=== PATIENT | male | born 1975 ===

== ENCOUNTER 2024-01-07 00:12 | Inpatient (IN) | payer OTHER, SELFPAY ==
[2024-01-07] VITALS (7 sets, daily range): BP systolic 107–148; BP diastolic 76–97; PULSE 68–99; RESP 12–18; TEMP 36–37.8; O2SAT 94–100; BMI 30.5
--- NOTE | 2024-01-07 | ECG_ITS ---
Test Reason : AMS Blood Pressure : / mmHG Vent. Rate : 085 BPM Atrial Rate : 085 BPM P-R Int : 166 ms QRS Dur : 084 ms QT Int : 370 ms P-R-T Axes : 055 005 016 degrees QTc Int : 440 ms Normal sinus rhythm Normal ECG No previous ECGs available Referred By: Generic ED Physician Electronically Signed By:BRENNAN PAINTING
--- NOTE | ~2024-01-07 | XR_ITS ---
EXAMINATION: XR CHEST CLINICAL INFORMATION: Aspiration pneumonia, cough COMPARISON: None available. TECHNIQUE: Frontal view of the chest was obtained. FINDINGS: Lung volumes are symmetric. No focal consolidation is seen. No evidence of pneumothorax, pleural effusion, or pulmonary edema. The cardiomediastinal contour is unremarkable. No acute osseous findings are seen. XR/XR chest 1V IMPRESSION: No acute cardiopulmonary findings.
--- NOTE | ~2024-01-07 | CT_ITS ---
EXAMINATION: CT HEAD WITHOUT CONTRAST CLINICAL INFORMATION: Agitation, now sedated. COMPARISON: None TECHNIQUE: Contiguous axial imaging was performed from the skull base to vertex without intravenous administration of contrast. This CT examination was performed using dose optimization techniques as appropriate, variously including the following: *Automated exposure control *Adjustment of mA and/or kV according to patient size (this includes techniques or standardized protocols for targeted exams where dose is matched to indication/reason for exam; i.e. extremities or head) *Use of iterative reconstruction technique DLP: 692 mGy-cm FINDINGS: There is no evidence of acute intracranial hemorrhage or edematous territorial infarction. There is no abnormal attenuation within the brain parenchyma. Leon-white matter differentiation is preserved. The ventricles are normal in size and configuration. No evidence for obstructive hydrocephalus. No abnormal mass effect or midline shift. No extra-axial fluid collections. No acute soft tissue or osseous abnormalities. The mastoid air cells and paranasal sinuses are clear. CT/CT head/brain wo IV con IMPRESSION: No evidence of acute intracranial hemorrhage or edematous territorial infarction.
--- NOTE | 2024-01-07 00:52 | MHC.EDTECH ---
Pt refused lab work. SABI Vera aware.
--- NOTE | 2024-01-07 01:40 | PC.NURSE ---
Pt continues to be confused in bed. Pt was uncooperative for lab draw. Per EMS, pt was given multiple doses of ativan prior to coming to the emergency room. Pt is nondiaphoretic, slight tremors in the hands. Pt keeps sitting up in bed, grabbing for a bedside chair. Pt is redirectable but continues to sit up and get to the edge of the bed.
--- NOTE | 2024-01-07 02:03 | PC.NURSE ---
20g IV placed in the right AC. Labs drawn and sent
[2024-01-07 02:09] LABS: Eosinophils Absolute Auto 0.1 X10*3/uL (0.0-0.4); Eosinophils Percent Auto 1.2 % (0-4); Hemoglobin 12.6 g/dl (14.0-18.0); PLT CLUMP 1; SCAN SMEAR FLAG 1
[2024-01-07 02:10] LABS: Basophils Percent Auto 0.8 % (0-2); Hematocrit 36.5 % (42.0-52.0); Imm Gran Abs Auto 0.01 X10*3/uL (0.00-0.03); Imm Gran Pct Auto 0.2 % (0.0-0.4); Lymphocytes Absolute Auto 1.1 X10*3/uL (1.2-4.9); Lymphocytes Percent Auto 22.8 % (20-40); Mean Corpuscular HGB Conc 34.5 g/dl (31.0-36.0); Mean Corpuscular Hemoglobin 33.4 pg (27.0-33.0); Mean Corpuscular Volume 96.8 fL (80.0-98.0); Monocytes Absolute Auto 0.6 X10*3/uL (0.1-1.2); Monocytes Percent Auto 11.4 % (2-11); Neutrophils Absolute Auto 3.1 x10*3/uL (2.0-8.3); Neutrophils Percent Auto 63.6 % (45-73); Red Blood Count 3.77 X10*6/uL (4.60-5.80); Red Cell Distribution Width 13.5 % (11.0-16.0)
[2024-01-07 02:11] LABS: White Blood Count 4.8 X10*3/uL (4.8-10.8)
[2024-01-07 02:12] LABS: MANUAL DIFF FLAG NO
[2024-01-07 02:20] LABS: Appearance Urine Clear; Color Urine Dark Yellow; Glucose Urine UA Negative (Negative); Leukocyte Esterase Urine Trace (Negative); Nitrite Urine Negative (Negative); PH 6.5 (5.0-9.0); UMIC TRIGGER UACC YES; Urine Blood Negative (Negative); Urine Ketones Trace mg/dL (Negative); Urine Protein Trace mg/dL (Neg-Trace)
[2024-01-07 02:26] LABS: Alanine Aminotransferase 289 U/L (0-40); Albumin Level 4.4 g/dL (3.5-5.0); Alkaline Phosphatase 69 U/L (39-117); Anion Gap 15 (12-20); Aspartate Amino Transferase 335 U/L (5-37); Bilirubin Total 1.4 mg/dL (0.0-1.0); Blood Urea Nitrogen 13 mg/dL (9-16); Carbon Dioxide 25 mmol/L (22-29); Chloride 100 mmol/L (96-108); Creatinine Clr Calc Pharmacy 121.9; Estimated Glomerular Filt Rate > 60; Ethanol < 10 mg/dL; Glucose Random 97 mg/dL (60-115); Potassium 3.9 mmol/L (3.3-5.1); Sodium 136 mmol/L (135-145)
--- NOTE | 2024-01-07 02:28 | ED_ITS ---
HPI - Altered Mental Status General Chief Complaint: Altered Mental Status Stated Complaint: detoxing Time Seen by Provider: 01/07/24 01:57 Source: EMS, RN notes reviewed and old records reviewed Mode of arrival: EMS Limitations: altered mental status History of Present Illness HPI narrative: A 48-year-old patient with psych history brought in from inpatient psych arguelles in [facility] for concern of substance withdrawal, patient is unable to provide any history history was obtained from old records from [facility]. Pertinent history of alcohol use disorder, opiate use disorder in remission on Suboxone, depression, HTN, possibly TBI, HLD. Patient was sent from [facility] for deterioration of mental status and becoming more tremors and anxious predicting withdrawal. Unknown last alcohol use. But patient found to be in the emergency department anxious, significant tremors, anxious, fidgety and restless. Related Data Allergies Allergy/AdvReac Type Severity Reaction Status Date / Time Unable to Assess Allergy Verified 01/07/24 00:32 Review of Systems 2 Review of Systems: Yes Unobtainable due to mental status Physical Exam ED Vital Signs: Vital Signs - 24 hr 01/07/24 00:29 01/07/24 02:53 Temperature 100.1 F 99.9 F Pulse Rate 91 79 Respiratory Rate 14 16 Blood Pressure 107/79 148/93 H Pulse Oximetry 95 95 Oxygen Delivery Method Room Air Room Air BMI result Body Mass Index 30.5 Vital signs have been reviewed and appear to be correct. Blood pressure elevated. Heart rate normal. Respiratory rate normal. Temperature normal. Oxygen saturation normal. Appearance: restless, disregard examiner, not following commands, with apparent involuntary tremors and tongue fasciculation Head: Normal external exam. Normocephalic. Atraumatic. No Garcia signs noted. No raccoon eyes noted Eyes: PERRLA. EOMI. Conjunctiva and sclera normal. Eyelids normal. ENT: TM's Normal. Pharynx normal. Uvula midline. Moist mucous membranes. No trismus noted. No drooling noted. No muffled voice noted. Neck: Normal inspection. Neck supple. FROM. No adenopathy. Thyroid Normal. No meningeal signs. No neck mass noted. CVS: Normal heart rate and rhythm. Heart sound normal. No murmurs noted. Pulses normal throughout. Respiratory: No respiratory distress. Painless inspiration. Breath sounds normal. No wheezes/rales/rhonchi noted. Chest nontender. No accessory muscle usage noted or decreased air movement noted. Abdomen: Soft and nontender. Bowel sounds normal in all 4 quadrants. No distention noted. No organomegaly noted. No visible injury noted. Back: No CVA tenderness. Full range of motion noted. Skin: Skin warm and dry. Normal skin color. Normal skin turgor. No rashes/lesions/lacerations noted. Extremities: No lower extremity edema. Extremities exhibit normal range of motion. Extremities nontender. Neuro: Cranial nerve exam: II-XII are grossly intact No motor deficit. No sensory deficit. Reflexes normal. Course Reevaluation(s) Reevaluation #1: 48-year-old male with severe alcohol withdrawal symptoms and acute mental status change, no visual hallucination, patient started on phenobarb protocol for alcohol withdrawal. Patient will need medical admission to continue with phenobarbital protocol. Time: 03:58 Medications Administered Discontinued Medications Generic Name Dose Route Start Last Admin Trade Name Freq PRN Reason Stop Dose Admin Buprenorphine/Naloxone 1 film 01/07/24 02:27 01/07/24 02:37 Buprenorphine/Naloxone 8/2 Mg Film SUBLINGUAL 01/07/24 02:28 1 film ONCE ONE Administration Lorazepam 2 mg 01/07/24 03:24 01/07/24 03:44 Lorazepam 2 Mg/Ml Vial IVPUSH 01/07/24 03:25 2 mg ONCE ONE Administration Phenobarbital Sodium 307 mg 01/07/24 03:30 01/07/24 03:43 Phenobarbital Sodium 130 Mg/Ml Im Once IM 01/07/24 03:31 307 mg ONCE ONE Administration Medical Decision Making Differential Diagnosis Differential Diagnoses: The differential diagnosis associated with the presentation includes (Alcohol withdrawal, opiate withdrawal, electrolyte derangement, severe anemia, UTI, pneumonia, pneumothorax.) Admission/Observation Consideration of admission/observation: Escalation of care including admission/observation considered Consult Healthcare Provider Management of the patient was discussed with: Hospitalist (Dr. Tidwell) Lab Data MDM Lab Attestation statement: I reviewed the patient's lab results. 01/07/24 02:03 01/07/24 02:04 Labs: Lab Results 01/07/24 01/07/24 01/07/24 Range/Units 02:03 02:04 02:13 WBC 4.8 (4.8-10.8) X10*3/uL RBC 3.77 L (4.60-5.80) X10*6/uL Hgb 12.6 L (14.0-18.0) g/dl Hct 36.5 L (42.0-52.0) % MCV 96.8 (80.0-98.0) fL MCH 33.4 H (27.0-33.0) pg MCHC 34.5 (31.0-36.0) g/dl RDW 13.5 (11.0-16.0) % Plt Count 87 L (160-400) X10*3/uL MPV 11.0 (9.4-12.4) fL Immature Gran % (Auto) 0.2 (0.0-0.4) % Neut % (Auto) 63.6 (45-73) % Lymph % (Auto) 22.8 (20-40) % [place] % (Auto) 11.4 H (2-11) % Eos % (Auto) 1.2 (0-4) % Baso % (Auto) 0.8 (0-2) % Lymph # (Auto) 1.1 L (1.2-4.9) X10*3/uL [place] # (Auto) 0.6 (0.1-1.2) X10*3/uL Eos # (Auto) 0.1 (0.0-0.4) X10*3/uL Baso # (Auto) 0.0 (0.0-0.2) X10*3/uL Abs Immat Gran (auto) 0.01 (0.00-0.03) X10*3/uL Absolute Neuts (auto) 3.1 (2.0-8.3) x10*3/uL Absolute Nucleated RBC 0.000 (0.0-0.012) X10*3/uL Nucleated RBC % (auto) 0.0 (0.0-0.2) /100WBC Sodium 136 (135-145) mmol/L Potassium 3.9 (3.3-5.1) mmol/L Chloride 100 (96-108) mmol/L Carbon Dioxide 25 (22-29) mmol/L Anion Gap 15 (12-20) BUN 13 (9-16) mg/dL Creatinine 0.76 (0.5-1.4) mg/dL Estim Creat Clear Calc 121.9 Estimated GFR > 60 Random Glucose 97 (60-115) mg/dL Calcium 10.0 (8.4-10.2) mg/dL Total Bilirubin 1.4 H (0.0-1.0) mg/dL AST 335 H (5-37) U/L ALT 289 H (0-40) U/L Alkaline Phosphatase 69 (39-117) U/L Total Protein 8.0 (6.5-8.0) g/dL Albumin 4.4 (3.5-5.0) g/dL Urine Color Dark Yellow Urine Appearance Clear Urine pH 6.5 (5.0-9.0) Ur Specific [place] 1.020 (1.005-1.025) Urine Protein Trace (Neg-Trace) mg/dL Urine Glucose (UA) Negative (Negative) mg/dL Urine Ketones Trace (Negative) mg/dL Urine Blood Negative (Negative) Urine Nitrite Negative (Negative) Ur Leukocyte Esterase Trace H (Negative) Urine RBC 0-2 (0-2) /HPF Urine WBC 0-5 (0-5) /HPF Ur Squamous Epith Cells 3-5 (0-2) /HPF Urine Bacteria None Seen (None Seen) Hyaline Casts 0-2 (0-2) /LPF Urine Opiates Screen Not Detected (Not Detect) Ur Buprenorphine Scrn Positive H (Not Detect) ng/mL Ur Oxycodone Screen Not Detected (Not Detect) ng/mL Urine Methadone Screen Not Detected (Not Detect) ng/mL Urine Fentanyl Screen Not Detected (Not Detect) Acetaminophen < 3 (<30) mcg/mL Ur Barbiturates Screen Not Detected (Not Detect) Ur Phencyclidine Scrn Not Detected (Not Detect) Ur Amphetamines Screen Not Detected (Not Detect) U Benzodiazepines Scrn POSITIVE H (Not Detect) Urine Cocaine Screen Not Detected (Not Detect) U Marijuana (THC) Screen Not Detected (Not Detect) Ethyl Alcohol < 10 mg/dL Independent Interpretation I performed an independent interpretation of an: Plain X-Ray (Chest: No acute intrathoracic pathology.) Radiology Impression Discussion of test interpretation with radiology: I have reviewed the radiologist's reading. Discharge Plan Discharge Clinical Impression: Alcohol withdrawal Patient Disposition: Admitted As Inpatient
[2024-01-07 02:33] LABS: Acetaminophen LAB < 3 mcg/mL (<30)
[2024-01-07] MEDS: Buprenorphine/Naloxone 8/2 mg FILM 1 FILM SUBLINGUAL (02:37)
[2024-01-07 02:38] LABS: Platelet Count 87 X10*3/uL (160-400)
[2024-01-07 02:40] LABS: Amphetamine Screen Urine Not Detected (Not Detect); Barbiturates, Urine Not Detected (Not Detect); Benzodiazepines Screen Urine POSITIVE (Not Detect); Buprenorphine Scr Positive (Not Detect); Cannabinoid Screen Urine Not Detected (Not Detect); Cocaine Screen Urine Not Detected (Not Detect); Fentanyl, urine Not Detected (Not Detect); Methadone Screen, Urine Not Detected (Not Detect); Opiate Screen Urine Not Detected (Not Detect); Oxycodone Screen Urine Not Detected (Not Detect); Phencyclidine Screen Urine Not Detected (Not Detect)
[2024-01-07 02:50] LABS: Bacteria Urine None Seen (None Seen); Hyaline Casts Urine 0-2 /LPF (0-2); RBC Urine 0-2 /HPF (0-2); WBC Urine 0-5 /HPF (0-5)
--- NOTE | 2024-01-07 03:30 | PC.NURSE ---
Spoke with Cande from [facility] who updated me on pt's situation. Pt came to [facility] from [facility] here he presented on 01/03 for alcohol withdrawals. Pt was brought to [facility] on 01/05 and still had alcohol in his system. Over the next several hours, pt started to go into withdrawals, hallucinating and tremors. Pt has history of PTSD, mood disorder, and possible TBI/cognitive impairment. Pt is on suboxone but is in recovery from opioids.
[2024-01-07] MEDS: PHENobarbitaL sodium 130 MG/ML IM ONCE 307 MG IM (03:43)
[2024-01-07] MEDS: LORazepam 2 MG/ML VIAL IVPUSH (03:44)
--- NOTE | 2024-01-07 03:48 | PC.NURSE ---
Pt continues to be restless and attempting to get out of bed. Pt gas become not redirectable. Medicated with IV ativan and IM phenobarb per NOV. Pt resting in bed at this time.
[2024-01-07] MEDS: PHENobarbitaL sodium 130 MG/ML VIAL IM Q3Hx2 230 MG IM ×2 (06:37→09:36)
[2024-01-07] MEDS: Lactated Ringers 1,000 ML 999 ML IV (09:18)
--- NOTE | 2024-01-07 09:19 | PC.NURSE ---
this RN resumed care of pt at 0700. pt resting comfortably in no apparent distress/asleep. no sob/wob noted. respirations even and unlabored. IVF administered per provider order. pt to CT at this time. 1:1 sitter present. will resume care of pt when he returns. plan of care ongoing.
--- NOTE | 2024-01-07 09:21 | PHA.MEDREC ---
Pharmacy Consult ? Medication Reconciliation Pharmacy has completed the medication reconciliation. List from [facility]
--- NOTE | 2024-01-07 09:38 | PC.NURSE ---
pt returned from CT at this time. vss and up to date. phenobarb administered in left deltoid per protocol. pt continues to rest comfortably in stretcher in no apparent distress. no sob/wob noted. respirations even and unlabored. 1:1 sitter remains present. call spaulding placed within reach.
--- NOTE | 2024-01-07 10:55 | PM.IMHP ---
History of Present Illness Date of Service: 01/07/24 Chief Complaint: alcohol withdrawal The patient is a 48 year old male with a PMH of alcohol use disorder, opiate use disorder on suboxone, depression and ? TBI who is sent in from [facility] over concerns of alcohol withdrawal. History is obtained from the ED charts as the patient is currently unable to provide a meaningful history. It appears the patient was admitted to [facility] on the evening of 01/04. He had been transferred from [facility] after a section 12 was filed by his outpatient provider. It appears that within 24 hours of arrival to [facility], the patient began exhibiting signs of alcohol withdrawal and was sent here. In the ED, the patient was noted to be confused, tremulous and unable to obey commands. He was treated with IV ativan and initiated on phenobarbital for alcohol withdrawl. His blood work shows AST/ALT elevation 335/289, T bili 1.4, platelets 87. The patient is seen and examined this AM around 845AM. At that time, he was sedated and minimally responsive. A CT head has been ordered and pending. THe patient is re-evaluated around 1015AM. He is more alert and able to sit up. He eventually is able to tell me the day of the week but otherwise remains confused. He does not know how he ended up here. He thinks his last drink was last night. Review of Systems Review of Systems: unable to review [facility] Social History Household Members: Unknown / Unable to assess Housing: Unknown / Unable to assess Comment: 1:1 sitter Patient Tobacco Use Status: Tobacco use Unknown Use of substances other than those prescribed or required for medical reasons: Unable to respond Currently Displaying Signs/Symptoms of Drug Intoxication Withdrawal: No Advance Directives: Yes Advance Directives Information Provided: Yes Advance Directives on File: No Advance Directives Date on File: 01/07/24 Do you have a plan to hurt others: No Plan Recently lost weight without trying: Unsure Nutrition Risks: No Nutritional Risk service: No Meds Allergies Allergy/AdvReac Type Severity Reaction Status Date / Time Unable to Assess Allergy Verified 01/07/24 00:32 Active Medications: Current Medications Acetaminophen (Acetaminophen 325 Mg Tablet) 650 mg PO Q6H PRN PRN Reason: Pain, Mild (Pain Scale 1-3) Pharmacy Consult (Consult Rx Etoh Phenob Im/Po) 1 each MISCELLANE ONCE PRN; Protocol PRN Reason: Consult order Phenobarbital (Phenobarbital 15 Mg Tablet) 45 mg PO BID [facility]; Protocol Stop: 01/09/24 09:01 Phenobarbital (Phenobarbital 30 Mg Tablet) 30 mg PO BID [facility]; Protocol Stop: 01/11/24 09:01 Phenobarbital (Phenobarbital 15 Mg Tablet) 15 mg PO DAILY [facility]; Protocol Stop: 01/13/24 09:01 Sodium Chloride (0.9 % Sodium Chloride Flush 3 Ml Syringe) [facility] Medications ?Medication ?Instructions ?Recorded ?Confirmed ?Last Taken ?Type acetaminophen 325 mg tablet 650 mg PO Q4H PRN Pain (Scale 01/07/24 01/07/24 Unknown History Score 1-3) buprenorphine 8 mg-naloxone 2 mg 1 film sublingual DAILY 01/07/24 01/07/24 Unknown History sublingual film gabapentin 300 mg capsule 600 mg PO TID PRN neuropathy 01/07/24 01/07/24 Unknown History hydroxyzine pamoate 50 mg capsule 50 mg PO TID PRN Anxiety 01/07/24 01/07/24 Unknown History ibuprofen 400 mg tablet 400 mg PO Q6H PRN Pain, Mild 01/07/24 01/07/24 Unknown History lorazepam 1 mg tablet 1 mg PO Q2H PRN ciwa 10-14 01/07/24 01/07/24 Unknown History lorazepam 1 mg tablet 2 mg PO Q1H PRN ciwa 15 or greater 01/07/24 01/07/24 Unknown History nicotine (polacrilex) 2 mg gum 2 mg buccal Q2H PRN Nicotine 01/07/24 01/07/24 Unknown History Cravings nicotine 21 mg/24 hr daily 1 patch transdermal DAILY 01/07/24 01/07/24 Unknown History transdermal patch olanzapine 5 mg tablet 5 mg PO BEDTIME 01/07/24 01/07/24 Unknown History olanzapine 5 mg tablet 5 mg PO BID PRN restlessness and 01/07/24 01/07/24 Unknown History agitation trazodone 100 mg tablet 200 mg PO BEDTIME PRN Sleep 01/07/24 01/07/24 Unknown History Physical Exam Vital Signs and Narrative: Vital Signs: Last Vital Signs Temp 97.5 F 01/07/24 06:04 Pulse 75 01/07/24 06:04 Resp 14 01/07/24 09:44 BP 139/97 H 01/07/24 09:44 Pulse Ox 95 01/07/24 09:44 O2 Del Method Room Air 01/07/24 09:44 BMI result Body Mass Index 30.5 Const: Other: Constitutional - initially sedated but later more alert but remains confused; +tremors; Eyes - PERRLA, EOMI Cardiovascular - S1S2, RRR, No edema Respiratory - Normal lung expansion, Normal respiratory effort, No respiratory distress, CTA bilaterally Gastrointestinal - NT / ND; +BS; No rebound or guarding - No CVA tenderness Extremities - no calf tenderness bilaterally, no swelling Musculoskeletal - Normal inspection, normal ROM Skin - Warm/Dry Neurological - disoriented x 2; +tremors; moves all 4 limbs, obeys basic commands Psychological - Appropriate affect Results Labs 01/08/24 07:01 01/08/24 07:01 Labs: Laboratory Results - last 24 hr 01/07/24 01/07/24 01/07/24 02:03 02:04 02:13 MCV 96.8 MCH 33.4 H MCHC 34.5 RDW 13.5 Plt Count 87 L MPV 11.0 Immature Gran % (Auto) 0.2 Neut % (Auto) 63.6 Lymph % (Auto) 22.8 [place] % (Auto) 11.4 H Eos % (Auto) 1.2 Baso % (Auto) 0.8 Lymph # (Auto) 1.1 L [place] # (Auto) 0.6 Eos # (Auto) 0.1 Baso # (Auto) 0.0 Abs Immat Gran (auto) 0.01 Absolute Neuts (auto) 3.1 Absolute Nucleated RBC 0.000 Nucleated RBC % (auto) 0.0 Anion Gap 15 Estim Creat Clear Calc 121.9 Estimated GFR > 60 Random Glucose 97 Calcium 10.0 Total Bilirubin 1.4 H AST 335 H ALT 289 H Alkaline Phosphatase 69 Total Protein 8.0 Albumin 4.4 Urine Color Dark Yellow Urine Appearance Clear Urine pH 6.5 Ur Specific [place] 1.020 Urine Protein Trace Urine Glucose (UA) Negative Urine Ketones Trace Urine Blood Negative Urine Nitrite Negative Ur Leukocyte Esterase Trace H Urine RBC 0-2 Urine WBC 0-5 Ur Squamous Epith Cells 3-5 Urine Bacteria None Seen Hyaline Casts 0-2 Urine Opiates Screen Not Detected Ur Buprenorphine Scrn Positive H Ur Oxycodone Screen Not Detected Urine Methadone Screen Not Detected Urine Fentanyl Screen Not Detected Acetaminophen < 3 Ur Barbiturates Screen Not Detected Ur Phencyclidine Scrn Not Detected Ur Amphetamines Screen Not Detected U Benzodiazepines Scrn POSITIVE H Urine Cocaine Screen Not Detected U Marijuana (THC) Screen Not Detected Ethyl Alcohol < 10 Imaging Radiologist's Impressions: Impressions Chest X-Ray 01/07/24 02:41 IMPRESSION: No acute cardiopulmonary findings. Assessment and Plan (1) Alcohol withdrawal: Status: Acute Plan 48 yo M with alcohol use disorder, opiate use disorder, depression/anxiety, ? TBI who presented from [facility] with what appears to be alcohol withdrawal. 1. Suspected alcohol withdrawal syndrome initiated on phenobarb protocol; continue monitor with CIWA and give additional doses as needed monitor vitals and labs npo until more alert 2. Acute hepatitis mild and likely related to alcohol trend labs 3. Thrombocytopenia unclear baseline likely secondary to alcohol use trend 4. Mood continue baseline meds once more awake DVT pptx - mechanical due to thrombocytopenia Pt with what appears to be severe alcohol withdrawal and therefore expected to require 48-72 hours (at a minimum 2 midnights) of treatment in the hospital, hence will be admitted as inpatient. Quality Stroke Does the patient have a stroke diagnosis?: No VTE Prior VTE?: No VTE Risk Level:: Medical - moderate - high VTE Device Contraindication: N/A - Device Ordered VTE Drug Contraindication: Treatment Not Indicated
[2024-01-07] MEDS: 0.9 % Sodium Chloride Flush 3 ML SYRINGE IVFLUSH ×2 (15:50→19:51)
[2024-01-07] MEDS: PHENobarbitaL 15 MG TABLET 45 MG PO (19:50)
[2024-01-07] MEDS: OLANZapine 5 MG TABLET PO (19:51)
[2024-01-07] MEDS: traZODone HCL 100 MG TABLET 200 MG PO (23:36)
[2024-01-08] MEDS: PHENobarbitaL sodium 130 MG/ML VIAL IM (00:47)
[2024-01-08] MEDS: hydrOXYzine HCL 50 MG TABLET PO ×2 (01:12→17:15)
[2024-01-08 04:00] VITALS: BP 130/69; PULSE 71; RESP 16; TEMP 36.6; O2SAT 96
[2024-01-08 07:27] VITALS: BP 101/71; PULSE 72; RESP 18; TEMP 36.7; O2SAT 97
[2024-01-08 07:36] LABS: Alanine Aminotransferase 299 U/L (0-40); Albumin Level 4.2 g/dL (3.5-5.0); Alkaline Phosphatase 69 U/L (39-117); Anion Gap 15 (12-20); Aspartate Amino Transferase 275 U/L (5-37); Bilirubin Total 1.5 mg/dL (0.0-1.0); Blood Urea Nitrogen 10 mg/dL (9-16); Carbon Dioxide 26 mmol/L (22-29); Chloride 98 mmol/L (96-108); Creatinine Clr Calc Pharmacy 125.2; Estimated Glomerular Filt Rate > 60; Glucose Random 97 mg/dL (60-115); Potassium 3.6 mmol/L (3.3-5.1); Sodium 135 mmol/L (135-145); Total Protein 7.8 g/dL (6.5-8.0)
[2024-01-08] MEDS: PHENobarbitaL 15 MG TABLET 45 MG PO ×2 (08:08→20:53)
[2024-01-08] MEDS: Buprenorphine/Naloxone 8/2 mg FILM 1 FILM SUBLINGUAL (08:08)
[2024-01-08] MEDS: Nicotine 21 MG PATCH.TD24 TRANSDERMA (08:08)
[2024-01-08] MEDS: 0.9 % Sodium Chloride Flush 3 ML SYRINGE IVFLUSH ×3 (08:09→20:55)
[2024-01-08 08:28] LABS: Hematocrit 37.5 % (42.0-52.0); Hemoglobin 12.9 g/dl (14.0-18.0); Mean Corpuscular HGB Conc 34.4 g/dl (31.0-36.0); Mean Corpuscular Hemoglobin 33.7 pg (27.0-33.0); Mean Corpuscular Volume 97.9 fL (80.0-98.0); Mean Platelet Volume 11.2 fL (9.4-12.4); Platelet Count 100 X10*3/uL (160-400); Red Blood Count 3.83 X10*6/uL (4.60-5.80); Red Cell Distribution Width 13.2 % (11.0-16.0)
[2024-01-08 11:24] VITALS: BP 116/79; PULSE 64; RESP 18; TEMP 36.3; O2SAT 99
--- NOTE | 2024-01-08 12:43 | P.PNIM_ITS ---
Subjective Subjective Date of Service: 01/08/24 Interval History: Seen and examined this morning For alcohol withdrawal Awake, alert but with mild disorientation Received an additional dose of IM phenobarbital overnight CIWA trending down No specific complaints this morning Review of Systems Review of Systems: Yes all other systems are reviewed and are negative Constitutional Constitutional: Denies chills and Denies fever(s) Cardiovascular Cardiovascular: Denies chest pain, Denies palpitations and Denies dyspnea Respiratory Respiratory: Denies cough and Denies dyspnea Endocrine Endocrine: Denies palpitations Physical Exam 2 Vital Signs: Vital Signs: Last Vital Signs Temp 97.4 F 01/08/24 11:24 Pulse 64 01/08/24 11:24 Resp 18 01/08/24 11:24 BP 116/79 01/08/24 11:24 Pulse Ox 99 01/08/24 11:24 O2 Del Method Room Air 01/08/24 11:24 BMI result Body Mass Index 30.5 Const: General: cooperative, comfortable, no acute distress, alert and awake Nutritional Appearance: average body habitus Orientation/consciousness: p atient oriented x3 Resp: Effort & Inspection: normal respiratory effort, able to speak in complete sentences, no respiratory distress and no use of accessory muscles Cardio: Rate: regular rate GI: Inspection: No distended Palpation (GI): Soft to palpation and nontender Neuro: General: patient oriented x3, moves all extremities and CN's II-XI intact bilaterally Extrem: General: Yes no pedal edema Objective Data Active Medications Acetaminophen (Acetaminophen 325 Mg Tablet) 650 mg PO Q6H PRN PRN Reason: Pain, Mild (Pain Scale 1-3) Buprenorphine/Naloxone (Buprenorphine/Naloxone 8/2 Mg Film) 1 film SUBLINGUAL DAILY [facility] Last Admin: 01/08/24 08:08 Dose: 1 film Documented By: DULCE MARIA Hydroxyzine HCl (Hydroxyzine Hcl 50 Mg Tablet) 50 mg PO TID PRN PRN Reason: Anxiety Last Admin: 01/08/24 01:12 Dose: 50 mg Documented By: HOLDEN Nicotine (Nicotine 21 Mg Patch.Td24) 21 mg TRANSDERMA DAILY [facility] Last Admin: 01/08/24 08:08 Dose: 21 mg Documented By: DULCE MARIA Nicotine Polacrilex (Nicotine Polacrilex 2 Mg Gum) 2 mg BUCCAL Q2H PRN PRN Reason: Nicotine Cravings Olanzapine (Olanzapine 5 Mg Tablet) 5 mg PO BID PRN PRN Reason: restlessness and agitation Olanzapine (Olanzapine 5 Mg Tablet) 5 mg PO BEDTIME [facility] Last Admin: 01/07/24 19:51 Dose: 5 mg Documented By: JAMIE Pharmacy Consult (Consult Rx Etoh Phenob Im/Po) 1 each MISCELLANE ONCE PRN; Protocol PRN Reason: Consult order Phenobarbital (Phenobarbital 15 Mg Tablet) 45 mg PO BID [facility]; Protocol Stop: 01/09/24 09:01 Last Admin: 01/08/24 08:08 Dose: 45 mg Documented By: DULCE MARIA Phenobarbital (Phenobarbital 30 Mg Tablet) 30 mg PO BID [facility]; Protocol Stop: 01/11/24 09:01 Phenobarbital (Phenobarbital 15 Mg Tablet) 15 mg PO DAILY [facility]; Protocol Stop: 01/13/24 09:01 Sodium Chloride (0.9 % Sodium Chloride Flush 3 Ml Syringe) 3 ml IVFLUSH QSHIFT [facility] Last Admin: 01/08/24 08:09 Dose: 3 ml Documented By: DULCE MARIA Trazodone HCl (Trazodone Hcl 100 Mg Tablet) 200 mg PO BEDTIME PRN PRN Reason: Sleep Last Admin: 01/07/24 23:36 Dose: 200 mg Documented By: JAMIE Labs 01/08/24 07:01 01/08/24 07:01 Labs: Laboratory Results - last 24 hr 01/08/24 07:01 MCV 97.9 MCH 33.7 H MCHC 34.4 RDW 13.2 Plt Count 100 L MPV 11.2 Absolute Nucleated RBC 0.000 Nucleated RBC % (auto) 0.0 Anion Gap 15 Estim Creat Clear Calc 125.2 Estimated GFR > 60 Random Glucose 97 Calcium 10.0 Total Bilirubin 1.5 H AST 275 H ALT 299 H Alkaline Phosphatase 69 Total Protein 7.8 Albumin 4.2 Assessment and Plan (1) Alcohol withdrawal: Status: Acute Plan 48 yo M with alcohol use disorder, opiate use disorder, depression/anxiety, ? TBI who presented from [facility] with what appears to be alcohol withdrawal. alcohol withdrawal syndrome Continue phenobarb protocol monitor with CIWA and give additional doses as needed Acute hepatitis mild and likely related to alcohol LFTs beginning to trend down Thrombocytopenia unclear baseline likely secondary to alcohol use Platelets stable Tobacco dependence Smoking cessation advised Mood continue baseline meds once more awake was on section 12 from [facility] to [facility] Will likely need care team evaluation once medically cleared OUD continue suboxone DVT pptx - mechanical due to thrombocytopenia Pt with what appears to be severe alcohol withdrawal and therefore expected to require 48-72 hours (at a minimum 2 midnights) of treatment in the hospital, hence will be admitted as inpatient. Quality Stroke Does the patient have a stroke diagnosis?: No VTE Prior VTE?: No VTE Risk Level:: Medical - moderate - high VTE Device Contraindication: N/A - Device Ordered VTE Drug Contraindication: Treatment Not Indicated
[2024-01-08] MEDS: OLANZapine 5 MG TABLET PO ×2 (15:31→20:54)
[2024-01-08 15:46] VITALS: BP 134/87; PULSE 68; RESP 18; TEMP 36.3; O2SAT 100
--- NOTE | 2024-01-08 16:34 | MHC.CM.PN ---
CM MET WITH PT WHO WAS MINIMALLY ENGAGED AND FALLING ASLEEP BETWEEN QUESTIONS PT DID CONFIRM HE LIVES ALONE IN [place] AND IS INDEPENDENT WITH CARE PT ONLY HAS HSN FOR INSURANCE, SO DOES NOT HAVE A PCP OR SERVICES, ALTHOUGH HE SAYS HE WOULD LIKE SOME HE IS AWARE A REFERRAL WILL BE SENT TO [facility] PT DOES NOT HAVE A HCP PT CONFIRMS HE PLANS TO RETURN TO [place] AT NH
[2024-01-08 19:45] VITALS: BP 112/70; PULSE 84; RESP 16; TEMP 36.2; O2SAT 100
[2024-01-08] MEDS: Nicotine Polacrilex 2 MG GUM BUCCAL (21:38)
[2024-01-09] VITALS (7 sets, daily range): BP systolic 136–155; BP diastolic 70–94; PULSE 67–103; RESP 16–18; TEMP 35.9–36.9; O2SAT 99
[2024-01-09] MEDS: Nicotine 21 MG PATCH.TD24 TRANSDERMA (08:49)
[2024-01-09] MEDS: 0.9 % Sodium Chloride Flush 3 ML SYRINGE IVFLUSH ×3 (08:49→20:40)
[2024-01-09] MEDS: PHENobarbitaL 15 MG TABLET 45 MG PO (08:49)
[2024-01-09] MEDS: Buprenorphine/Naloxone 8/2 mg FILM 1 FILM SUBLINGUAL (08:49)
[2024-01-09 09:06] LABS: Alanine Aminotransferase 227 U/L (0-40); Alkaline Phosphatase 66 U/L (39-117); Aspartate Amino Transferase 163 U/L (5-37); Bilirubin Direct 0.5 mg/dL (0.0-0.5); Bilirubin Total 1.1 mg/dL (0.0-1.0); Total Protein 7.5 g/dL (6.5-8.0)
--- NOTE | 2024-01-09 12:11 | MHC.RECOVRN ---
Met with pt in following consult placed to Addiction Medicine for AUD.? Chart review completed and received report from floor nurse Kenya Pt had presented to the ED with depression, SI and ETOH intoxication.? Pt was admitted to the floor for psych stabilization.? Upon assessment pt is awake and alert.? He denies any W/D sx and none observed.?? Pt reports he has been in and out of recovery for several years and has been drinking regularly since his early 20?s.? Just prior to this hospitalization pt reports he was drinking a sleeve of 100 proof nips/day. Pt reports that he has a significant h/o addiction in his family on both mother and father side.? His longest period of recovery was for 10 months.? He identifies his EDUARD?s resulting in PTSD as a significant trigger to use and is actively looking for therapy support including EMDR.? He denies any other substance use except some recreational cocaine use in the past. Pt is interested in outpatient therapy to treat his Mental health issues that contribute to his use.? He is also open minded to [facility] and was given written education on options.? Verbal education also provided.? T/W provided pt with multiple community resources along with information on how to F/U on his medical concerns.? ?? Pt declines any further need for services at this time ACS available throughout pt?s stay. Report to ?ACS team.
--- NOTE | 2024-01-09 12:30 | P.PNIM_ITS ---
Subjective Subjective Date of Service: 01/09/24 Interval History: Seen and examined this morning Follow-up for alcohol withdrawal Much improved this morning, awake, alert, no tremulousness Review of Systems Review of Systems: Yes all other systems are reviewed and are negative Constitutional Constitutional: Denies chills and Denies fever(s) Gastrointestinal Gastrointestinal: Denies nausea and Denies vomiting Physical Exam 2 Vital Signs: Vital Signs: Last Vital Signs Temp 97.6 F 01/09/24 07:30 Pulse 103 H 01/09/24 11:59 Resp 18 01/09/24 11:59 BP 149/94 H 01/09/24 07:30 Pulse Ox 99 01/09/24 07:30 O2 Del Method Room Air 01/09/24 07:30 BMI result Body Mass Index 30.5 Const: General: cooperative, comfortable, no acute distress, alert and awake Nutritional Appearance: average body habitus Orientation/consciousness: p atient oriented x3 Resp: Effort & Inspection: normal respiratory effort, able to speak in complete sentences, no respiratory distress and no use of accessory muscles Cardio: Rate: regular rate GI: Inspection: No distended Palpation (GI): Soft to palpation and nontender Neuro: General: patient oriented x3, moves all extremities and CN's II-XI intact bilaterally Extrem: General: Yes no pedal edema Objective Data Active Medications Acetaminophen (Acetaminophen 325 Mg Tablet) 650 mg PO Q6H PRN PRN Reason: Pain, Mild (Pain Scale 1-3) Buprenorphine/Naloxone (Buprenorphine/Naloxone 8/2 Mg Film) 1 film SUBLINGUAL DAILY [facility] Last Admin: 01/09/24 08:49 Dose: 1 film Documented By: DULCE MARIA Hydroxyzine HCl (Hydroxyzine Hcl 50 Mg Tablet) 50 mg PO TID PRN PRN Reason: Anxiety Last Admin: 01/08/24 17:15 Dose: 50 mg Documented By: DULCE MARIA Nicotine (Nicotine 21 Mg Patch.Td24) 21 mg TRANSDERMA DAILY [facility] Last Admin: 01/09/24 08:49 Dose: 21 mg Documented By: DULCE MARIA Nicotine Polacrilex (Nicotine Polacrilex 2 Mg Gum) 2 mg BUCCAL Q2H PRN PRN Reason: Nicotine Cravings Last Admin: 01/08/24 21:38 Dose: 2 mg Documented By: ADONIS Olanzapine (Olanzapine 5 Mg Tablet) 5 mg PO BID PRN PRN Reason: restlessness and agitation Olanzapine (Olanzapine 5 Mg Tablet) 5 mg PO BEDTIME [facility] Last Admin: 01/08/24 15:31 Dose: 5 mg Documented By: DULCE MARIA Pharmacy Consult (Consult Rx Etoh Phenob Im/Po) 1 each MISCELLANE ONCE PRN; Protocol PRN Reason: Consult order Phenobarbital (Phenobarbital 30 Mg Tablet) 30 mg PO BID [facility]; Protocol Stop: 01/11/24 09:01 Phenobarbital (Phenobarbital 15 Mg Tablet) 15 mg PO DAILY [facility]; Protocol Stop: 01/13/24 09:01 Sodium Chloride (0.9 % Sodium Chloride Flush 3 Ml Syringe) 3 ml IVFLUSH QSHIFT [facility] Last Admin: 01/09/24 08:49 Dose: 3 ml Documented By: DULCE MARIA Trazodone HCl (Trazodone Hcl 100 Mg Tablet) 200 mg PO BEDTIME PRN PRN Reason: Sleep Last Admin: 01/07/24 23:36 Dose: 200 mg Documented By: JAMIE Labs 01/08/24 07:01 01/08/24 07:01 Labs: Laboratory Results - last 24 hr 01/09/24 08:00 Total Bilirubin 1.1 H Direct Bilirubin 0.5 AST 163 H ALT 227 H Alkaline Phosphatase 66 Total Protein 7.5 Albumin 4.0 Assessment and Plan (1) Alcohol withdrawal: Status: Acute Plan 48 yo M with alcohol use disorder, opiate use disorder, depression/anxiety, ? TBI who presented from [facility] with what appears to be alcohol withdrawal. alcohol withdrawal Continue phenobarb protocol CIWA trenidng down Acute hepatitis mild and likely related to alcohol LFTs trending down Thrombocytopenia unclear baseline likely secondary to alcohol use Platelets stable Tobacco dependence Smoking cessation advised Mood continue baseline meds once more awake was on section 12 from [facility] to [facility] care team evaluation pending OUD continue suboxone DVT pptx - mechanical due to thrombocytopenia Pt with what appears to be severe alcohol withdrawal and therefore expected to require 48-72 hours (at a minimum 2 midnights) of treatment in the hospital, hence will be admitted as inpatient. Quality Stroke Does the patient have a stroke diagnosis?: No VTE Prior VTE?: No VTE Risk Level:: Medical - moderate - high VTE Device Contraindication: N/A - Device Ordered VTE Drug Contraindication: Treatment Not Indicated
[2024-01-09] MEDS: OLANZapine 5 MG TABLET PO ×2 (14:04→20:40)
--- NOTE | 2024-01-09 14:14 | MHC.CM.PN ---
Addendum entered by Fanny Stauffer RN 01/09/24 14:57: cm contacted [facility] at [phone] and front desk receptionist requested cm contact them in the am however cm will contact 4-12am maintenance supervisor to arrange. Addendum entered by Fanny Stauffer RN 01/09/24 14:29: cm contacted pt's mother Janine at 14:25pm to determine if she can transport pt tomorrow however Janine reports she has an oncology appt and is over 3hrs away and won't be able to transport pt. Original Note: cm discussed case w/care team, per care team pt could be cleared to go home however does not have transportation and report they contacted pt's mother Janine at [phone] and they cannot transport pt today, pt will likely need lyft transport and will need to stop at [facility] to citrus picker belongings including apt keys. Recovery team consult pending, per care team recovery team left at 12pm today and cm unsure if there will be someone on at 3pm.
--- NOTE | 2024-01-09 14:26 | MHC.CARE ---
Patient evaluated by the CARE Team, he does not require an inpatient psychiatric admission at this time. Providers, FRANCESCO Haynes; Fanny Morris CM, and Leila Sierra RN all updated.
[2024-01-09] MEDS: hydrOXYzine HCL 50 MG TABLET PO (15:19)
--- NOTE | 2024-01-09 16:22 | MHC.CM.PN ---
cm contacted 4-12pm supervisor webbing Trena Cordero who reports she will gather pt's belongings and place in supervisors office so when pt stops to order picker/assembler belongings he can tell whom ever he speaks to that his belongings are in house supervisors office. per previous note pt will need lYft transport w/stop at [facility] for belongings.
[2024-01-09] MEDS: PHENobarbitaL 30 MG TABLET PO (20:40)
[2024-01-09] MEDS: traZODone HCL 100 MG TABLET 200 MG PO (22:51)
[2024-01-10] MEDS: OLANZapine 5 MG TABLET PO (00:24)
[2024-01-10 03:00] VITALS: BP 156/85; PULSE 64; RESP 18; TEMP 36.6; O2SAT 100
[2024-01-10 07:47] VITALS: BP 139/80; PULSE 72; RESP 18; TEMP 36.2; O2SAT 100
[2024-01-10] MEDS: 0.9 % Sodium Chloride Flush 3 ML SYRINGE IVFLUSH (07:58)
[2024-01-10] MEDS: Nicotine 21 MG PATCH.TD24 TRANSDERMA (07:58)
[2024-01-10] MEDS: Buprenorphine/Naloxone 8/2 mg FILM 1 FILM SUBLINGUAL (07:59)
[2024-01-10] MEDS: PHENobarbitaL 30 MG TABLET PO (08:32)
--- NOTE | 2024-01-10 10:30 | P.DS_ITS ---
DS: Providers Provider Date of Service: 01/10/24 Date of admission: 01/07/24 10:52 Primary care physician: Unknown Physician Consults: 01/08/24 12:47 Addiction Medicine Routine Consulting Provider: Addiction Covering Reason for consultation: etoh withdrawal from [facility] Has provider been notified: No 01/09/24 09:25 Consult to Care Team Routine Comment: Reason for consultation: from [facility] was on sec 12; medically clear DS: Diagnosis Discharge Diagnosis (1) Alcohol withdrawal: Status: Acute DS: Summary Hospital Course Hospital Course: History and physical as per admitting provider. The patient is a 48 year old male with a PMH of alcohol use disorder, opiate use disorder on suboxone, depression and ? TBI who is sent in from [facility] over concerns of alcohol withdrawal. History is obtained from the ED charts as the patient is currently unable to provide a meaningful history. It appears the patient was admitted to [facility] on the evening of 01/04. He had been transferred from [facility] after a section 12 was filed by his outpatient provider. It appears that within 24 hours of arrival to [facility], the patient began exhibiting signs of alcohol withdrawal and was sent here. In the ED, the patient was noted to be confused, tremulous and unable to obey commands. He was treated with IV ativan and initiated on phenobarbital for alcohol withdrawl. His blood work shows AST/ALT elevation 335/289, T bili 1.4, platelets 87. The patient is seen and examined this AM around 845AM. At that time, he was sedated and minimally responsive. A CT head has been ordered and pending. The patient is re-evaluated around 1015AM. He is more alert and able to sit up. He eventually is able to tell me the day of the week but otherwise remains confused. He does not know how he ended up here. He thinks his last drink was last night. 48-year-old man treated for alcohol withdrawal symptoms. Treated with lorazepam initially then phenobarbital protocol. He was noted to have elevated LFTs secondary to alcohol abuse would have been trending down significantly. Thrombocytopenia noted likely secondary to alcohol use, stable platelet count. History of tobacco use, discussed importance of smoking cessation. In terms of his mental illness he was seen and evaluated by the care team here at [facility] on 01/09/24 and recommended discharged from [facility], no longer needing psychiatric admission. A ride will be arranged for the patient to product picker his belongings at [facility] then he will likely take the bus home as per case management. Patient was encouraged to not drink alcohol and seek outpatient resources for assistance with this. Time Attestation Discharge Coordination Time (in mins): 40 Quality: Safe Use of Opioids Does Pt have an Active Cancer Diagnosis on the Problem List?: No Quality: Stroke Does the patient have a stroke diagnosis?: No Physical Exam Vital Signs: Vital Signs: Last Vital Signs Temp 97.1 F 01/10/24 07:47 Pulse 72 01/10/24 07:47 Resp 18 01/10/24 07:47 BP 139/80 01/10/24 07:47 Pulse Ox 100 01/10/24 07:47 O2 Del Method Room Air 01/10/24 07:47 O2 Flow Rate 100 01/09/24 23:02 BMI result Body Mass Index 30.5 Appearing in no acute distress head is normocephalic atraumatic eyes pupils are PERRLA sclera is anicteric mouth throat mucous membranes are intact and moist neck is supple no lymphadenopathy, no JVD noted lung sounds are clear to auscultation heart regular rate rhythm, clear S1, S2 positive bowel sounds, abdomen is soft, nontender neuro patient is alert x3, no focal deficits Discharge Plan Discharge Anticipated Discharge Date/Time: 01/10/24 10:35 Patient Disposition: Home, Self-Care Discharge Diagnosis: Alcohol withdrawal Acute hepatitis Discharge Medications: Continued acetaminophen 325 mg Tablet 650 mg PO Q4H PRN (Reason: Pain (Scale Score 1-3)) nicotine (polacrilex) 2 mg Gum 2 mg BUCCAL Q2H PRN (Reason: Nicotine Cravings) olanzapine 5 mg Tablet 5 mg PO BEDTIME olanzapine 5 mg Tablet 5 mg PO BID PRN (Reason: restlessness and agitation) hydroxyzine pamoate 50 mg Capsule 50 mg PO TID PRN (Reason: Anxiety) trazodone 100 mg Tablet 200 mg PO BEDTIME PRN (Reason: Sleep) ibuprofen 400 mg Tablet 400 mg PO Q6H PRN (Reason: Pain, Mild) nicotine 21 mg/24 hr Patch 24 Hour 1 patch TRANSDERMAL DAILY gabapentin 300 mg capsule 600 mg PO TID PRN (Reason: neuropathy) lorazepam 1 mg Tablet 2 mg PO Q1H PRN (Reason: ciwa 15 or greater) lorazepam 1 mg Tablet 1 mg PO Q2H PRN (Reason: ciwa 10-14) buprenorphine-naloxone 8-2 mg film 1 film sublingual DAILY Discharge Orders: Discharge Order (Routine); Ordered 01/10/24 Ordered By: Krista Ness Diet: Advance to usual diet Activity on Discharge: As tolerated Stand Alone Forms: Patient Portal Discharge page Print Language: French Care Plan Goals: Do not drink alcohol, seek outpatient services for assistance with this Health Concerns: Alcohol withdrawal Acute hepatitis Plan of Treatment: Follow-up with primary care provider as needed Take all medications as prescribed Assessment: See discharge summary
--- NOTE | 2024-01-10 11:30 | MHC.CM.PN ---
This technical publications writer met w/ patient- provided pre-paid bus pass for 2PM leaving [place] to [place]. [facility] Security will bring patient to [address] to brain picker belongings. Original plan to leave [facility]@ 1245, met w/ patient he does not want to wait that long. Communicated to patient that the bus does not leave until 2PM, he wants to leave now regardless. Security agreed to leave early. RN aware.
== END 2024-01-10 11:35 | disposition home or self-care (01) | DRG 773 ==
LOC: HO.ED 08:08 → HO.EDOVER 11:14 → HO.IMC 14:07
PROVIDERS: Physician Assistant Medical; Admitting Provider Family Medicine; Emergency Provider Emergency Medicine; Visit Provider Nurse Practitioner Acute Care
DX: F10.139 Alcohol abuse with withdrawal, unspecified (principal); F11.20 Opioid dependence, uncomplicated; D69.59 Other secondary thrombocytopenia; K70.10 Alcoholic hepatitis without ascites; E78.5 Hyperlipidemia, unspecified; I10 Essential (primary) hypertension; F32.A Depression, unspecified; Z87.820 Personal history of traumatic brain injury; Z79.899 Other long term (current) drug therapy
CPT/HCPCS: 36415; 70450; 71045; 80053; 80076; 80143; 80307; 81001; 85025; 85027; 93005; 99285; J2060; J2560; J7120; S9485

== ENCOUNTER → 2024-01-07 00:36 | Outpatient (BNV) | payer OTHER, SELFPAY | PROVIDERS: Admitting Provider Family Medicine; Emergency Provider Emergency Medicine; Visit Provider Internal Medicine | DX: R41.82 Altered mental status, unspecified (principal) | CPT/HCPCS: 93010 ==

== ENCOUNTER → 2024-01-07 10:52 | Outpatient (BNV) | payer OTHER, SELFPAY | PROVIDERS: Admitting Provider Family Medicine; Emergency Provider Emergency Medicine; Visit Provider Physician Assistant Medical | DX: F10.939 Alcohol use, unspecified with withdrawal, unspecified (principal) | CPT/HCPCS: 99223; 99232; 99233; 99239 ==

== ENCOUNTER 2024-07-27 16:21 | Inpatient (IN) | payer OTHER, SELFPAY ==
--- NOTE | ~2024-07-27 | CT_ITS ---
EXAMINATION: CT HEAD WITHOUT CONTRAST CLINICAL INFORMATION: Worsening altered mental status. COMPARISON: CT head January 07, 2024 TECHNIQUE: Contiguous axial imaging was performed from the skull base to vertex without intravenous administration of contrast. Coronal and sagittal reformatted images are performed at the CT scanner. This CT examination was performed using dose optimization techniques as appropriate, variously including the following: *Automated exposure control *Adjustment of mA and/or kV according to patient size (this includes techniques or standardized protocols for targeted exams where dose is matched to indication/reason for exam; i.e. extremities or head) *Use of iterative reconstruction technique DLP: 684 mGy-cm. FINDINGS: There is no evidence of acute intracranial hemorrhage or territorial infarction. No abnormal mass-effect or midline shift is seen. Leon to white matter differentiation is well preserved. No extra-axial fluid collections are identified. The ventricles are normal in size. No abnormal attenuation within brain parenchyma. There is no osseous abnormality. The mastoid air cells and visualized portions of the paranasal sinuses are well-aerated. CT/CT head/brain wo IV con IMPRESSION: No acute intracranial pathology. Electronically signed by: Rickie Mcpherson MD 07/31/2024 04:32 PM M[facility]
--- NOTE | ~2024-07-27 | MR_ITS ---
EXAMINATION: MR BRAIN WITHOUT CONTRAST NEUROQUANT CLINICAL INFORMATION: Memory impairment COMPARISON: None. TECHNIQUE: Multiplanar, multisequence MR imaging was performed through the brain without the use of intravenous gadolinium. Additional high-resolution anatomic imaging was performed through the brain and images were submitted for post processing including auto-segmentation and volumetric analysis. FINDINGS: No acute intracranial hemorrhage or infarct. Several scattered periventricular and deep white matter T2/FLAIR hyperintensities, nonspecific however commonly seen with small vessel ischemic disease. No midline shift or hydrocephalus. No acute extra-axial fluid collections. The osseous structures are unremarkable. The pituitary gland, pineal gland and remaining midline structures are unremarkable. No orbital pathology. The paranasal sinuses and mastoid air cells are clear. Baseline NeuroQuant volumetric assessment of the hippocampi was subsequently performed. Quantitative hippocampal volumes are estimated at an age-adjusted normative percentile of 1%. Lateral ventricular size is estimated at a normative percentile rank of 99%, and the inferior lateral ventricles are estimated at 99%. MR/MR brain wo con w neuroquant IMPRESSION: Baseline volumetric measurements do not support a diagnosis of primary Alzheimer's dementia at the present time. Electronically signed by: Liya Perez MD 08/01/2024 02:09 PM [facility] BERGER
[2024-07-27 17:04] VITALS: BP 140/93; PULSE 64; RESP 18; TEMP 36.9; O2SAT 99; BMI 26.9
--- NOTE | 2024-07-27 17:18 | ED.GENADULT ---
HPI - General Adult General Chief complaint: General Medical Stated complaint: bilat ft pain/balance off-doesn't want wheelchair Time Seen by Provider: 07/27/24 18:02 Source: patient Limitations: no limitations History of Present Illness ED Provider: Shante Rosenthal PA-C HPI narrative: 49-year-old male with a history ofalcohol use disorder, opiate use disorder in remission on Suboxone, depression, HTN, possibly TBI, HLD, presents with confusion. Patient states he was just released from [facility] yesterday, he states he was standing at a gas station ?I was standing in the rain, I realize it had been 2 hours, I did not know what I was supposed to be doing?. Patient states he feels that he left [facility] too soon, he states ?they kicked me out, they have done this before because of my insurance?. Patient denies SI, HI, use of illicit substances or alcohol. Patient states he has yet to receive his medication today he is requesting to receive his medication. Related Data Home Medications ?Medication ?Instructions ?Recorded ?Confirmed buprenorphine 8 mg-naloxone 2 mg 1 film sublingual DAILY 01/07/24 07/27/24 sublingual film hydroxyzine pamoate 50 mg capsule 50 mg PO Q4H PRN Anxiety 01/07/24 07/27/24 bupropion HCl 300 mg 24 hr tablet, 300 mg PO DAILY 07/27/24 07/27/24 extended release buspirone 10 mg tablet 20 mg PO TID 07/27/24 07/27/24 clonidine HCl 0.1 mg tablet 0.1 mg PO BID 07/27/24 07/27/24 quetiapine 25 mg tablet 75 mg PO TID 07/27/24 07/27/24 trazodone 150 mg tablet 150 mg PO BEDTIME 07/27/24 07/27/24 Allergies Allergy/AdvReac Type Severity Reaction Status Date / Time No Known Allergies Allergy Verified 07/27/24 17:10 Review of Systems Review of Systems: Yes all other systems are reviewed and are negative Constitutional: Constitutional: Denies fatigue and Denies fever(s) Cardiovascular: Cardiovascular: Denies chest pain Gastrointestinal: Gastrointestinal: Denies abdominal pain Endocrine: Endocrine: Denies fatigue PMFSH Past Medical History Attestation statement: The following information was validated with the patient. Medical History (Updated 07/28/24 @ 01:05 by FRANCESCO Og) Mood disorder Depressive disorder Substance abuse Insomnia Depression Anxiety Head injury Neuropathy Surgical History (Updated 07/27/24 @ 18:35 by Neris Cole RN) S/P appendectomy Social History Social History Household Members: Unknown / Unable to assess Housing: Unknown / Unable to assess Comment: 1:1 sitter Patient Tobacco Use Status: Tobacco use Unknown Smoked in Last 30 Days: Yes Use of substances other than those prescribed or required for medical reasons: No Advance Directives: No Advance Directives Information Provided: No Advance Directives Date on File: 01/07/24 Do you have a plan to hurt others: No Plan service: No Physical Exam ED Vital Signs: Vital Signs - 24 hr 07/27/24 17:04 07/27/24 19:17 07/27/24 21:55 Temperature 98.5 F 98.3 F 98.3 F Pulse Rate 64 69 59 Respiratory Rate 18 18 18 Blood Pressure 140/93 H 124/88 111/66 Pulse Oximetry 99 96 98 Oxygen Delivery Method Room Air Room Air Room Air 07/28/24 00:54 07/28/24 06:00 Temperature 98.0 F Pulse Rate 66 Respiratory Rate 16 Blood Pressure 111/66 140/80 H Pulse Oximetry 99 Oxygen Delivery Method Room Air BMI result Body Mass Index 26.9 Const Other: Awake, appears older than stated age, pacing the room Orientation/consciousness: patient oriented x3 Resp Other: Nonlabored respiration Cardio Other: Normal peripheral perfusion Skin Other: Warm dry no rash Neuro General: patient oriented x3, no focal motor deficits and CN's II-XI intact bilaterally Psych Other: Cooperative, disorganized thought process Course Course Course Narrative: RME: 49-year-old male history of psych recently discharged from [facility] presents to ED for memory loss. Patient states he has to write down things to remember where his going. Patient feels depressed and sad. Patient is not suicidal or homicidal. Medications Administered Generic Name Dose Route Start Last Admin Trade Name Freq PRN Reason Stop Dose Admin Buprenorphine/Naloxone 1 film 07/28/24 09:00 07/28/24 09:09 Buprenorphine/Naloxone 8/2 Mg Film SUBLINGUAL 1 film DAILY RIC Administration Bupropion HCl 300 mg 07/28/24 09:00 07/28/24 09:09 Bupropion Hcl Xl 300 Mg Tab.Er.24h PO 300 mg DAILY RIC Administration Buspirone HCl 20 mg 07/27/24 23:15 07/28/24 09:55 Buspirone Hcl 10 Mg Tablet PO 20 mg TID RIC Administration Clonidine HCl 0.1 mg 07/27/24 23:15 07/28/24 09:55 Clonidine Hcl 0.1 Mg Tablet PO 0.1 mg BID RIC Administration Protocol Hydroxyzine HCl 50 mg 07/27/24 23:05 07/28/24 06:12 Hydroxyzine Hcl 50 Mg Tablet PO 50 mg Q4H PRN Administration Anxiety Quetiapine Fumarate 75 mg 07/27/24 23:15 07/28/24 09:55 Quetiapine Fumarate 25 Mg Tablet PO 75 mg TID RIC Administration Trazodone HCl 150 mg 07/27/24 23:15 07/28/24 01:04 Trazodone Hcl 50 Mg Tablet PO 150 mg BEDTIME RIC Administration Discontinued Medications Generic Name Dose Route Start Last Admin Trade Name Thomasq PRN Reason Stop Dose Admin Ibuprofen 600 mg 07/27/24 22:00 07/27/24 22:07 Ibuprofen 600 Mg Tablet PO 07/27/24 22:01 600 mg ONCE ONE Administration Medical Decision Making Medical Decision Making MDM Narrative: 49-year-old male with a history ofalcohol use disorder, opiate use disorder in remission on Suboxone, depression, HTN, possibly TBI, HLD, presents with confusion. Patient states he was just released from [facility] yesterday, he states he was standing at a gas station ?I was standing in the rain, I realize it had been 2 hours, I did not know what I was supposed to be doing?. Patient states he feels that he left [facility] too soon, he states ?they kicked me out, they have done this before because of my insurance?. Patient denies SI, HI, use of illicit substances or alcohol. Patient states he has yet to receive his medication today he is requesting to receive his medication. Problem: Substance abuse, psychiatric illness, TBI History: Per patient I have considered the following differential diagnoses: Decompensated psychiatric illness, SI, HI, drug/alcohol intoxication Plan: Patient will be referred to the care team, it sounds as if he left [facility] too soon, they are known for discharging patient's to rapidly once their insurance will not cover their treatment. We will be screening basic labs, ethanol and drug screen. I feel he requires inpatient psych. We will screen for withdrawal, given he was just released from [facility], he has not had alcohol, withdrawal we will be. He is on Suboxone, I do not foresee opiate withdrawal. I have independently reviewed the following tests: Labs: No leukocytosis, not anemic, no electrolyte abnormality, U tox positive for buprenorphine as expected, alcohol Lab Data 07/27/24 17:30 07/27/24 17:30 Labs: Lab Results 07/27/24 Range/Units 17:30 WBC 9.0 (4.8-10.8) X10*3/uL RBC 3.99 L (4.60-5.80) X10*6/uL Hgb 13.1 L (14.0-18.0) g/dl Hct 38.3 L (42.0-52.0) % MCV 96.0 (80.0-98.0) fL MCH 32.8 (27.0-33.0) pg MCHC 34.2 (31.0-36.0) g/dl RDW 14.0 (11.0-16.0) % Plt Count 217 D (160-400) X10*3/uL MPV 10.4 (9.4-12.4) fL Immature Gran % (Auto) 0.3 (0.0-0.4) % Neut % (Auto) 70.7 (45-73) % Lymph % (Auto) 20.6 (20-40) % [place] % (Auto) 5.9 (2-11) % Eos % (Auto) 1.6 (0-4) % Baso % (Auto) 0.9 (0-2) % Lymph # (Auto) 1.9 (1.2-4.9) X10*3/uL [place] # (Auto) 0.5 (0.1-1.2) X10*3/uL Eos # (Auto) 0.1 (0.0-0.4) X10*3/uL Baso # (Auto) 0.1 (0.0-0.2) X10*3/uL Abs Immat Gran (auto) 0.03 (0.00-0.03) X10*3/uL Absolute Neuts (auto) 6.4 (2.0-8.3) x10*3/uL Absolute Nucleated RBC 0.000 (0.0-0.012) X10*3/uL Nucleated RBC % (auto) 0.0 (0.0-0.2) /100WBC Sodium 137 (135-145) mmol/L Potassium 3.6 (3.3-5.1) mmol/L Chloride 98 (96-108) mmol/L Carbon Dioxide 29 (22-29) mmol/L Anion Gap 14 (12-20) BUN 17 H (9-16) mg/dL Creatinine 0.85 (0.5-1.4) mg/dL Estim Creat Clear Calc 108.5 Estimated GFR > 60 Random Glucose 94 (60-115) mg/dL Calcium 10.4 H (8.4-10.2) mg/dL Total Bilirubin 0.3 (0.0-1.0) mg/dL AST 22 (5-37) U/L ALT 20 (0-40) U/L Alkaline Phosphatase 82 (39-117) U/L Ammonia 35 (13-55) umol/L Total Protein 8.5 H (6.5-8.0) g/dL Albumin 5.1 H (3.5-5.0) g/dL Urine Opiates Screen Not Detected (Not Detect) Ur Buprenorphine Scrn Positive H (Not Detect) ng/mL Ur Oxycodone Screen Not Detected (Not Detect) ng/mL Urine Methadone Screen Not Detected (Not Detect) ng/mL Urine Fentanyl Screen Not Detected (Not Detect) Ur Barbiturates Screen Not Detected (Not Detect) Ur Phencyclidine Scrn Not Detected (Not Detect) Ur Amphetamines Screen Not Detected (Not Detect) U Benzodiazepines Scrn Not Detected (Not Detect) Urine Cocaine Screen Not Detected (Not Detect) U Marijuana (THC) Screen Not Detected (Not Detect) Ethyl Alcohol < 10 mg/dL Discharge Plan Discharge Clinical Impression: Disorganized thought process Patient Disposition: Still a Patient Prescriptions: No Action clonidine HCl 0.1 mg tablet 0.1 mg PO BID quetiapine 25 mg tablet 75 mg PO TID buspirone 10 mg tablet 20 mg PO TID trazodone 150 mg tablet 150 mg PO BEDTIME bupropion HCl 300 mg tablet extended release 24 hr 300 mg PO DAILY hydroxyzine pamoate 50 mg Capsule 50 mg PO Q4H PRN (Reason: Anxiety) buprenorphine-naloxone 8-2 mg film 1 film sublingual DAILY Print Language: Mongolian
[2024-07-27 17:39] LABS: MANUAL DIFF FLAG NO
[2024-07-27 17:43] LABS: Basophils Absolute Auto 0.1 X10*3/uL (0.0-0.2); Basophils Percent Auto 0.9 % (0-2); Eosinophils Absolute Auto 0.1 X10*3/uL (0.0-0.4); Eosinophils Percent Auto 1.6 % (0-4); Hematocrit 38.3 % (42.0-52.0); Hemoglobin 13.1 g/dl (14.0-18.0); Imm Gran Abs Auto 0.03 X10*3/uL (0.00-0.03); Imm Gran Pct Auto 0.3 % (0.0-0.4); Lymphocytes Absolute Auto 1.9 X10*3/uL (1.2-4.9); Lymphocytes Percent Auto 20.6 % (20-40); Mean Corpuscular HGB Conc 34.2 g/dl (31.0-36.0); Mean Corpuscular Hemoglobin 32.8 pg (27.0-33.0); Mean Platelet Volume 10.4 fL (9.4-12.4); Monocytes Absolute Auto 0.5 X10*3/uL (0.1-1.2); Monocytes Percent Auto 5.9 % (2-11); Neutrophils Absolute Auto 6.4 x10*3/uL (2.0-8.3); Neutrophils Percent Auto 70.7 % (45-73); Platelet Count 217 X10*3/uL (160-400); Red Blood Count 3.99 X10*6/uL (4.60-5.80)
[2024-07-27 18:02] LABS: Alanine Aminotransferase 20 U/L (0-40); Albumin Level 5.1 g/dL (3.5-5.0); Alkaline Phosphatase 82 U/L (39-117); Anion Gap 14 (12-20); Aspartate Amino Transferase 22 U/L (5-37); Bilirubin Total 0.3 mg/dL (0.0-1.0); Blood Urea Nitrogen 17 mg/dL (9-16); Calcium 10.4 mg/dL (8.4-10.2); Carbon Dioxide 29 mmol/L (22-29); Chloride 98 mmol/L (96-108); Creatinine Clr Calc Pharmacy 108.5; Estimated Glomerular Filt Rate > 60; Ethanol < 10 mg/dL; Glucose Random 94 mg/dL (60-115); Potassium 3.6 mmol/L (3.3-5.1); Sodium 137 mmol/L (135-145); Total Protein 8.5 g/dL (6.5-8.0)
[2024-07-27 18:04] LABS: Amphetamine Screen Urine Not Detected (Not Detect); Barbiturates, Urine Not Detected (Not Detect); Benzodiazepines Screen Urine Not Detected (Not Detect); Buprenorphine Scr Positive (Not Detect); Cannabinoid Screen Urine Not Detected (Not Detect); Cocaine Screen Urine Not Detected (Not Detect); Fentanyl, urine Not Detected (Not Detect); Methadone Screen, Urine Not Detected (Not Detect); Opiate Screen Urine Not Detected (Not Detect); Oxycodone Screen Urine Not Detected (Not Detect); Phencyclidine Screen Urine Not Detected (Not Detect)
[2024-07-27 18:05] LABS: Ammonia 35 umol/L (13-55)
--- NOTE | 2024-07-27 18:42 | PC.NURSE ---
patient a&ox3, vss, pt denies SI/HI, denies current drug/etoh use, pt labs previously drawn, has c/o bilateral foot neuropathy, security at bedside to do changeover, call spaulding within reach, will continue to monitor
[2024-07-27 19:17] VITALS: BP 124/88; PULSE 69; RESP 18; TEMP 36.8; O2SAT 96
--- NOTE | 2024-07-27 19:24 | MHC.CARE ---
Pt refused to meet with CARE team, FRANCESCO Souza informed of pt's refusal. CARE team clinician will try at later time if appropriate. Pt denied SI/HI at triage and was d/c from inpt unit earlier today.
--- NOTE | 2024-07-27 21:32 | MHC.CARE ---
T/W spoke to patients mother Nida Mckeon [phone]. Mother reported that she hasn't spoke to patient in months since he was last [address] [facility] for 42 days in [place] back in April of 2024. Mother reported patient has struggled with alcohol addiction for approximately 20 years. Mother reported that patient and his girlfriend of approximately 10 years or so broke up this year which has negatively affected him. Mother reported that patient apparently went missing June 17, 2024 and five days later she found out he was hospitalized at [facility]. 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 She also reported that the maternal side of the family has struggled with alcoholism and the paternal side of the family has mental health hx. Mother reported that patient cut his wrist many years ago, unknown of time frame. Mother is advocating for patient to go to [facility]. Mother reported that patient has a hx of admissions to different facilities; -[facility] back in 2021 and two years prior to that. -[facility] 2024 [facility] -[facility] April 2024 -[facility] in June 2024. -[facility] July 2024.
--- NOTE | 2024-07-27 21:54 | PC.NURSE ---
Per care team, pt will be re-evaluated in the morning.
[2024-07-27 21:55] VITALS: BP 111/66; PULSE 59; RESP 18; TEMP 36.8; O2SAT 98
[2024-07-27] MEDS: Ibuprofen 600 MG TABLET PO (22:07)
[2024-07-28] MEDS: QUEtiapine Fumarate 25 MG TABLET 75 MG PO ×4 (00:53→21:18)
[2024-07-28] MEDS: busPIRone HCl 10 MG TABLET 20 MG PO ×4 (00:53→21:18)
[2024-07-28 00:54] VITALS: BP 111/66
[2024-07-28] MEDS: cloNIDine HCL 0.1 MG TABLET PO ×3 (00:54→21:18)
[2024-07-28] MEDS: traZODone HCL 50 MG TABLET 150 MG PO ×2 (01:04→21:17)
[2024-07-28 06:00] VITALS: BP 140/80; PULSE 66; RESP 16; TEMP 36.7; O2SAT 99
[2024-07-28] MEDS: hydrOXYzine HCL 50 MG TABLET PO ×2 (06:12→15:40)
--- NOTE | 2024-07-28 07:07 | PC.NURSE ---
Assumed care of patient at 0645, patient appears to be sleeping, respirations even and unlabored, no apparent distress noted. Continue plan of care for care re-eval this am
--- NOTE | 2024-07-28 08:16 | PHA.MEDREC ---
Addendum entered by Salty Abreu RPh 07/28/24 08:23: Reviewed by [facility]. Original Note: Pharmacy Consult ? Medication Reconciliation Pharmacy has reviewed the medication reconciliation done by nursing. Claims match med list.
[2024-07-28] MEDS: buPROPion HCl XL 300 MG TAB.ER.24H PO (09:09)
[2024-07-28] MEDS: Buprenorphine/Naloxone 8/2 mg FILM 1 FILM SUBLINGUAL (09:09)
--- NOTE | 2024-07-28 10:03 | PC.NURSE ---
pt agitated this am, frsutrated that he got his morning medications so early and that he is not discharged. This RN educated patient that he will be evaluated by CARE team and then psychiatry. Pt reports he just wants to go home and work. Pt took all am medications without issue
--- NOTE | 2024-07-28 10:58 | PM.PSYCN ---
History of Present Illness Date of Service: 07/28/24 Chief Complaint: bilat ft pain/balance off-doesn't want wheelchair Reason for Consult: ? need for psych admission Discussed with referring provider: Yes Sources of Information: patient interviewed and chart reviewed HPI Narrative: per 07/27 ED note: 49-year-old male with a history of alcohol use disorder, opiate use disorder in remission on Suboxone, depression, HTN, possibly TBI, HLD, presents with confusion. Patient states he was just released from [facility] yesterday, he states he was standing at a gas station ?I was standing in the rain, I realize it had been 2 hours, I did not know what I was supposed to be doing?. Patient states he feels that he left [facility] too soon, he states ?they kicked me out, they have done this before because of my insurance?. Patient denies SI, HI, use of illicit substances or alcohol. Patient states he has yet to receive his medication today he is requesting to receive his medication. 07/28: case discussed with CARE team staff adeline breaux, chart reviewed. pt interviewed. on interview, pt was able to identify the year and month, but not the day or date. he was able to recall the day and date several minutes after being informed of them. he was able to identify the place adequately. [facility] in his opinion, and he felt overwhelmed and confused trying to navigate obtaining his scripts from the pharmacy and getting to the custodial to which he had been referred ([facility], [facility], in [place], per his recollection). he was experiencing foot pain from being up and about most of the day and reported he attempted to get to [facility] for medication for his foot pain. he is not sure how, but he ended up at [facility] instead. 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 he does not know how we can help him here otherwise, and he does not believe he needs a psychiatric admission. he reports his mood is good, since he got his medications this morning, and he denies SI/HI/AVH. he is agreeable to referral to case mgmt. Past Psychiatric History: see CARE team michael for further [facility] Medical History (Updated 07/28/24 @ 11:16 by Nic Wilkes MD) Mood disorder Depressive disorder Substance abuse Insomnia Depression Anxiety Head injury Neuropathy Surgical History (Updated 07/27/24 @ 18:35 by Neris Cole RN) S/P appendectomy Substance History: severe AUD see CARE team eval for further Hx Diagnostics Vital Signs (24Hr): Vital Signs - 24 hr 07/27/24 17:04 07/27/24 19:17 07/27/24 21:55 Temperature 98.5 F 98.3 F 98.3 F Pulse Rate 64 69 59 Respiratory Rate 18 18 18 Blood Pressure 140/93 H 124/88 111/66 Pulse Oximetry 99 96 98 Oxygen Delivery Method Room Air Room Air Room Air 07/28/24 00:54 07/28/24 06:00 Temperature 98.0 F Pulse Rate 66 Respiratory Rate 16 Blood Pressure 111/66 140/80 H Pulse Oximetry 99 Oxygen Delivery Method Room Air BMI result Body Mass Index 26.9 Labs 07/27/24 17:30 07/27/24 17:30 Labs: Laboratory Results - last 48 hr 07/27/24 17:30 WBC 9.0 RBC 3.99 L Hgb 13.1 L Hct 38.3 L MCV 96.0 MCH 32.8 MCHC 34.2 RDW 14.0 Plt Count 217 D MPV 10.4 Immature Gran % (Auto) 0.3 Neut % (Auto) 70.7 Lymph % (Auto) 20.6 [place] % (Auto) 5.9 Eos % (Auto) 1.6 Baso % (Auto) 0.9 Lymph # (Auto) 1.9 [place] # (Auto) 0.5 Eos # (Auto) 0.1 Baso # (Auto) 0.1 Abs Immat Gran (auto) 0.03 Absolute Neuts (auto) 6.4 Absolute Nucleated RBC 0.000 Nucleated RBC % (auto) 0.0 Sodium 137 Potassium 3.6 Chloride 98 Carbon Dioxide 29 Anion Gap 14 BUN 17 H Creatinine 0.85 Estim Creat Clear Calc 108.5 Estimated GFR > 60 Random Glucose 94 Calcium 10.4 H Total Bilirubin 0.3 AST 22 ALT 20 Alkaline Phosphatase 82 Ammonia 35 Total Protein 8.5 H Albumin 5.1 H Urine Opiates Screen Not Detected Ur Buprenorphine Scrn Positive H Ur Oxycodone Screen Not Detected Urine Methadone Screen Not Detected Urine Fentanyl Screen Not Detected Ur Barbiturates Screen Not Detected Ur Phencyclidine Scrn Not Detected Ur Amphetamines Screen Not Detected U Benzodiazepines Scrn Not Detected Urine Cocaine Screen Not Detected U Marijuana (THC) Screen Not Detected Ethyl Alcohol < 10 Mental Status Exam Mental Status Exam Narrative: adequately groomed, wearing [facility]. lying on couch in communal area of POD. cooperative. speech nml rate, incr amount, nml latency, nml loudness. some mumbling. thoughts logical, circumstantial/wandering. no delusions or paranoia evident. affect constricted, normo-intense, non-labile. mood very good. denies SI/HI/AVH. cognition grossly impaired to conversational testing. Medications Medications Current Medications Buprenorphine/Naloxone (Buprenorphine/Naloxone 8/2 Mg Film) 1 film SUBLINGUAL DAILY [facility] Last Admin: 07/28/24 09:09 Dose: 1 film Bupropion HCl (Bupropion Hcl Xl 300 Mg Tab.Er.24h) 300 mg PO DAILY [facility] Last Admin: 07/28/24 09:09 Dose: 300 mg Buspirone HCl (Buspirone Hcl 10 Mg Tablet) 20 mg PO TID [facility] Last Admin: 07/28/24 09:55 Dose: 20 mg Clonidine HCl (Clonidine Hcl 0.1 Mg Tablet) 0.1 mg PO BID [facility]; Protocol Last Admin: 07/28/24 09:55 Dose: 0.1 mg Hydroxyzine HCl (Hydroxyzine Hcl 50 Mg Tablet) 50 mg PO Q4H PRN PRN Reason: Anxiety Last Admin: 07/28/24 06:12 Dose: 50 mg Quetiapine Fumarate (Quetiapine Fumarate 25 Mg Tablet) 75 mg PO TID [facility] Last Admin: 07/28/24 09:55 Dose: 75 mg Trazodone HCl (Trazodone Hcl 50 Mg Tablet) 150 mg PO BEDTIME [facility] Last Admin: 07/28/24 01:04 Dose: 150 mg Allergies Allergies Allergy/AdvReac Type Severity Reaction Status Date / Time No Known Allergies Allergy Verified 07/27/24 17:10 Assessment & Plan Assessment & Plan (1) Cognitive disorder: Status: Acute Code(s): F09 - Unspecified mental disorder due to known physiological condition (2) Alcohol use disorder, severe, dependence: Status: Acute Code(s): F10.20 - Alcohol dependence, uncomplicated Plan pt does not want psych admission and is not suitable for psych admission, as his cognitive deficits are likely related to his alcohol use disorder and would not be amenable to treatment on an inpatient psych unit. his deficits are likely largely irreversible; pt may require alf care moving forward. MoCA should be completed to establish cognitive baseline. referral for case mgmt is warranted. Total time managing care of this patient today _55___ minutes.
--- NOTE | 2024-07-28 11:49 | MHC.CM.ED ---
Received case management consult from Dr Cheney at recommendation of Care Team. Per Dr Wilkes, patient has capacity to make his own decisions. Spoke with Estela from Care Team. Patient is not appropriate for CM consult at this time. Outpatient resources forms provided to Estela. CM consult deferred at this time.
--- NOTE | 2024-07-28 13:18 | MHC.CARE ---
Pt will be referred to [facility] as they have 1 male bed.
[2024-07-28 18:04] VITALS: BP 109/74; PULSE 66; RESP 18; TEMP 37.1; O2SAT 98
--- NOTE | 2024-07-28 19:13 | PC.NURSE ---
patient appears to remain relaxed, housed in rear communal area presently and asking peer about prev patients from other facility. appears in no distress.
[2024-07-28 21:18] VITALS: BP 109/74
[2024-07-28] MEDS: Melatonin 3 MG TABLET 6 MG PO (21:18)
--- NOTE | 2024-07-28 23:53 | MHC.CARE ---
Pt was denied from [facility] on 07/28/24. Pt was previously seen by Dr. Wilkes from psych consult who indicated that he was not appropriate for [facility] however, there is no safe discharge plan at this time and pt does not appear appropriate to discharge to the community as he is homeless and has no protective factors in the community. Attempted to reach out to collaterals however, unable to be reached so pt will remain in the ED over night and we will re consult with psych to ensure he still does not meet criteria given the lack of safe discharge and not being appropriate for [facility] and disposition will be formed once re seen by psych consult and further follow up will occur moving forward. Dr. Tovar re ordered a consult at this time and first shift care team staff was informed of the plan.
[2024-07-29] MEDS: hydrOXYzine HCL 50 MG TABLET PO ×4 (03:51→21:01)
[2024-07-29 06:00] VITALS: RESP 16
[2024-07-29 08:44] VITALS: BP 104/72; PULSE 76; RESP 18; TEMP 36.8; O2SAT 99
--- NOTE | 2024-07-29 08:59 | MHC.CARE ---
Patient will need a MOCA on Wednesday. ED attending aware. He was declined by [facility].
[2024-07-29 09:13] VITALS: BP 104/72
[2024-07-29] MEDS: QUEtiapine Fumarate 25 MG TABLET 75 MG PO ×3 (09:13→22:09)
[2024-07-29] MEDS: cloNIDine HCL 0.1 MG TABLET PO ×2 (09:13→22:06)
[2024-07-29] MEDS: Buprenorphine/Naloxone 8/2 mg FILM 1 FILM SUBLINGUAL (09:13)
[2024-07-29] MEDS: busPIRone HCl 10 MG TABLET 20 MG PO ×3 (09:14→22:05)
[2024-07-29] MEDS: buPROPion HCl XL 300 MG TAB.ER.24H PO (11:23)
[2024-07-29 14:54] VITALS: BP 111/74; PULSE 63; RESP 20; TEMP 36.7; O2SAT 99
--- NOTE | 2024-07-29 17:38 | PC.NURSE ---
Pt spent time reading from personal notes he's been taking and asked RN to scribe his thoughts in a legible manor. Pt now has that dictated sheet. Has been calm and cooperative throughout the day. Eating and performing ADLs without diff.
[2024-07-29 22:06] VITALS: BP 111/74
[2024-07-29] MEDS: traZODone HCL 50 MG TABLET 150 MG PO (22:06)
[2024-07-29] MEDS: Melatonin 3 MG TABLET 6 MG PO (22:17)
[2024-07-30] MEDS: hydrOXYzine HCL 50 MG TABLET PO ×5 (02:04→22:07)
[2024-07-30 06:12] VITALS: BP 126/83; PULSE 84; RESP 16; TEMP 36.3; O2SAT 97
[2024-07-30 07:50] VITALS: BP 127/87; PULSE 72; RESP 20; TEMP 36.9; O2SAT 97
[2024-07-30] MEDS: Buprenorphine/Naloxone 8/2 mg FILM 1 FILM SUBLINGUAL (08:45)
[2024-07-30] MEDS: QUEtiapine Fumarate 25 MG TABLET 75 MG PO ×3 (08:45→22:07)
[2024-07-30] MEDS: busPIRone HCl 10 MG TABLET 20 MG PO ×3 (08:45→22:07)
[2024-07-30] MEDS: cloNIDine HCL 0.1 MG TABLET PO ×2 (08:46→22:08)
[2024-07-30] MEDS: buPROPion HCl XL 300 MG TAB.ER.24H PO (09:35)
[2024-07-30 16:47] VITALS: BP 120/77; PULSE 63; RESP 16; TEMP 36.8; O2SAT 100
[2024-07-30 22:08] VITALS: BP 120/77
[2024-07-30] MEDS: Melatonin 3 MG TABLET 6 MG PO (22:08)
[2024-07-30] MEDS: traZODone HCL 50 MG TABLET 150 MG PO (22:08)
--- NOTE | 2024-07-31 05:29 | PC.NURSE ---
late entry-upon arrival to unit today client remained asleep, apparently having requested and rec'd hydroxyzine about 1800. patient requested this again and available melatonin upon awakening and therefter adjourned to rest. patient thereafter slept uninterruptedly the majority of the night.
[2024-07-31] MEDS: hydrOXYzine HCL 50 MG TABLET PO ×4 (06:20→20:46)
[2024-07-31] MEDS: QUEtiapine Fumarate 25 MG TABLET 75 MG PO ×3 (08:59→20:36)
[2024-07-31] MEDS: busPIRone HCl 10 MG TABLET 20 MG PO ×3 (08:59→20:35)
[2024-07-31] MEDS: Buprenorphine/Naloxone 8/2 mg FILM 1 FILM SUBLINGUAL (09:00)
[2024-07-31] MEDS: cloNIDine HCL 0.1 MG TABLET PO ×2 (09:00→20:36)
[2024-07-31] MEDS: buPROPion HCl XL 300 MG TAB.ER.24H PO (10:32)
--- NOTE | 2024-07-31 11:00 | PC.NURSE ---
patient has been resting quietly through out the morning, patient ambulates with steady gait amongst the unit, patient will initiate conversation with staff, patient is polite and respectful of others on unit.
[2024-07-31 11:03] VITALS: BP 117/79; PULSE 78; RESP 16; TEMP 37.2; O2SAT 99
--- NOTE | 2024-07-31 13:09 | MHC.CM.ED ---
Addendum entered by Luda Hillman 08/01/24 08:21: Per Bessie, OT, will attempt moca morning of 08/01. Original Note: Patient remains in ER pod. MOCA eval requested by OT. Per OT, pod is covered by OT. OT eval requesting for MOCA. Continue to monitor for d/c needs.
[2024-07-31] MEDS: Thiamine HCL 100 MG TABLET PO (13:31)
[2024-07-31 13:36] VITALS: BP 128/82; PULSE 61
[2024-07-31 13:37] VITALS: BP 114/66; BP 130/75; PULSE 78; PULSE 88
--- NOTE | 2024-07-31 14:04 | PM.PSYCN ---
History of Present Illness Date of Service: 07/31/2024 Chief Complaint: bilat ft pain/balance off-doesn't want wheelchair Discussed with referring provider: Yes Sources of Information: patient interviewed, chart reviewed and crisis/core team assessment reviewed HPI Narrative: Mr. Mckeon is a 49 year-old male who self presented (unclear how he got here) but was reporting that he was discharged from [facility], told his insurance would not cover it anymore. He was noted to be very unsteady on his feet. He reported polyneuropathy. He was also noted to be confused in terms of not being able to give much details about recent events. He repeats he was in a gas station and did not know how long he had been there, and kept going to the same place. Utox was negative. Including BAL. Pt has been seen by care team and psych on 07/28/2024. Collateral information has been gathered from his mother who does not live with him but reports he has been more confused and poor memory. concern at this point seems to be more related to his ability to care for himself given cognitive/memory issues which appear to be in past few months. Pt seen in the ED. He reports he knows he is at [facility]. He is not sure how long he has been here and reports he is not sure how he got here. He is also not sure why he is still here, but does not know otherwise what he would do if he leaves the hospital. He repeats a number of times that he has to find a job. 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 He has some awareness that he is having difficulty retaining information, but yet still thinks he can function on his own. He does recall that he has been in this hospital in the past (he was in fact in January of this year medically admitted for alcohol withdrawal) but he is confused as to when this was. He thinks he was transferred from [place] here, which is not the case. He tells me he lost his job and his GF but does not know when all of these happened. He is noted to have some unsteady gait, wide gait. He reports feeling like room spinning. On exam he does have horizontal nystagmus and he also reports blurry vision. Past Psychiatric History: see CARE team michael for further [facility] Medical History (Updated 07/31/24 @ 00:00 by Background Daemon) Mood disorder Depressive disorder Substance abuse Insomnia Depression Anxiety Head injury Neuropathy Surgical History (Updated 07/27/24 @ 18:35 by Neris Cole RN) S/P appendectomy Diagnostics Vital Signs (24Hr): Vital Signs - 24 hr 07/30/24 16:47 07/30/24 22:08 07/31/24 11:03 Temperature 98.3 F 98.9 F Pulse Rate 63 78 Respiratory Rate 16 16 Blood Pressure 120/77 120/77 117/79 Pulse Oximetry 100 99 Oxygen Delivery Method Room Air Room Air 07/31/24 13:36 07/31/24 13:37 07/31/24 13:37 Temperature Pulse Rate 61 78 88 Respiratory Rate Blood Pressure 128/82 114/66 130/75 Pulse Oximetry Oxygen Delivery Method BMI result Body Mass Index 26.9 Labs 07/27/24 17:30 07/27/24 17:30 Mental Status Exam Mental Status Exam Narrative: Appearance: wearing hospital gown, fair hygiene, in NAD Behavior: somewhat guarded Psychomotor: no tremors, gait with wide stand, unsteady gait at times. Speech: mostly clear, regular rate/rhythm/volume, spontaneous TP: repetitive, wanting to find a job, not knowing why he is here TC: wanting to find a job, not knowing why he is here Mood: good, anxious sometimes' Affect: constricted SI: denies HI: denies VH/AH: none Delusions: none Insight/judgment: impaired x 2. Memory/cog: alert, oriented to place, month and year, not to situation. Not able to retain much information of recent events including why he continues to be here. Medications Medications Current Medications Buprenorphine/Naloxone (Buprenorphine/Naloxone 8/2 Mg Film) 1 film SUBLINGUAL DAILY [facility] Last Admin: 07/31/24 09:00 Dose: 1 film Bupropion HCl (Bupropion Hcl Xl 300 Mg Tab.Er.24h) 300 mg PO DAILY [facility] Last Admin: 07/31/24 10:32 Dose: 300 mg Buspirone HCl (Buspirone Hcl 10 Mg Tablet) 20 mg PO TID [facility] Last Admin: 07/31/24 08:59 Dose: 20 mg Clonidine HCl (Clonidine Hcl 0.1 Mg Tablet) 0.1 mg PO BID [facility]; Protocol Last Admin: 07/31/24 09:00 Dose: 0.1 mg Hydroxyzine HCl (Hydroxyzine Hcl 50 Mg Tablet) 50 mg PO Q4H PRN PRN Reason: Anxiety Last Admin: 07/31/24 12:34 Dose: 50 mg Melatonin (Melatonin 3 Mg Tablet) 6 mg PO BEDTIME PRN PRN Reason: Insomnia Last Admin: 07/30/24 22:08 Dose: 6 mg Quetiapine Fumarate (Quetiapine Fumarate 25 Mg Tablet) 75 mg PO TID [facility] Last Admin: 07/31/24 08:59 Dose: 75 mg Thiamine HCl (Thiamine Hcl 100 Mg Tablet) 100 mg PO DAILY [facility] Last Admin: 07/31/24 13:31 Dose: 100 mg Trazodone HCl (Trazodone Hcl 50 Mg Tablet) 150 mg PO BEDTIME [facility] Last Admin: 07/30/24 22:08 Dose: 150 mg Allergies Allergies Allergy/AdvReac Type Severity Reaction Status Date / Time No Known Allergies Allergy Verified 07/27/24 17:10 Assessment & Plan Assessment & Plan (1) Cognitive disorder: Status: Acute Code(s): F09 - Unspecified mental disorder due to known physiological condition Plan Mr. Mckeon is a 49 year-old male w/ hx of alcohol use. He self presented, unclear how he got here. He reported he was recently discharged from [facility] and was standing at gas station and did not know what to do. He appears to have severe difficulty remembering more recent events, especially his orientation to situation. Collateral information is limited as it comes from his mother but she does not live with him. She reports marked impairment in cognition and memory in recent weeks. On exam he does present with horizontal nystagmus, unsteady, wide broad gait, and confusion. Other supporting symptoms include peripheral neuropathy. Differential includes from more acute and possible reversible causes including wernickle's, to progression to Korsokoff. Benefit of ruling out wernicke's with high doses of thiamine outweigh any risks at this point, if ineffective then more careful assessment including MRI to look for lesions in mamillary bodies r/o alcohol related dementia or other etiologies. discussed with ED attending starting Thiamine 500mg IV TID x 2 days, follow by 250mg IM or IV daily for 5 days. Total time managing care of this patient today ____ minutes.
--- NOTE | 2024-07-31 14:18 | MHC.CARE ---
Pt seen by Dorita Johnson who is ordering an MRI and MOCA for Pt to determine level of functioning and appropriate disposition.
--- NOTE | 2024-07-31 14:36 | PC.NURSE ---
patient escorted to ct scan with security and tech
--- NOTE | 2024-07-31 15:05 | PC.NURSE ---
patient to mri
[2024-07-31 15:39] LABS: TSH reflex Free T4 3.49 uIU/mL (0.32-4.0)
--- NOTE | 2024-07-31 15:45 | PC.NURSE ---
patient returned from mri
[2024-07-31 15:52] LABS: Vitamin B12 341 pg/mL (200-900)
[2024-07-31 20:34] VITALS: BP 146/90; PULSE 60; RESP 18; TEMP 37.4; O2SAT 98
[2024-07-31] MEDS: traZODone HCL 50 MG TABLET 150 MG PO (20:35)
[2024-07-31 20:36] VITALS: BP 146/90
--- NOTE | 2024-07-31 20:52 | PC.NURSE ---
Patient medicated per MAR including Hydroxyzine 50 mg PO PRN. Patient currently resting on bed, offers no complaints at this time. CIWA assessment completed, score 1, no s/s of alcohol withdrawal. Plan of care ongoing.
--- NOTE | 2024-07-31 23:40 | PC.NURSE ---
Nurse to nurse report given to Lola ED RN. Patient pending admission for Thiamine via IV. Plan to draw labs and administer Thiamine IV at ED with 1:1 sitter at bedside.
[2024-08-01] VITALS (7 sets, daily range): BP systolic 97–140; BP diastolic 65–88; PULSE 63–70; RESP 16–20; TEMP 36.4–36.8; O2SAT 96–98
[2024-08-01 00:39] LABS: MANUAL DIFF FLAG NO
[2024-08-01 00:40] LABS: Basophils Percent Auto 0.7 % (0-2); Eosinophils Absolute Auto 0.2 X10*3/uL (0.0-0.4); Eosinophils Percent Auto 2.9 % (0-4); Hematocrit 35.6 % (42.0-52.0); Hemoglobin 12.4 g/dl (14.0-18.0); Imm Gran Abs Auto 0.01 X10*3/uL (0.00-0.03); Imm Gran Pct Auto 0.2 % (0.0-0.4); Lymphocytes Absolute Auto 1.9 X10*3/uL (1.2-4.9); Mean Corpuscular HGB Conc 34.8 g/dl (31.0-36.0); Mean Corpuscular Volume 94.7 fL (80.0-98.0); Mean Platelet Volume 10.1 fL (9.4-12.4); Monocytes Absolute Auto 0.6 X10*3/uL (0.1-1.2); Monocytes Percent Auto 11.2 % (2-11); Neutrophils Absolute Auto 2.7 x10*3/uL (2.0-8.3); Platelet Count 199 X10*3/uL (160-400); Red Blood Count 3.76 X10*6/uL (4.60-5.80); Red Cell Distribution Width 13.8 % (11.0-16.0); White Blood Count 5.5 X10*3/uL (4.8-10.8)
[2024-08-01] MEDS: Thiamine HCL 500 MG in 0.9 % Sodium Chloride 100 ML 210 MG IV ×3 (00:40→15:12)
[2024-08-01 00:48] LABS: Ammonia 56 umol/L (13-55)
[2024-08-01 00:56] LABS: Alanine Aminotransferase 19 U/L (0-40); Albumin Level 4.2 g/dL (3.5-5.0); Alkaline Phosphatase 55 U/L (39-117); Anion Gap 13 (12-20); Aspartate Amino Transferase 20 U/L (5-37); Bilirubin Direct < 0.2 mg/dL (0.0-0.5); Bilirubin Total 0.2 mg/dL (0.0-1.0); Blood Urea Nitrogen 22 mg/dL (9-16); Calcium 9.4 mg/dL (8.4-10.2); Carbon Dioxide 29 mmol/L (22-29); Chloride 100 mmol/L (96-108); Creatinine Clr Calc Pharmacy 89.5; Estimated Glomerular Filt Rate > 60; Glucose Random 99 mg/dL (60-115); Magnesium 2.2 mg/dL (1.6-2.6); Potassium 3.8 mmol/L (3.3-5.1); Sodium 138 mmol/L (135-145); Total Protein 6.9 g/dL (6.5-8.0)
[2024-08-01] MEDS: hydrOXYzine HCL 50 MG TABLET PO ×3 (02:53→21:41)
--- NOTE | 2024-08-01 03:08 | PC.NURSE ---
Pt medicated to NOV per request d/t anxiety
--- NOTE | 2024-08-01 03:21 | MHC.EDTECH ---
belongings in locker 7 in pod
--- NOTE | 2024-08-01 03:26 | HO.PM.IMCN ---
History of Present Illness Data of Consult Service Date: 08/01/24 Requesting physician: Rula Jin [facility] Reason for consult: ?Wernicke's encephalopathy Baltazar Mckeon is a 49 years old man past medical history significant for ?TBI, substance abuse on Suboxone, alcohol use disorder, depression, anxiety, feet neuropathy and insomnia presents to the ED 4 days ago with confusion. On arrival to the ED he was stating that he was standing at a gas station and said I was standing in the rain, I realized it has been 2 hours and I did not know what I was supposed to be doing . He was recently discharged from [facility] and felt that he was released to [facility] and feels this is because of his insurance. I was asked by ED provider to admit patient a psychiatric provider felt patient might be having Wernicke's encephalopathy. He did not report any recent alcohol consumption. He knows he has been in the ED BH for the last 3-4 days. According to psychiatric notes the patient was noted to have unsteady gait and nystagmus. He has been also reported that he has been having memory and cognitive issues. He was able to recall the names of all his medications: Suboxone, bupropion, buspirone, clonidine, hydroxyzine, Seroquel and trazodone. Patient stated that the last time he drank was about 2 weeks ago. He denied any headache, acute visual disturbances, dizziness, nausea, vomiting, chest pain, shortness of breath or abdominal pain. He states that he has painful soles which he attributes to neuropathy caused by alcohol abuse and commented that he used to take gabapentin for this. Vital sign has been stable. Blood workup including CBC, CMP, vitamin B12, folate and TSH are unremarkable. Ammonia is minimally elevated, 56. Urine drug screen is positive for buprenorphine and ETOH level was < 10. Head CT scan showed no acute intracranial abnormalities. Brain MRI was performed but results are still pending. Review of Systems Review of Systems: All 12 systems were reviewed and normal except as noted in HPI. [facility] Medical History (Updated 08/01/24 @ 00:00 by Background Daemon) Mood disorder Depressive disorder Substance abuse Insomnia Depression Anxiety Head injury Neuropathy Surgical History (Updated 07/27/24 @ 18:35 by Neris Cole RN) S/P appendectomy Social History Household Members: Unknown / Unable to assess Housing: Unknown / Unable to assess Comment: 1:1 sitter Patient Tobacco Use Status: Tobacco use Unknown Smoked in Last 30 Days: Yes Use of substances other than those prescribed or required for medical reasons: No Advance Directives: No Advance Directives Information Provided: No Advance Directives Date on File: 01/07/24 Do you have a plan to hurt others: No Plan service: No Meds Allergies Allergy/AdvReac Type Severity Reaction Status Date / Time No Known Allergies Allergy Verified 07/27/24 17:10 Active Medications: Current Medications Buprenorphine/Naloxone (Buprenorphine/Naloxone 8/2 Mg Film) 1 film SUBLINGUAL DAILY [facility] Last Admin: 07/31/24 09:00 Dose: 1 film Bupropion HCl (Bupropion Hcl Xl 300 Mg Tab.Er.24h) 300 mg PO DAILY [facility] Last Admin: 07/31/24 10:32 Dose: 300 mg Buspirone HCl (Buspirone Hcl 10 Mg Tablet) 20 mg PO TID [facility] Last Admin: 07/31/24 20:35 Dose: 20 mg Clonidine HCl (Clonidine Hcl 0.1 Mg Tablet) 0.1 mg PO BID [facility]; Protocol Last Admin: 07/31/24 20:36 Dose: 0.1 mg Hydroxyzine HCl (Hydroxyzine Hcl 50 Mg Tablet) 50 mg PO Q4H PRN PRN Reason: Anxiety Last Admin: 08/01/24 02:53 Dose: 50 mg Melatonin (Melatonin 3 Mg Tablet) 6 mg PO BEDTIME PRN PRN Reason: Insomnia Last Admin: 07/30/24 22:08 Dose: 6 mg Quetiapine Fumarate (Quetiapine Fumarate 25 Mg Tablet) 75 mg PO TID [facility] Last Admin: 07/31/24 20:36 Dose: 75 mg Thiamine HCl (Thiamine Hcl 100 Mg Tablet) 100 mg PO DAILY [facility] Last Admin: 07/31/24 13:31 Dose: 100 mg Trazodone HCl (Trazodone Hcl 50 Mg Tablet) 150 mg PO BEDTIME [facility] Last Admin: 07/31/24 20:35 Dose: 150 mg Home Medications ?Medication ?Instructions ?Recorded ?Confirmed ?Last Taken ?Type buprenorphine 8 mg-naloxone 2 mg 1 film sublingual DAILY 01/07/24 07/27/24 07/27/24 08:00 History sublingual film hydroxyzine pamoate 50 mg capsule 50 mg PO Q4H PRN Anxiety 01/07/24 07/27/24 Unknown History bupropion HCl 300 mg 24 hr tablet, 300 mg PO DAILY 07/27/24 07/27/24 07/27/24 08:00 History extended release buspirone 10 mg tablet 20 mg PO TID 07/27/24 07/27/24 07/27/24 14:00 History clonidine HCl 0.1 mg tablet 0.1 mg PO BID 07/27/24 07/27/24 07/27/24 08:00 History quetiapine 25 mg tablet 75 mg PO TID 07/27/24 07/27/24 07/27/24 14:00 History trazodone 150 mg tablet 150 mg PO BEDTIME 07/27/24 07/27/24 Unknown History Physical Exam Vital Signs and Narrative: Vital Signs: Last Vital Signs Temp 98.0 F 08/01/24 01:05 Pulse 66 08/01/24 01:05 Resp 16 08/01/24 01:05 BP 118/77 08/01/24 01:05 Pulse Ox 98 08/01/24 01:05 O2 Del Method Room Air 08/01/24 01:05 BMI result Body Mass Index 26.9 Constitutional - Awake and Alert, No apparent distress. Pleasant. Cooperative. HEENT - PERRLA, EOMI. Normal sclerae. Heart - S1S2, RRR, No murmurs Lungs - Normal lung expansion, Normal respiratory effort, No respiratory distress, CTA bilaterally Abdomen - Nontender. Extremities - no calf tenderness bilaterally, no swelling Musculoskeletal - Normal inspection, normal ROM Skin - Warm/Dry. No jaundice. Neurological - Alert & oriented x3, CN III-XII in tact, 5/5 strength BUE and BLE. Decreased sensation to the lower extremities symmetrically. Nystagmus was not appreciated. Psychological - Depressed affect Results Labs 08/01/24 00:33 08/01/24 00:33 Labs: Laboratory Results - last 24 hr 07/31/24 08/01/24 14:52 00:33 MCV 94.7 MCH 33.0 MCHC 34.8 RDW 13.8 Plt Count 199 MPV 10.1 Immature Gran % (Auto) 0.2 Neut % (Auto) 50.0 Lymph % (Auto) 35.0 Rutherford % (Auto) 11.2 H Eos % (Auto) 2.9 Baso % (Auto) 0.7 Lymph # (Auto) 1.9 Rutherford # (Auto) 0.6 Eos # (Auto) 0.2 Baso # (Auto) 0.0 Abs Immat Gran (auto) 0.01 Absolute Neuts (auto) 2.7 Absolute Nucleated RBC 0.000 Nucleated RBC % (auto) 0.0 Anion Gap 13 Estim Creat Clear Calc 89.5 Estimated GFR > 60 Random Glucose 99 Calcium 9.4 D Magnesium 2.2 Total Bilirubin 0.2 Direct Bilirubin < 0.2 AST 20 ALT 19 Alkaline Phosphatase 55 Ammonia 56 H Total Protein 6.9 Albumin 4.2 Vitamin B12 341 Folate 14.0 TSH 3.49 Imaging Radiologist's Impressions: Impressions Head CT 07/31/24 14:28 IMPRESSION: No acute intracranial pathology. Electronically signed by: Rickie Mcpherson MD 07/31/2024 04:32 PM EST Assessment and Plan (1) Cognitive disorder: Status: Acute Plan Baltazar Mckeon is a 49 y/o man presents with: Memory issues. Cause is unclear to me. 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 There is a concerned of Wernicke's encephalopathy as nystagmus and ataxia was noted by psychiatric service. Will recommend to follow brain MRI results and to obtain neurology consult. Agree with high doses of thiamine.
--- NOTE | 2024-08-01 06:00 | ECG_ITS ---
Test Reason : CHECK QT Blood Pressure : / mmHG Vent. Rate : 058 BPM Atrial Rate : 058 BPM P-R Int : 178 ms QRS Dur : 094 ms QT Int : 446 ms P-R-T Axes : 042 020 029 degrees QTc Int : 437 ms Sinus bradycardia Otherwise normal ECG When compared with ECG of 07-JAN-2024 00:36, No significant change was found Referred By: Diana Balderrama Electronically Signed By:BRENNAN PAINTING
--- NOTE | 2024-08-01 07:09 | PC.NURSE ---
Care of Pt assumed at change of shift. Pt is currently resting comfortably with eyes closed. Awaiting MRI results and neuro consult.
--- NOTE | 2024-08-01 07:23 | PC.NURSE ---
Pt assigned new location within ED and subsequently new RN. RN to RN report completed and care relinquished.
[2024-08-01 08:24] LABS: HIV AB/AG Nonreactive (Nonreactive); HIV Num 1 0.08 S/CO (0.00-0.99)
[2024-08-01] MEDS: busPIRone HCl 10 MG TABLET 20 MG PO ×3 (09:53→21:40)
[2024-08-01] MEDS: cloNIDine HCL 0.1 MG TABLET PO ×2 (09:54→21:41)
[2024-08-01] MEDS: Buprenorphine/Naloxone 8/2 mg FILM 1 FILM SUBLINGUAL (09:56)
[2024-08-01] MEDS: QUEtiapine Fumarate 25 MG TABLET 75 MG PO ×3 (09:56→21:41)
[2024-08-01] MEDS: buPROPion HCl XL 300 MG TAB.ER.24H PO (09:57)
--- NOTE | 2024-08-01 13:08 | P.CNNE_ITS ---
History of Present Illness Data of Consult Service Date: 08/01/24 Primary Care Provider: Unknown Physician HPI Reason for consult: Altered mental status This is a 49 years old man past medical history of ?TBI, substance abuse on Suboxone, alcohol use disorder, depression, anxiety, neuropathy and insomnia presented to the ED 4 days ago with confusion. He said I was standing in the rain, I realized it has been 2 hours and I did not know what I was supposed to be doing . He was recently discharged from [facility] and felt that he [facility] and feels this is because of his insurance. He did not report any recent alcohol consumption. According to psychiatric notes the patient was noted to have unsteady gait and nystagmus. He has been also reported that he has been having memory and cognitive issues. He was able to recall the names of all his medications: Suboxone, bupropion, buspirone, clonidine, hydroxyzine, Seroquel and trazodone. Patient stated that the last time he drank was about 2 weeks ago. He denied any headache, acute visual disturbances, dizziness, nausea, vomiting, chest pain, shortness of breath or abdominal pain. He states that he has painful soles which he attributes to neuropathy caused by alcohol abuse and commented that he used to take gabapentin for this. MRI brain is negative PMFSH Past Medical History Medical History (Updated 08/01/24 @ 00:00 by Debbie Amato) Mood disorder Depressive disorder Substance abuse Insomnia Depression Anxiety Head injury Neuropathy Surgical History Surgical History (Updated 07/27/24 @ 18:35 by Neris Cole RN) S/P appendectomy Social History Social History Household Members: Unknown / Unable to assess Housing: Unknown / Unable to assess Comment: 1:1 sitter Patient Tobacco Use Status: Tobacco use Unknown Smoked in Last 30 Days: Yes Use of substances other than those prescribed or required for medical reasons: No Advance Directives: No Advance Directives Information Provided: No Advance Directives Date on File: 01/07/24 Do you have a plan to hurt others: No Plan service: No Meds Allergies Allergy/AdvReac Type Severity Reaction Status Date / Time No Known Allergies Allergy Verified 07/27/24 17:10 Active Medications: Current Medications Buprenorphine/Naloxone (Buprenorphine/Naloxone 8/2 Mg Film) 1 film SUBLINGUAL DAILY [facility] Last Admin: 08/01/24 09:56 Dose: 1 film Bupropion HCl (Bupropion Hcl Xl 300 Mg Tab.Er.24h) 300 mg PO DAILY [facility] Last Admin: 08/01/24 09:57 Dose: 300 mg Buspirone HCl (Buspirone Hcl 10 Mg Tablet) 20 mg PO TID [facility]PLAC[facility] BY [facility] Last Admin: 08/01/24 09:53 Dose: 20 mg Clonidine HCl (Clonidine Hcl 0.1 Mg Tablet) 0.1 mg PO BID REPL[facility]ED BY [facility]; Protocol Last Admin: 08/01/24 09:54 Dose: 0.1 mg Hydroxyzine HCl (Hydroxyzine Hcl 50 Mg Tablet) 50 mg PO Q4H PRN PRN Reason: Anxiety Last Admin: 08/01/24 02:53 Dose: 50 mg Thiamine HCl 500 mg/ Sodium (Chloride) 105 mls @ 210 mls/hr IV TID REPLACED BY [facility] Stop: 08/02/24 15:29 Last Admin: 08/01/24 09:56 Dose: 210 mls/hr Thiamine HCl 250 mg/ Sodium (Chloride) 102.5 mls @ 204 mls/hr IV DAILY [facility]PL[facility]ED BY [facility] Stop: 08/07/24 09:31 Melatonin (Melatonin 3 Mg Tablet) 6 mg PO BEDTIME PRN PRN Reason: Insomnia Last Admin: 07/30/24 22:08 Dose: 6 mg Quetiapine Fumarate (Quetiapine Fumarate 25 Mg Tablet) 75 mg PO TID REPLACED BY [facility] Last Admin: 08/01/24 09:56 Dose: 75 mg Trazodone HCl (Trazodone Hcl 50 Mg Tablet) 150 mg PO BEDTIME REPLACED BY [facility] Last Admin: 07/31/24 20:35 Dose: 150 mg Home Medications ?Medication ?Instructions ?Recorded ?Confirmed ?Last Taken ?Type buprenorphine 8 mg-naloxone 2 mg 1 film sublingual DAILY 01/07/24 07/27/24 07/27/24 08:00 History sublingual film hydroxyzine pamoate 50 mg capsule 50 mg PO Q4H PRN Anxiety 01/07/24 07/27/24 Unknown History bupropion HCl 300 mg 24 hr tablet, 300 mg PO DAILY 07/27/24 07/27/24 07/27/24 08:00 History extended release buspirone 10 mg tablet 20 mg PO TID 07/27/24 07/27/24 07/27/24 14:00 History clonidine HCl 0.1 mg tablet 0.1 mg PO BID 07/27/24 07/27/24 07/27/24 08:00 History quetiapine 25 mg tablet 75 mg PO TID 07/27/24 07/27/24 07/27/24 14:00 History trazodone 150 mg tablet 150 mg PO BEDTIME 07/27/24 07/27/24 Unknown History Physical Exam 2 Vital Signs: Vital Signs: Last Vital Signs Temp 97.5 F 08/01/24 12:53 Pulse 63 08/01/24 12:53 Resp 20 08/01/24 12:53 BP 97/65 08/01/24 12:53 Pulse Ox 97 08/01/24 12:53 O2 Del Method Room Air 08/01/24 12:53 BMI result Body Mass Index 26.9 Neuro: Other: Non focal exam Results Labs 08/01/24 00:33 08/01/24 00:33 Labs: Short CBC 08/01/24 Range/Units 00:33 WBC 5.5 (4.8-10.8) X10*3/uL Hgb 12.4 L (14.0-18.0) g/dl Hct 35.6 L (42.0-52.0) % Plt Count 199 (160-400) X10*3/uL BMP 08/01/24 00:33 Sodium 138 Potassium 3.8 Chloride 100 Carbon Dioxide 29 BUN 22 H Creatinine 1.03 Calcium 9.4 D Liver Function 08/01/24 Range/Units 00:33 Total Bilirubin 0.2 (0.0-1.0) mg/dL Direct Bilirubin < 0.2 (0.0-0.5) mg/dL AST 20 (5-37) U/L ALT 19 (0-40) U/L Alkaline Phosphatase 55 (39-117) U/L Albumin 4.2 (3.5-5.0) g/dL Assessment and Plan (1) Alcohol use disorder, severe, dependence: Status: Acute alcohol rehab (2) Cognitive disorder: Status: Acute EEG; Check Thiamine levels. Follow ammonia levels Treat with Thiamine 100mg IV x 3 days Procedures Date of Service Date of Service: 08/01/24
[2024-08-01] MEDS: traZODone HCL 50 MG TABLET 150 MG PO (21:40)
--- NOTE | 2024-08-01 22:44 | PC.NURSE ---
Patient arrives to ED BH Pod 7. Ambulates with steady gait within the pod. Able to make needs known. Watching TV on BH7 couch. Warm blanket provided. Care ongoing by this RN.
[2024-08-02] MEDS: hydrOXYzine HCL 50 MG TABLET PO ×4 (01:53→22:11)
[2024-08-02] MEDS: Melatonin 3 MG TABLET 6 MG PO ×2 (01:53→22:12)
--- NOTE | 2024-08-02 02:00 | PC.NURSE ---
Pt medicated with PRN Hydroxyzine & Melatonin to help him sleep. Aware of plan to meet with psychiatrist tomorrow morning to review MRI & care plan. Pt is pleasant and agreeable to plan. Given blanket and stated I'm gonna try to go to sleep now . Ambulates with steady gait, able to make needs known. Care ongoing by this RN.
--- NOTE | 2024-08-02 02:47 | PC.NURSE ---
Patient sleeping comfortably at this time. Respirations even/unlabored. No acute distress noted. Care ongoing by this RN.
--- NOTE | 2024-08-02 05:21 | PC.NURSE ---
Patient awake, ambulating to bathroom at this time with steady gait. No acute distress.
--- NOTE | 2024-08-02 07:44 | PC.NURSE ---
Assumed care of patient at 0645, patient appears to be in no apparent distress this am, calm and cooperative, respirations even and unlabored. Continue plan of care for psych follow up
[2024-08-02 08:00] VITALS: BP 106/61; PULSE 65; RESP 18; TEMP 36.6; O2SAT 97
[2024-08-02] MEDS: Buprenorphine/Naloxone 8/2 mg FILM 1 FILM SUBLINGUAL (08:25)
[2024-08-02] MEDS: busPIRone HCl 10 MG TABLET 20 MG PO ×3 (08:39→21:13)
[2024-08-02] MEDS: cloNIDine HCL 0.1 MG TABLET PO ×2 (08:39→21:13)
[2024-08-02] MEDS: QUEtiapine Fumarate 25 MG TABLET 75 MG PO ×3 (08:39→21:13)
[2024-08-02] MEDS: Thiamine HCL 500 MG in 0.9 % Sodium Chloride 100 ML 210 MG IV ×3 (08:43→22:14)
--- NOTE | 2024-08-02 08:49 | PC.NURSE ---
Transferred from pod. Patient alert and responsive , denies pain or discomfort. IV placed, medicated per nov.
[2024-08-02 08:57] LABS: Anion Gap 11 (12-20); Blood Urea Nitrogen 18 mg/dL (9-16); Calcium 9.3 mg/dL (8.4-10.2); Carbon Dioxide 30 mmol/L (22-29); Chloride 102 mmol/L (96-108); Creatinine Clr Calc Pharmacy 96.1; Estimated Glomerular Filt Rate > 60; Glucose Random 119 mg/dL (60-115); Potassium 4.1 mmol/L (3.3-5.1); Sodium 139 mmol/L (135-145)
[2024-08-02] MEDS: buPROPion HCl XL 300 MG TAB.ER.24H PO (09:11)
--- NOTE | 2024-08-02 09:48 | PC.NURSE ---
Medicated with prn atarax for complaints of feeling anxious with good effect.
--- NOTE | 2024-08-02 11:43 | MHC.EDTECH ---
provided lunch tray to patient.
[2024-08-02 11:56] VITALS: BP 107/66; PULSE 81; RESP 18; TEMP 36.9; O2SAT 98
--- NOTE | 2024-08-02 12:05 | PC.NURSE ---
pt is alert and oriented, skin pwd, respirations even and unlabored, pt reports chronic leg pain, pt states that for a while has been feeling off like in a fog state and feels confused about things, has clarity at times but other times he does not, no visible tremor at this time, pt does report feeling slightly anxious
[2024-08-02 12:13] LABS: RPR Rapid Plasma Reagin NON-REACTIVE (NON-REACTIVE)
--- NOTE | 2024-08-02 13:37 | P.HPHOSP_ITS ---
History of Present Illness Date of Service: 08/02/24 Attending physician on admission: Bryant Sanchez Chief Complaint: Confusion Pt is a 49-year-old male with a PMH significant for ?TBI, polysubstance use disorder on Suboxone, alcohol?use disorder, neuropathy, depression, and anxiety who initially presented to the ED 6 days prior on 07/27/2024 with confusion. According to ED provider patient was released from [facility] yesterday and stated he went to a gas station and ?I was standing in the rain, I really stated been 2 hours, I did not know what I supposed to be doing. Patient initially reported he thought that he was released from [facility] to [facility] which should happen before he claims due to insurance issues. Patient was initially placed in physician observation awaiting possible inpatient psychiatric placement. Was seen and evaluated by psychiatry who noted horizontal nystagmus, unsteady gait, and confusion, concerning for Wernicke's encephalopathy. CT of head negative, MRI showing baseline volumetric measurements that do not support a diagnosis of primary Alzheimer's dementia. Was seen and evaluated by Neurology prior to MRI who initially recommended IV thiamine 100 mg IV x3 days. However post MRI, Up-to-Date recommendations are for thiamine 500 mg IV t.i.d. x2 days then thiamine 250 mg IV or IM x5 days. Patient seen and evaluated in his room where he is resting comfortably in bed. Patient is alert and oriented x3 and partly to situation. Patient reports he ?knows parts? of what brought him to the hospital, though tells a very long, rambling, and not entirely coherent story. Is a poor historian. Reports history of TBI where he fell on the concrete striking his head. Reports multiple other head strikes of much less clear etiology. Patient states he has been to [facility] at least twice in the past, including being discharged the day of presentation to the ED. states a long history of drinking ?quite a lot of alcohol. Reports drinking since he was 9 years old, and significant for many other substances including [place] sprays, glue, and paint thinner. 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 Pt complains of peripheral neuropathy but denies all other acute medical complaints. No chest pain/pressure, palpitations. Denies fever, chills, nausea, vomiting, abdominal pain. No shortness a breath or difficulty breathing. Patient be admitted to the medical floor for treatment and further evaluation of question of Wernicke's encephalopathy requiring IV thiamine. Review of Systems 2 Review of Systems: Negative except for that which is stated in the [facility] Medical History (Updated 08/01/24 @ 00:00 by Debbie Amato) Mood disorder Depressive disorder Substance abuse Insomnia Depression Anxiety Head injury Neuropathy Surgical History (Updated 07/27/24 @ 18:35 by Neris Cole RN) S/P appendectomy Social History Household Members: Unknown / Unable to assess Housing: Unknown / Unable to assess Comment: 1:1 sitter Patient Tobacco Use Status: Tobacco use Unknown Smoked in Last 30 Days: Yes Use of substances other than those prescribed or required for medical reasons: No Advance Directives: No Advance Directives Information Provided: No Advance Directives Date on File: 01/07/24 Do you have a plan to hurt others: No Plan service: No Meds Allergies Allergy/AdvReac Type Severity Reaction Status Date / Time No Known Allergies Allergy Verified 07/27/24 17:10 Active Medications: Current Medications Buprenorphine/Naloxone (Buprenorphine/Naloxone 8/2 Mg Film) 1 film SUBLINGUAL DAILY [facility] Last Admin: 08/02/24 08:25 Dose: 1 film Bupropion HCl (Bupropion Hcl Xl 300 Mg Tab.Er.24h) 300 mg PO DAILY [facility] Last Admin: 08/02/24 09:11 Dose: 300 mg Buspirone HCl (Buspirone Hcl 10 Mg Tablet) 20 mg PO TID [facility] Last Admin: 08/02/24 08:39 Dose: 20 mg Clonidine HCl (Clonidine Hcl 0.1 Mg Tablet) 0.1 mg PO BID [facility]; Protocol Last Admin: 08/02/24 08:39 Dose: 0.1 mg Hydroxyzine HCl (Hydroxyzine Hcl 50 Mg Tablet) 50 mg PO Q4H PRN PRN Reason: Anxiety Last Admin: 08/02/24 09:11 Dose: 50 mg Thiamine HCl 500 mg/ Sodium (Chloride) 105 mls @ 210 mls/hr IV Q8H [facility] Stop: 08/03/24 23:29 Thiamine HCl 250 mg/ Sodium (Chloride) 102.5 mls @ 208 mls/hr IV DAILY [facility] Stop: 08/08/24 09:30 Melatonin (Melatonin 3 Mg Tablet) 6 mg PO BEDTIME PRN PRN Reason: Insomnia Last Admin: 08/02/24 01:53 Dose: 6 mg Quetiapine Fumarate (Quetiapine Fumarate 25 Mg Tablet) 75 mg PO TID [facility] Last Admin: 08/02/24 08:39 Dose: 75 mg Thiamine HCl (Thiamine Hcl 100 Mg Tablet) 100 mg PO DAILY [facility] Trazodone HCl (Trazodone Hcl 50 Mg Tablet) 150 mg PO BEDTIME [facility] Last Admin: 08/01/24 21:40 Dose: 150 mg Home Medications ?Medication ?Instructions ?Recorded ?Confirmed ?Last Taken ?Type buprenorphine 8 mg-naloxone 2 mg 1 film sublingual DAILY 01/07/24 07/27/24 07/27/24 08:00 History sublingual film hydroxyzine pamoate 50 mg capsule 50 mg PO Q4H PRN Anxiety 01/07/24 07/27/24 Unknown History bupropion HCl 300 mg 24 hr tablet, 300 mg PO DAILY 07/27/24 07/27/24 07/27/24 08:00 History extended release buspirone 10 mg tablet 20 mg PO TID 07/27/24 07/27/24 07/27/24 14:00 History clonidine HCl 0.1 mg tablet 0.1 mg PO BID 07/27/24 07/27/24 07/27/24 08:00 History quetiapine 25 mg tablet 75 mg PO TID 07/27/24 07/27/24 07/27/24 14:00 History trazodone 150 mg tablet 150 mg PO BEDTIME 07/27/24 07/27/24 Unknown History Physical Exam 2 Vital Signs and Narrative: Vital Signs: Last Vital Signs Temp 98.4 F 08/02/24 11:56 Pulse 81 08/02/24 11:56 Resp 18 08/02/24 11:56 BP 107/66 08/02/24 11:56 Pulse Ox 98 08/02/24 11:56 O2 Del Method Room Air 08/02/24 11:56 BMI result Body Mass Index 26.9 General: AOx3, no acute distress Resp: CTA bilaterally CVS: S1, S2, RRR GI: +BS, NT, no distention Skin: Warm, dry Neuro: Cranial nerves II-XII grossly intact bilaterally. Motor grossly intact bilaterally. No nystagmus noted. Extremities: No edema Psych: Mildly confused Results Labs 08/01/24 00:33 08/02/24 08:37 Labs: Laboratory Results - last 24 hr 07/31/24 08/02/24 14:52 08:37 Hold Purple Top SEE NOTE Anion Gap 11 L Estim Creat Clear Calc 96.1 Estimated GFR > 60 Random Glucose 119 H Calcium 9.3 Magnesium 2.0 RPR NON-REACTIVE Imaging Radiologist's Impressions: Impressions Brain MRI 07/31/24 15:16 IMPRESSION: Baseline volumetric measurements do not support a diagnosis of primary Alzheimer's dementia at the present time. Electronically signed by: Liya Perez MD 08/01/2024 02:09 PM EST RP Assessment and Plan (1) Alcohol use disorder, severe, dependence: Status: Acute Plan Pt is a 49-year-old male with a PMH significant for ?TBI, polysubstance use disorder on Suboxone, alcohol?use disorder, neuropathy, depression, and anxiety who initially presented to the ED 6 days prior on 07/27/2024 with confusion. Patient be admitted to the medical floor for treatment and further evaluation of question of Wernicke's encephalopathy requiring IV thiamine. 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 Mood disorder Continue bupropion, buspirone, clonidine, hydroxyzine, quetiapine, and trazodone Care team consult prior to likely psychiatric inpatient placement Full Code Attending:?Dr. Sanchez DVT Prophylaxis: Lovenox Pt will require a hospitalization of at least two nights for treatment of?confusion and altered mental status concerning for Wernicke's encephalopathy that will require administration of IV thiamine. Quality Stroke Does the patient have a stroke diagnosis?: No VTE Prior VTE?: No VTE Risk Level:: Medical - moderate - high VTE Device Contraindication: Treatment Not Indicated VTE Drug Contraindication: N/A - Med Ordered
[2024-08-02 14:35] VITALS: BP 148/87; PULSE 85; RESP 20; TEMP 36.6; O2SAT 98
[2024-08-02] MEDS: Enoxaparin Sodium 40 MG/0.4 ML SYRINGE SUBCUT (14:41)
--- NOTE | 2024-08-02 16:51 | MHC.EDTECH ---
Dinner tray provided
--- NOTE | 2024-08-02 17:06 | PC.NURSE ---
delay in medication administration as medication was not readily available - pharmacy called/medication delivered/administered per provider order. pt also verbalizing increase in anxiety - requesting PRN. PRN atarax administered per pt request. effectiveness pending.
[2024-08-02 19:23] VITALS: BP 104/61; PULSE 73; RESP 18; TEMP 36.4; O2SAT 98
[2024-08-02 21:05] VITALS: BP 102/58; PULSE 65; RESP 20; TEMP 33.4; O2SAT 95
[2024-08-02] MEDS: traZODone HCL 50 MG TABLET 150 MG PO (21:13)
[2024-08-02] MEDS: Gabapentin 300 MG CAPSULE PO (21:14)
[2024-08-03] VITALS (9 sets, daily range): BP systolic 98–142; BP diastolic 62–94; PULSE 55–75; RESP 12–18; TEMP 35.9–36.6; O2SAT 94–100; BMI 27.3
[2024-08-03] MEDS: 0.9 % Sodium Chloride Flush 3 ML SYRINGE IVFLUSH ×3 (00:27→21:12)
--- NOTE | 2024-08-03 03:50 | PC.NURSE ---
Patient reports urinary hesitancy, especially in the morning per pt.
[2024-08-03] MEDS: hydrOXYzine HCL 50 MG TABLET PO ×3 (04:32→20:21)
[2024-08-03 05:25] LABS: Hematocrit 37.1 % (42.0-52.0); Hemoglobin 12.6 g/dl (14.0-18.0); Mean Corpuscular Hemoglobin 32.1 pg (27.0-33.0); Mean Corpuscular Volume 94.4 fL (80.0-98.0); Mean Platelet Volume 10.2 fL (9.4-12.4); Platelet Count 169 X10*3/uL (160-400); Red Blood Count 3.93 X10*6/uL (4.60-5.80); Red Cell Distribution Width 13.3 % (11.0-16.0); White Blood Count 5.2 X10*3/uL (4.8-10.8)
[2024-08-03 05:31] LABS: Ammonia 43 umol/L (13-55)
[2024-08-03 05:39] LABS: Anion Gap 14 (12-20); Blood Urea Nitrogen 20 mg/dL (9-16); Calcium 9.2 mg/dL (8.4-10.2); Carbon Dioxide 26 mmol/L (22-29); Chloride 103 mmol/L (96-108); Creatinine Clr Calc Pharmacy 96.1; Estimated Glomerular Filt Rate > 60; Glucose Random 122 mg/dL (60-115); Potassium 3.7 mmol/L (3.3-5.1); Sodium 139 mmol/L (135-145)
[2024-08-03] MEDS: QUEtiapine Fumarate 25 MG TABLET 75 MG PO ×3 (08:47→21:11)
[2024-08-03] MEDS: cloNIDine HCL 0.1 MG TABLET PO ×2 (08:47→21:10)
[2024-08-03] MEDS: buPROPion HCl XL 300 MG TAB.ER.24H PO (08:47)
[2024-08-03] MEDS: busPIRone HCl 10 MG TABLET 20 MG PO ×3 (08:47→21:11)
[2024-08-03] MEDS: Gabapentin 300 MG CAPSULE PO ×2 (08:47→21:11)
[2024-08-03] MEDS: Buprenorphine/Naloxone 8/2 mg FILM 1 FILM SUBLINGUAL (08:48)
[2024-08-03] MEDS: Thiamine HCL 500 MG in 0.9 % Sodium Chloride 100 ML 210 MG IV ×3 (08:48→22:34)
--- NOTE | 2024-08-03 09:23 | MHC.CM.PN ---
Per EMR review, Pt. was at [facility] in., was D/C'd to [facility] in [place], but did not make it there, came [place] [facility]. Care Team has evaluated him and is searching for a bed in an ACCS. CM to follow for DC needs.
--- NOTE | 2024-08-03 11:34 | P.PNIM_ITS ---
Subjective Subjective Date of Service: 08/03/24 Interval History: Seen and evaluated this morning aware of his current problem but has no recall of his past job , confused and easy to distract No reported seizures No other overnight events Review of Systems Review of Systems: Yes all other systems are reviewed and are negative Physical Exam 2 Vital Signs: Vital Signs: Last Vital Signs Temp 97 F 08/03/24 07:32 Pulse 55 08/03/24 07:32 Resp 16 08/03/24 07:32 BP 126/71 08/03/24 08:47 Pulse Ox 96 08/03/24 07:32 O2 Del Method Room Air 08/03/24 07:32 BMI result Body Mass Index 27.3 Const: Other: Constitutional : interactive, not in distress Cardiovascular : no JVP, no lower extremity edema Respiratory : bilateral chest movement, not in resp distress Gastrointestinal: soft, lax, Non tender Skin : Warm, Dry Neurological : Alert & oriented to self and place, short term memory affected, confused about old past, No focal deficit Objective Data Active Medications Acetaminophen (Acetaminophen 325 Mg Tablet) 650 mg PO Q6H PRN PRN Reason: Pain, Mild (Pain Scale 1-3), fever or headache Buprenorphine/Naloxone (Buprenorphine/Naloxone 8/2 Mg Film) 1 film SUBLINGUAL DAILY [facility] Last Admin: 08/03/24 08:48 Dose: 1 film Documented By: SUSI Bupropion HCl (Bupropion Hcl Xl 300 Mg Tab.Er.24h) 300 mg PO DAILY [facility] Last Admin: 08/03/24 08:47 Dose: 300 mg Documented By: SUSI Buspirone HCl (Buspirone Hcl 10 Mg Tablet) 20 mg PO TID [facility] Last Admin: 08/03/24 08:47 Dose: 20 mg Documented By: SUSI Calcium Carbonate (Calcium Carbonate 750 Mg Tab.Chew) 750 mg PO Q4H PRN PRN Reason: Heartburn Clonidine HCl (Clonidine Hcl 0.1 Mg Tablet) 0.1 mg PO BID [facility]; Protocol Last Admin: 08/03/24 08:47 Dose: 0.1 mg Documented By: SUSI Enoxaparin Sodium (Enoxaparin Sodium 40 Mg/0.4 Ml Syringe) 40 mg SUBCUT Q24H [facility] Last Admin: 08/02/24 14:41 Dose: 40 mg Documented By: MONICA Gabapentin (Gabapentin 300 Mg Capsule) 300 mg PO BID [facility] Last Admin: 08/03/24 08:47 Dose: 300 mg Documented By: SUSI Hydroxyzine HCl (Hydroxyzine Hcl 50 Mg Tablet) 50 mg PO Q4H PRN PRN Reason: Anxiety Last Admin: 08/03/24 04:32 Dose: 50 mg Documented By: BRIANNA Thiamine HCl 250 mg/ Sodium (Chloride) 102.5 mls @ 208 mls/hr IV DAILY [facility] Stop: 08/08/24 09:30 Thiamine HCl 500 mg/ Sodium (Chloride) 105 mls @ 210 mls/hr IV Q8H [facility] Stop: 08/03/24 23:29 Magnesium Hydroxide (Milk Of Magnesia 30 Ml Oral.Susp) 30 ml PO DAILY PRN PRN Reason: Constipation Ondansetron HCl (Ondansetron Hcl 4 Mg/2 Ml Vial) 4 mg IVPUSH Q8H PRN PRN Reason: Nausea and Vomiting Quetiapine Fumarate (Quetiapine Fumarate 25 Mg Tablet) 75 mg PO TID [facility] Last Admin: 08/03/24 08:47 Dose: 75 mg Documented By: SUSI Sodium Chloride (0.9 % Sodium Chloride Flush 3 Ml Syringe) 3 ml IVFLUSH QSHIFT [facility] Last Admin: 08/03/24 08:48 Dose: 3 ml Documented By: SUSI Thiamine HCl (Thiamine Hcl 100 Mg Tablet) 100 mg PO DAILY [facility] Trazodone HCl (Trazodone Hcl 50 Mg Tablet) 150 mg PO BEDTIME [facility] Last Admin: 08/02/24 21:13 Dose: 150 mg Documented By: MARCY Labs 08/03/24 05:15 08/03/24 05:15 Labs: Laboratory Results - last 24 hr 07/31/24 08/03/24 14:52 05:15 MCV 94.4 MCH 32.1 MCHC 34.0 RDW 13.3 Plt Count 169 MPV 10.2 Absolute Nucleated RBC 0.000 Nucleated RBC % (auto) 0.0 Anion Gap 14 Estim Creat Clear Calc 96.1 Estimated GFR > 60 Random Glucose 122 H Calcium 9.2 Ammonia 43 RPR NON-REACTIVE Assessment and Plan (1) Alcohol use disorder, severe, dependence: Status: Acute (2) Cognitive disorder: Status: Acute Plan Pt is a 49-year-old male with a PMH significant for ?TBI, polysubstance use disorder on Suboxone, alcohol?use disorder, neuropathy, depression, and anxiety who initially presented to the ED 6 days prior on 07/27/2024 with confusion. Patient be admitted to the medical floor for treatment and further evaluation of question of Wernicke's encephalopathy requiring IV thiamine. 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 Mood disorder Continue bupropion, buspirone, clonidine, hydroxyzine, quetiapine, and trazodone Care team consult prior to likely psychiatric inpatient placement Full Code DVT Prophylaxis: Lovenox Pt will require a hospitalization overnight for treatment of?confusion and altered mental status concerning for Wernicke's encephalopathy that will require administration of IV thiamine. Quality Stroke Does the patient have a stroke diagnosis?: No VTE Prior VTE?: No VTE Risk Level:: Medical - moderate - high VTE Device Contraindication: Treatment Not Indicated VTE Drug Contraindication: N/A - Med Ordered
[2024-08-03] MEDS: Enoxaparin Sodium 40 MG/0.4 ML SYRINGE SUBCUT (13:59)
[2024-08-03] MEDS: traZODone HCL 50 MG TABLET 150 MG PO (21:11)
[2024-08-04 03:47] VITALS: BP 119/77; PULSE 75; RESP 16; TEMP 36.1; O2SAT 97
[2024-08-04 07:47] VITALS: BP 118/78; PULSE 65; RESP 16; TEMP 36.4; O2SAT 99
[2024-08-04] MEDS: busPIRone HCl 10 MG TABLET 20 MG PO ×3 (08:33→21:48)
[2024-08-04] MEDS: Gabapentin 300 MG CAPSULE PO ×2 (08:33→21:49)
[2024-08-04] MEDS: Buprenorphine/Naloxone 8/2 mg FILM 1 FILM SUBLINGUAL (08:33)
[2024-08-04] MEDS: buPROPion HCl XL 300 MG TAB.ER.24H PO (08:33)
[2024-08-04] MEDS: cloNIDine HCL 0.1 MG TABLET PO ×2 (08:33→21:49)
[2024-08-04] MEDS: QUEtiapine Fumarate 25 MG TABLET 75 MG PO ×3 (08:33→21:48)
[2024-08-04] MEDS: Thiamine HCL 250 MG in 0.9 % Sodium Chloride 100 ML 208 MG IV (08:34)
[2024-08-04] MEDS: 0.9 % Sodium Chloride Flush 3 ML SYRINGE IVFLUSH ×3 (08:42→23:47)
--- NOTE | 2024-08-04 10:46 | HO.PM.IMPN ---
Subjective Subjective Date of Service: 08/04/24 Interval History: Seen and evaluated this morning more interactive but gets easily confused and easy to distract No reported seizures No other overnight events Review of Systems Review of Systems: Yes all other systems are reviewed and are negative Physical Exam Vital Signs: Vital Signs: Last Vital Signs Temp 97.6 F 08/04/24 07:47 Pulse 65 08/04/24 07:47 Resp 16 08/04/24 07:47 BP 118/78 08/04/24 07:47 Pulse Ox 99 08/04/24 07:47 O2 Del Method Room Air 08/04/24 07:47 BMI result Body Mass Index 27.3 Const: Other: Constitutional : interactive, not in distress Cardiovascular : no JVP, no lower extremity edema Respiratory : bilateral chest movement, not in resp distress Gastrointestinal: soft, lax, Non tender Skin : Warm, Dry Neurological : Alert & oriented to self and place, short term memory affected, confused about old past, No focal deficit Objective Data Active Medications Acetaminophen (Acetaminophen 325 Mg Tablet) 650 mg PO Q6H PRN PRN Reason: Pain, Mild (Pain Scale 1-3), fever or headache Buprenorphine/Naloxone (Buprenorphine/Naloxone 8/2 Mg Film) 1 film SUBLINGUAL DAILY [facility] Last Admin: 08/04/24 08:33 Dose: 1 film Documented By: MACIE Bupropion HCl (Bupropion Hcl Xl 300 Mg Tab.Er.24h) 300 mg PO DAILY [facility] Last Admin: 08/04/24 08:33 Dose: 300 mg Documented By: MACIE Buspirone HCl (Buspirone Hcl 10 Mg Tablet) 20 mg PO TID [facility] Last Admin: 08/04/24 08:33 Dose: 20 mg Documented By: MACIE Calcium Carbonate (Calcium Carbonate 750 Mg Tab.Chew) 750 mg PO Q4H PRN PRN Reason: Heartburn Clonidine HCl (Clonidine Hcl 0.1 Mg Tablet) 0.1 mg PO BID [facility]; Protocol Last Admin: 08/04/24 08:33 Dose: 0.1 mg Documented By: MACIE Enoxaparin Sodium (Enoxaparin Sodium 40 Mg/0.4 Ml Syringe) 40 mg SUBCUT Q24H [facility] Last Admin: 08/03/24 13:59 Dose: 40 mg Documented By: FABIEN Gabapentin (Gabapentin 300 Mg Capsule) 300 mg PO BID [facility] Last Admin: 08/04/24 08:33 Dose: 300 mg Documented By: MACIE Hydroxyzine HCl (Hydroxyzine Hcl 50 Mg Tablet) 50 mg PO Q4H PRN PRN Reason: Anxiety Last Admin: 08/03/24 20:21 Dose: 50 mg Documented By: PAULA Thiamine HCl 250 mg/ Sodium (Chloride) 102.5 mls @ 208 mls/hr IV DAILY [facility] Stop: 08/08/24 09:30 Last Infusion: 08/04/24 09:20 Dose: Infused Documented By: MACIE Magnesium Hydroxide (Milk Of Magnesia 30 Ml Oral.Susp) 30 ml PO DAILY PRN PRN Reason: Constipation Ondansetron HCl (Ondansetron Hcl 4 Mg/2 Ml Vial) 4 mg IVPUSH Q8H PRN PRN Reason: Nausea and Vomiting Quetiapine Fumarate (Quetiapine Fumarate 25 Mg Tablet) 75 mg PO TID [facility] Last Admin: 08/04/24 08:33 Dose: 75 mg Documented By: MACIE Sodium Chloride (0.9 % Sodium Chloride Flush 3 Ml Syringe) 3 ml IVFLUSH QSHIFT [facility] Last Admin: 08/04/24 08:42 Dose: 3 ml Documented By: MACIE Thiamine HCl (Thiamine Hcl 100 Mg Tablet) 100 mg PO DAILY [facility] Trazodone HCl (Trazodone Hcl 50 Mg Tablet) 150 mg PO BEDTIME [facility] Last Admin: 08/03/24 21:11 Dose: 150 mg Documented By: PAULA Labs 08/03/24 05:15 08/03/24 05:15 Labs: Laboratory Results - last 24 hr 07/31/24 14:52 RPR Titer TNP Assessment and Plan (1) Alcohol use disorder, severe, dependence: Status: Acute (2) Cognitive disorder: Status: Acute Plan Pt is a 49-year-old male with a PMH significant for ?TBI, polysubstance use disorder on Suboxone, alcohol?use disorder, neuropathy, depression, and anxiety who initially presented to the ED 6 days prior on 07/27/2024 with confusion. Patient be admitted to the medical floor for treatment and further evaluation of question of Wernicke's encephalopathy requiring IV thiamine. 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 Alcohol use disorder Has been on CIWA x5 days, all 0-1 points, will discontinue Addiction medicine consult Peripheral neuropathy Gabapentin 300 mg b.i.d. Mood disorder Continue bupropion, buspirone, clonidine, hydroxyzine, quetiapine, and trazodone Care team consult prior to likely psychiatric inpatient placement Full Code DVT Prophylaxis: Lovenox Pt will require a hospitalization overnight for treatment of?confusion and altered mental status concerning for Wernicke's encephalopathy that will require administration of IV thiamine. Quality Stroke Does the patient have a stroke diagnosis?: No VTE Prior VTE?: No VTE Risk Level:: Medical - moderate - high VTE Device Contraindication: Treatment Not Indicated VTE Drug Contraindication: N/A - Med Ordered
--- NOTE | 2024-08-04 11:14 | HO.ADDICTCON ---
History of Present Illness Date of Service: 08/04/24 Chief Complaint: ?Wernicke's encephalopathy Reason for Consult: AUD wernikes encephalopathy Sources of Information: patient interviewed and chart reviewed HPI Narrative: Patient is a 49 year old male currently medically admitted with Wernikes encephalopathy requiring high dose IV thiamine replacement. Per chart review, he presented to [facility] ED with confusion and complaining of pain in his legs and feet. He was seen by neurology and psychiatry. There was concern of possbile Wernikes encephalopathy due to patients history of AUD and clinical presentation including, confusion, memory impairment, nystagmus and impaired gait. He was started on Thiamine 500mg IV TID X2 days, then Thiamine 250mg IV with plan to continue PO 100mg daily once IV treatment completed. MRI showing Patient seen in room 373. He is awake, alert, engaged in interview, however guarded at times. He is oriented to self, place and year, while he does not know the day of the week he does recall that yesterday was Thanksgiving. He is still unable to recall what brought him to [facility]. Nystagmus resolved. Gait not assessed. He reports pain in his feet (likely neuropathy) has improved since starting gabapentin. Slight tremor observed and felt when arms extended. Patient also reports what he feels are involuntary finger twitches Substance use history reviewed, and patient providing quite extensive detail including trauma history related to substance use. Challenging at times to obtain history as patient was tangential and overly inclusive He states he is from the [facility], but could not recall when or how he came to [facility]. He stated that he has a psychiatric provider in the [facility], but could not recall their name or when he last saw them [facility] shows Suboxone rx prescribed by providers in [facility] since 08/2022, with last rx being filled 07/04/24 for 28 day supply. 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 He has not shown any signs of alcohol withdrawal since admission. He stated If I see it, I'm going to drink it, its just the truth, I wish I didn't want to (referring to hand boarder machine) He reports that his mother has power of family law attorney over his finances because my memory isn't great . He states he has a girlfriend in this area, but was reluctant to share any more information about her. He verbalizes that he is having difficulty with formulating his thoughts, and finds this frustrating. He states that he has been having AH and VH for some time, and would not answer when asked if he is still experiencing AH or VH. He shared numerous notes that he has been writing, which are a but challenging to read even for him. He is frustrated that he can draw well, but can not write legibly without trying really hard . Past Psychiatric History: see CARE team michael for further Hx Personal & Social History: He reports that he is currently unhoused, but could not state what town he was staying in or if he has been staying at someone's home or outside Review of Systems Constitutional: Reports difficulty sleeping Musculoskeletal: Reports numbness (legs and feet--however resolving per patient) and Reports tingling Reports numbness (legs and feet--however resolving per patient) and Reports tingling Psychiatric: Reports anxiety and Reports difficulty concentrating Comments: declined to respond related to AH and VH Diagnostics Vital Signs (24Hr): Vital Signs - 24 hr 08/03/24 11:44 08/03/24 15:03 08/03/24 19:28 Temperature 98 F 96.7 F L 97.4 F Pulse Rate 57 75 66 Respiratory Rate 12 16 18 Blood Pressure 98/63 107/63 107/66 Pulse Oximetry 94 100 97 Oxygen Delivery Method Room Air Room Air Room Air 08/03/24 23:46 08/04/24 03:47 08/04/24 07:47 Temperature 97.7 F 97 F 97.6 F Pulse Rate 69 75 65 Respiratory Rate 18 16 16 Blood Pressure 136/94 H 119/77 118/78 Pulse Oximetry 98 97 99 Oxygen Delivery Method Room Air Room Air Room Air BMI result Body Mass Index 27.3 Labs 08/03/24 05:15 08/03/24 05:15 Labs: Laboratory Results - last 48 hr 07/31/24 08/03/24 14:52 05:15 WBC 5.2 RBC 3.93 L Hgb 12.6 L Hct 37.1 L MCV 94.4 MCH 32.1 MCHC 34.0 RDW 13.3 Plt Count 169 MPV 10.2 Absolute Nucleated RBC 0.000 Nucleated RBC % (auto) 0.0 Sodium 139 Potassium 3.7 Chloride 103 Carbon Dioxide 26 Anion Gap 14 BUN 20 H Creatinine 0.96 Estim Creat Clear Calc 96.1 Estimated GFR > 60 Random Glucose 122 H Calcium 9.2 Ammonia 43 RPR Titer TNP RPR NON-REACTIVE Imaging Radiology Impressions: ITS Impressions Head CT 07/31/24 14:28 IMPRESSION: No acute intracranial pathology. Electronically signed by: Rickie Mcpherson MD 07/31/2024 04:32 PM EST RP Brain MRI 07/31/24 15:16 IMPRESSION: Baseline volumetric measurements do not support a diagnosis of primary Alzheimer's dementia at the present time. Electronically signed by: Liya Perez MD 08/01/2024 02:09 PM EST RP Mental Status Exam Mental Status Exam Patient Orientation: Person, Place and Time Level of Consciousness: Awake and Alert Patient Behavior: Guarded, Cooperative and Anxious Mood Description: Anxious Affect Description: Anxious Speech Pattern: Clear and Difficulty Finding Words Memory Description: Recent Impaired Thought Process: Slowed Thinking Thought Content: positive for Tangential and positive for Disorganized Medications Medications Current Medications Acetaminophen (Acetaminophen 325 Mg Tablet) 650 mg PO Q6H PRN PRN Reason: Pain, Mild (Pain Scale 1-3), fever or headache Buprenorphine/Naloxone (Buprenorphine/Naloxone 8/2 Mg Film) 1 film SUBLINGUAL DAILY [facility] Last Admin: 08/04/24 08:33 Dose: 1 film Bupropion HCl (Bupropion Hcl Xl 300 Mg Tab.Er.24h) 300 mg PO DAILY [facility] Last Admin: 08/04/24 08:33 Dose: 300 mg Buspirone HCl (Buspirone Hcl 10 Mg Tablet) 20 mg PO TID [facility] Last Admin: 08/04/24 08:33 Dose: 20 mg Calcium Carbonate (Calcium Carbonate 750 Mg Tab.Chew) 750 mg PO Q4H PRN PRN Reason: Heartburn Clonidine HCl (Clonidine Hcl 0.1 Mg Tablet) 0.1 mg PO BID [facility]; Protocol Last Admin: 08/04/24 08:33 Dose: 0.1 mg Enoxaparin Sodium (Enoxaparin Sodium 40 Mg/0.4 Ml Syringe) 40 mg SUBCUT Q24H [facility] Last Admin: 08/03/24 13:59 Dose: 40 mg Gabapentin (Gabapentin 300 Mg Capsule) 300 mg PO BID [facility] Last Admin: 08/04/24 08:33 Dose: 300 mg Hydroxyzine HCl (Hydroxyzine Hcl 50 Mg Tablet) 50 mg PO Q4H PRN PRN Reason: Anxiety Last Admin: 08/03/24 20:21 Dose: 50 mg Thiamine HCl 250 mg/ Sodium (Chloride) 102.5 mls @ 208 mls/hr IV DAILY [facility] Stop: 08/08/24 09:30 Last Infusion: 08/04/24 09:20 Dose: Infused Magnesium Hydroxide (Milk Of Magnesia 30 Ml Oral.Susp) 30 ml PO DAILY PRN PRN Reason: Constipation Ondansetron HCl (Ondansetron Hcl 4 Mg/2 Ml Vial) 4 mg IVPUSH Q8H PRN PRN Reason: Nausea and Vomiting Quetiapine Fumarate (Quetiapine Fumarate 25 Mg Tablet) 75 mg PO TID [facility] Last Admin: 08/04/24 08:33 Dose: 75 mg Sodium Chloride (0.9 % Sodium Chloride Flush 3 Ml Syringe) 3 ml IVFLUSH QSHIFT [facility] Last Admin: 08/04/24 08:42 Dose: 3 ml Thiamine HCl (Thiamine Hcl 100 Mg Tablet) 100 mg PO DAILY [facility] Trazodone HCl (Trazodone Hcl 50 Mg Tablet) 150 mg PO BEDTIME [facility] Last Admin: 08/03/24 21:11 Dose: 150 mg Allergies Allergies Allergy/AdvReac Type Severity Reaction Status Date / Time No Known Allergies Allergy Verified 07/27/24 17:10 Assessment & Plan Assessment & Plan (1) Alcohol use disorder, severe, dependence: Status: Acute Code(s): F10.20 - Alcohol dependence, uncomplicated Assessment and Plan: no withdrawal noted in terms of KUN, naltrexone is not an option d/t suboxone treatment. Acmaprosate not available in most community pharmacies, and TID dosing may not be ideal for this patient. Gabapentin may be beneficial for anxiety in addition to neuropathy, so this may be an appropriate choice (2) Wernickes encephalopathy: Status: Acute Code(s): E51.2 - Wernicke's encephalopathy Assessment and Plan: completing high dose IV thiamine replacement while confusion is still evident, it appears to be improving from when he initially presented in ED--also, based on his report of inhalant use during adolescence, some of these issues such as memory, information processing, impulsivity, and overall cognitive impairments may be chronic in nature and then exacerbated by ongoing ETOH use, including his reports that he is ingesting hand boarder machine. Insight and judgment are impaired. continue PO thiamine daily once IV doses are completed concern for patient's ability to care for self--capacity evaluation should be completed prior to discharge to determine appropriate/safe disposition for patient. Total time managing care of this patient today __50__ minutes. 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 If so, by whom?: No Do you feel safe in your current relationship?: Yes Is there a partner from a previous relationship who is making you feel unsafe now?: No Are you made to feel afraid or neglected: No Advance Directives: No Advance Directives Information Provided: No Advance Directives Date on File: 01/07/24 Do you have a plan to hurt others: No Plan Recently lost weight without trying: No Nutrition Risks: No Nutritional Risk service: No
[2024-08-04 11:27] VITALS: BP 94/62; PULSE 68; RESP 16; TEMP 36.3; O2SAT 97
[2024-08-04] MEDS: hydrOXYzine HCL 50 MG TABLET PO ×2 (12:37→21:58)
[2024-08-04] MEDS: Enoxaparin Sodium 40 MG/0.4 ML SYRINGE SUBCUT (15:06)
[2024-08-04 16:00] VITALS: BP 128/76; RESP 20; TEMP 36.4
[2024-08-04] MEDS: traZODone HCL 50 MG TABLET 150 MG PO (21:49)
[2024-08-04 23:46] VITALS: BP 109/69; PULSE 64; RESP 16; TEMP 36.2; O2SAT 95
[2024-08-05 08:04] VITALS: BP 141/89; PULSE 58; RESP 18; TEMP 36.4; O2SAT 96
[2024-08-05] MEDS: buPROPion HCl XL 300 MG TAB.ER.24H PO (10:18)
[2024-08-05] MEDS: QUEtiapine Fumarate 25 MG TABLET 75 MG PO ×3 (10:18→20:36)
[2024-08-05] MEDS: Gabapentin 300 MG CAPSULE PO ×2 (10:18→20:37)
[2024-08-05] MEDS: Buprenorphine/Naloxone 8/2 mg FILM 1 FILM SUBLINGUAL (10:18)
[2024-08-05] MEDS: busPIRone HCl 10 MG TABLET 20 MG PO ×3 (10:18→20:37)
[2024-08-05] MEDS: cloNIDine HCL 0.1 MG TABLET PO ×2 (10:18→20:37)
[2024-08-05] MEDS: Thiamine HCL 250 MG in 0.9 % Sodium Chloride 100 ML 208 MG IV (10:22)
[2024-08-05] MEDS: 0.9 % Sodium Chloride Flush 3 ML SYRINGE IVFLUSH ×3 (10:30→20:39)
--- NOTE | 2024-08-05 13:12 | P.PNIM_ITS ---
Subjective Subjective Date of Service: 08/05/24 Interval History: Seen and evaluated this morning more interactive easily confused and easy to distract No reported seizures No other overnight events Review of Systems Review of Systems: Yes all other systems are reviewed and are negative Physical Exam 2 Vital Signs: Vital Signs: Last Vital Signs Temp 97.5 F 08/05/24 08:04 Pulse 58 08/05/24 08:04 Resp 18 08/05/24 08:04 BP 141/89 H 08/05/24 08:04 Pulse Ox 96 08/05/24 08:04 O2 Del Method Room Air 08/05/24 08:04 BMI result Body Mass Index 27.3 Const: Other: Constitutional : interactive, not in distress Cardiovascular : no JVP, no lower extremity edema Respiratory : bilateral chest movement, not in resp distress Gastrointestinal: soft, lax, Non tender Skin : Warm, Dry Neurological : Alert & oriented to self and place, short term memory affected, confused about old past, No focal deficit Objective Data Active Medications Acetaminophen (Acetaminophen 325 Mg Tablet) 650 mg PO Q6H PRN PRN Reason: Pain, Mild (Pain Scale 1-3), fever or headache Buprenorphine/Naloxone (Buprenorphine/Naloxone 8/2 Mg Film) 1 film SUBLINGUAL DAILY [facility] Last Admin: 08/05/24 10:18 Dose: 1 film Documented By: BEVERLY Bupropion HCl (Bupropion Hcl Xl 300 Mg Tab.Er.24h) 300 mg PO DAILY [facility] Last Admin: 08/05/24 10:18 Dose: 300 mg Documented By: BEVERLY Buspirone HCl (Buspirone Hcl 10 Mg Tablet) 20 mg PO TID [facility] Last Admin: 08/05/24 10:18 Dose: 20 mg Documented By: BEVERLY Calcium Carbonate (Calcium Carbonate 750 Mg Tab.Chew) 750 mg PO Q4H PRN PRN Reason: Heartburn Clonidine HCl (Clonidine Hcl 0.1 Mg Tablet) 0.1 mg PO BID [facility]; Protocol Last Admin: 08/05/24 10:18 Dose: 0.1 mg Documented By: BEVERLY Enoxaparin Sodium (Enoxaparin Sodium 40 Mg/0.4 Ml Syringe) 40 mg SUBCUT Q24H [facility] Last Admin: 08/04/24 15:06 Dose: 40 mg Documented By: MACIE Gabapentin (Gabapentin 300 Mg Capsule) 300 mg PO BID [facility] Last Admin: 08/05/24 10:18 Dose: 300 mg Documented By: BEVERLY Hydroxyzine HCl (Hydroxyzine Hcl 50 Mg Tablet) 50 mg PO Q4H PRN PRN Reason: Anxiety Last Admin: 08/04/24 21:58 Dose: 50 mg Documented By: ELISSA Thiamine HCl 250 mg/ Sodium (Chloride) 102.5 mls @ 208 mls/hr IV DAILY [facility] Stop: 08/08/24 09:30 Last Infusion: 08/05/24 11:01 Dose: Infused Documented By: BEVERLY Magnesium Hydroxide (Milk Of Magnesia 30 Ml Oral.Susp) 30 ml PO DAILY PRN PRN Reason: Constipation Melatonin (Melatonin 3 Mg Tablet) 6 mg PO BEDTIME PRN PRN Reason: Insomnia Ondansetron HCl (Ondansetron Hcl 4 Mg/2 Ml Vial) 4 mg IVPUSH Q8H PRN PRN Reason: Nausea and Vomiting Quetiapine Fumarate (Quetiapine Fumarate 25 Mg Tablet) 75 mg PO TID [facility] Last Admin: 08/05/24 10:18 Dose: 75 mg Documented By: BEVERLY Sodium Chloride (0.9 % Sodium Chloride Flush 3 Ml Syringe) 3 ml IVFLUSH QSHIFT [facility] Last Admin: 08/05/24 10:30 Dose: 3 ml Documented By: BEVERLY Thiamine HCl (Thiamine Hcl 100 Mg Tablet) 100 mg PO DAILY [facility] Trazodone HCl (Trazodone Hcl 50 Mg Tablet) 150 mg PO BEDTIME [facility] Last Admin: 08/04/24 21:49 Dose: 150 mg Documented By: ELISSA Labs 08/03/24 05:15 08/03/24 05:15 Assessment and Plan (1) Wernickes encephalopathy: Status: Acute (2) Alcohol use disorder, severe, dependence: Status: Acute (3) Cognitive disorder: Status: Acute Plan Pt is a 49-year-old male with a PMH significant for ?TBI, polysubstance use disorder on Suboxone, alcohol?use disorder, neuropathy, depression, and anxiety who initially presented to the ED 6 days prior on 07/27/2024 with confusion. Patient be admitted to the medical floor for treatment and further evaluation of question of Wernicke's encephalopathy requiring IV thiamine. 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 Mood disorder Continue bupropion, buspirone, clonidine, hydroxyzine, quetiapine, and trazodone Care team consult prior to likely psychiatric inpatient placement Full Code DVT Prophylaxis: Lovenox Pt will require a hospitalization overnight for treatment of?confusion and altered mental status concerning for Wernicke's encephalopathy that will require administration of IV thiamine. Quality Stroke Does the patient have a stroke diagnosis?: No VTE Prior VTE?: No VTE Risk Level:: Medical - moderate - high VTE Device Contraindication: Treatment Not Indicated VTE Drug Contraindication: N/A - Med Ordered
[2024-08-05] MEDS: Enoxaparin Sodium 40 MG/0.4 ML SYRINGE SUBCUT (15:12)
[2024-08-05] MEDS: hydrOXYzine HCL 50 MG TABLET PO (15:15)
[2024-08-05 16:03] VITALS: BP 110/72; PULSE 67; RESP 15; TEMP 36.8; O2SAT 97
[2024-08-05] MEDS: diphenhydrAMINE HCL 25 MG CAPSULE PO (18:08)
[2024-08-05 19:25] VITALS: BP 130/58; PULSE 80; RESP 15; TEMP 36.8; O2SAT 96
[2024-08-05] MEDS: traZODone HCL 50 MG TABLET 150 MG PO (20:37)
[2024-08-05] MEDS: Melatonin 3 MG TABLET 6 MG PO (20:37)
[2024-08-05 23:32] VITALS: BP 100/59; PULSE 60; RESP 16; TEMP 36.6; O2SAT 94
[2024-08-06] MEDS: hydrOXYzine HCL 50 MG TABLET PO ×3 (05:58→23:52)
--- NOTE | 2024-08-06 06:02 | PC.NURSE ---
patient voiced concern over jerky movements/twitching which makes it hard for him to do activities like eat, notices whole body occasionally will jerk. Says it is not that new but worse since laying in bed a lot.
[2024-08-06 08:05] VITALS: BP 152/93; PULSE 61; RESP 12; TEMP 36.2; O2SAT 96
[2024-08-06] MEDS: Gabapentin 300 MG CAPSULE PO ×2 (09:15→21:19)
[2024-08-06] MEDS: cloNIDine HCL 0.1 MG TABLET PO ×2 (09:15→21:19)
[2024-08-06] MEDS: Buprenorphine/Naloxone 8/2 mg FILM 1 FILM SUBLINGUAL (09:15)
[2024-08-06] MEDS: buPROPion HCl XL 300 MG TAB.ER.24H PO (09:15)
[2024-08-06] MEDS: QUEtiapine Fumarate 25 MG TABLET 75 MG PO ×3 (09:15→21:18)
[2024-08-06] MEDS: busPIRone HCl 10 MG TABLET 20 MG PO ×3 (09:15→21:19)
[2024-08-06] MEDS: Thiamine HCL 250 MG in 0.9 % Sodium Chloride 100 ML 208 MG IV (09:16)
--- NOTE | 2024-08-06 12:30 | HO.PM.IMPN ---
Subjective Subjective Date of Service: 08/06/24 Interval History: Seen and evaluated this morning more interactive easily confused and easy to distract No reported seizures No other overnight events Physical Exam Vital Signs: Vital Signs: Last Vital Signs Temp 97.1 F 08/06/24 08:05 Pulse 61 08/06/24 08:05 Resp 12 08/06/24 08:05 BP 152/93 H 08/06/24 08:05 Pulse Ox 96 08/06/24 08:05 O2 Del Method Room Air 08/06/24 08:05 BMI result Body Mass Index 27.3 Const: Other: Constitutional : interactive, not in distress Cardiovascular : no JVP, no lower extremity edema Respiratory : bilateral chest movement, not in resp distress Gastrointestinal: soft, lax, Non tender Skin : Warm, Dry Neurological : Alert & oriented to self and place, short term memory affected, confused about old past, No focal deficit Objective Data Active Medications Acetaminophen (Acetaminophen 325 Mg Tablet) 650 mg PO Q6H PRN PRN Reason: Pain, Mild (Pain Scale 1-3), fever or headache Buprenorphine/Naloxone (Buprenorphine/Naloxone 8/2 Mg Film) 1 film SUBLINGUAL DAILY [facility] Last Admin: 08/06/24 09:15 Dose: 1 film Documented By: JONO Bupropion HCl (Bupropion Hcl Xl 300 Mg Tab.Er.24h) 300 mg PO DAILY [facility] Last Admin: 08/06/24 09:15 Dose: 300 mg Documented By: JONO Buspirone HCl (Buspirone Hcl 10 Mg Tablet) 20 mg PO TID [facility] Last Admin: 08/06/24 09:15 Dose: 20 mg Documented By: JONO Calcium Carbonate (Calcium Carbonate 750 Mg Tab.Chew) 750 mg PO Q4H PRN PRN Reason: Heartburn Clonidine HCl (Clonidine Hcl 0.1 Mg Tablet) 0.1 mg PO BID [facility]; Protocol Last Admin: 08/06/24 09:15 Dose: 0.1 mg Documented By: JONO Diphenhydramine HCl (Diphenhydramine Hcl 25 Mg Capsule) 25 mg PO Q6H PRN PRN Reason: Rash Last Admin: 08/05/24 18:08 Dose: 25 mg Documented By: BEVERLY Enoxaparin Sodium (Enoxaparin Sodium 40 Mg/0.4 Ml Syringe) 40 mg SUBCUT Q24H [facility] Last Admin: 08/05/24 15:12 Dose: 40 mg Documented By: BEVERLY Gabapentin (Gabapentin 300 Mg Capsule) 300 mg PO BID [facility] Last Admin: 08/06/24 09:15 Dose: 300 mg Documented By: JONO Hydroxyzine HCl (Hydroxyzine Hcl 50 Mg Tablet) 50 mg PO Q4H PRN PRN Reason: Anxiety Last Admin: 08/06/24 05:58 Dose: 50 mg Documented By: BRIANNA Thiamine HCl 250 mg/ Sodium (Chloride) 102.5 mls @ 208 mls/hr IV DAILY [facility] Stop: 08/08/24 09:30 Last Infusion: 08/06/24 09:52 Dose: Infused Documented By: JONO Magnesium Hydroxide (Milk Of Magnesia 30 Ml Oral.Susp) 30 ml PO DAILY PRN PRN Reason: Constipation Melatonin (Melatonin 3 Mg Tablet) 6 mg PO BEDTIME PRN PRN Reason: Insomnia Last Admin: 08/05/24 20:37 Dose: 6 mg Documented By: ELISSA Ondansetron HCl (Ondansetron Hcl 4 Mg/2 Ml Vial) 4 mg IVPUSH Q8H PRN PRN Reason: Nausea and Vomiting Quetiapine Fumarate (Quetiapine Fumarate 25 Mg Tablet) 75 mg PO TID [facility] Last Admin: 08/06/24 09:15 Dose: 75 mg Documented By: JONO Sodium Chloride (0.9 % Sodium Chloride Flush 3 Ml Syringe) 3 ml IVFLUSH QSHIFT [facility] Last Admin: 08/06/24 07:23 Dose: Not Given Documented By: JONO Non-Admin Reason: Previously Administered Thiamine HCl (Thiamine Hcl 100 Mg Tablet) 100 mg PO DAILY [facility] Trazodone HCl (Trazodone Hcl 50 Mg Tablet) 150 mg PO BEDTIME [facility] Last Admin: 08/05/24 20:37 Dose: 150 mg Documented By: ELISSA Labs 08/03/24 05:15 08/03/24 05:15 Assessment and Plan (1) Cognitive disorder: Status: Acute (2) Wernickes encephalopathy: Status: Acute (3) Alcohol use disorder, severe, dependence: Status: Acute Plan Pt is a 49-year-old male with a PMH significant for ?TBI, polysubstance use disorder on Suboxone, alcohol?use disorder, neuropathy, depression, and anxiety who initially presented to the ED 6 days prior on 07/27/2024 with confusion. Patient be admitted to the medical floor for treatment and further evaluation of question of Wernicke's encephalopathy requiring IV thiamine. 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 Mood disorder Continue bupropion, buspirone, clonidine, hydroxyzine, quetiapine, and trazodone Care team consult prior to likely psychiatric inpatient placement Full Code DVT Prophylaxis: Lovenox Pt will require a hospitalization overnight for treatment of?confusion and altered mental status concerning for Wernicke's encephalopathy that will require administration of IV thiamine. Quality Stroke Does the patient have a stroke diagnosis?: No VTE Prior VTE?: No VTE Risk Level:: Medical - moderate - high VTE Device Contraindication: Treatment Not Indicated VTE Drug Contraindication: N/A - Med Ordered
[2024-08-06] MEDS: Enoxaparin Sodium 40 MG/0.4 ML SYRINGE SUBCUT (14:03)
[2024-08-06 15:45] VITALS: BP 99/61; PULSE 63; RESP 18; TEMP 36.4; O2SAT 96
[2024-08-06 19:30] VITALS: BP 105/66; PULSE 70; RESP 18; TEMP 36.6; O2SAT 95
[2024-08-06 21:19] VITALS: BP 105/66
[2024-08-06] MEDS: traZODone HCL 50 MG TABLET 150 MG PO (21:20)
[2024-08-06] MEDS: 0.9 % Sodium Chloride Flush 3 ML SYRINGE IVFLUSH (21:21)
[2024-08-06 23:47] VITALS: BP 110/57; PULSE 65; RESP 16; TEMP 36.4; O2SAT 93
[2024-08-07 08:01] VITALS: BP 141/92; PULSE 58; RESP 12; TEMP 36.1; O2SAT 98
[2024-08-07] MEDS: busPIRone HCl 10 MG TABLET 20 MG PO ×3 (08:48→19:54)
[2024-08-07] MEDS: cloNIDine HCL 0.1 MG TABLET PO ×2 (08:48→19:55)
[2024-08-07] MEDS: buPROPion HCl XL 300 MG TAB.ER.24H PO (08:48)
[2024-08-07] MEDS: QUEtiapine Fumarate 25 MG TABLET 75 MG PO ×3 (08:48→19:54)
[2024-08-07] MEDS: Gabapentin 300 MG CAPSULE PO ×2 (08:49→19:54)
[2024-08-07] MEDS: Thiamine HCL 250 MG in 0.9 % Sodium Chloride 100 ML 208 MG IV (08:49)
[2024-08-07] MEDS: Buprenorphine/Naloxone 8/2 mg FILM 1 FILM SUBLINGUAL (08:49)
[2024-08-07] MEDS: 0.9 % Sodium Chloride Flush 3 ML SYRINGE IVFLUSH ×2 (08:56→19:56)
--- NOTE | 2024-08-07 11:01 | HO.PM.IMPN ---
Subjective Subjective Date of Service: 08/07/24 Interval History: Seen and evaluated this morning more interactive easily confused and easy to distract No other overnight events Review of Systems Review of Systems: Yes all other systems are reviewed and are negative Physical Exam Vital Signs: Vital Signs: Last Vital Signs Temp 97.0 F 08/07/24 08:01 Pulse 58 08/07/24 08:01 Resp 12 08/07/24 08:01 BP 141/92 H 08/07/24 08:01 Pulse Ox 98 08/07/24 08:01 O2 Del Method Room Air 08/07/24 08:01 BMI result Body Mass Index 27.3 Const: Other: Constitutional : interactive, not in distress Cardiovascular : no JVP, no lower extremity edema Respiratory : bilateral chest movement, not in resp distress Gastrointestinal: soft, lax, Non tender Skin : Warm, Dry Neurological : Alert & oriented to self and place, short term memory affected, confused about old past, No focal deficit Objective Data Active Medications Acetaminophen (Acetaminophen 325 Mg Tablet) 650 mg PO Q6H PRN PRN Reason: Pain, Mild (Pain Scale 1-3), fever or headache Buprenorphine/Naloxone (Buprenorphine/Naloxone 8/2 Mg Film) 1 film SUBLINGUAL DAILY [facility] Last Admin: 08/07/24 08:49 Dose: 1 film Documented By: MACIE Bupropion HCl (Bupropion Hcl Xl 300 Mg Tab.Er.24h) 300 mg PO DAILY [facility] Last Admin: 08/07/24 08:48 Dose: 300 mg Documented By: MACIE Buspirone HCl (Buspirone Hcl 10 Mg Tablet) 20 mg PO TID [facility] Last Admin: 08/07/24 08:48 Dose: 20 mg Documented By: MACIE Calcium Carbonate (Calcium Carbonate 750 Mg Tab.Chew) 750 mg PO Q4H PRN PRN Reason: Heartburn Clonidine HCl (Clonidine Hcl 0.1 Mg Tablet) 0.1 mg PO BID [facility]; Protocol Last Admin: 08/07/24 08:48 Dose: 0.1 mg Documented By: MACIE Diphenhydramine HCl (Diphenhydramine Hcl 25 Mg Capsule) 25 mg PO Q6H PRN PRN Reason: Rash Last Admin: 08/05/24 18:08 Dose: 25 mg Documented By: BEVERLY Enoxaparin Sodium (Enoxaparin Sodium 40 Mg/0.4 Ml Syringe) 40 mg SUBCUT Q24H [facility] Last Admin: 08/06/24 14:03 Dose: 40 mg Documented By: JONO Gabapentin (Gabapentin 300 Mg Capsule) 300 mg PO BID [facility] Last Admin: 08/07/24 08:49 Dose: 300 mg Documented By: MACIE Hydroxyzine HCl (Hydroxyzine Hcl 50 Mg Tablet) 50 mg PO Q4H PRN PRN Reason: Anxiety Last Admin: 08/06/24 23:52 Dose: 50 mg Documented By: ANYA Thiamine HCl 250 mg/ Sodium (Chloride) 102.5 mls @ 208 mls/hr IV DAILY [facility] Stop: 08/08/24 09:30 Last Infusion: 08/07/24 09:48 Dose: Infused Documented By: MACIE Magnesium Hydroxide (Milk Of Magnesia 30 Ml Oral.Susp) 30 ml PO DAILY PRN PRN Reason: Constipation Melatonin (Melatonin 3 Mg Tablet) 6 mg PO BEDTIME PRN PRN Reason: Insomnia Last Admin: 08/05/24 20:37 Dose: 6 mg Documented By: ELISSA Ondansetron HCl (Ondansetron Hcl 4 Mg/2 Ml Vial) 4 mg IVPUSH Q8H PRN PRN Reason: Nausea and Vomiting Quetiapine Fumarate (Quetiapine Fumarate 25 Mg Tablet) 75 mg PO TID [facility] Last Admin: 08/07/24 08:48 Dose: 75 mg Documented By: MACIE Sodium Chloride (0.9 % Sodium Chloride Flush 3 Ml Syringe) 3 ml IVFLUSH QSHIFT [facility] Last Admin: 08/07/24 08:56 Dose: 3 ml Documented By: MACIE Thiamine HCl (Thiamine Hcl 100 Mg Tablet) 100 mg PO DAILY [facility] Trazodone HCl (Trazodone Hcl 50 Mg Tablet) 150 mg PO BEDTIME [facility] Last Admin: 08/06/24 21:20 Dose: 150 mg Documented By: ANYA Labs 08/03/24 05:15 08/03/24 05:15 Assessment and Plan (1) Wernickes encephalopathy: Status: Acute (2) Alcohol use disorder, severe, dependence: Status: Acute (3) Cognitive disorder: Status: Acute Plan Pt is a 49-year-old male with a PMH significant for ?TBI, polysubstance use disorder on Suboxone, alcohol?use disorder, neuropathy, depression, and anxiety who initially presented to the ED 6 days prior on 07/27/2024 with confusion. Patient be admitted to the medical floor for treatment and further evaluation of question of Wernicke's encephalopathy requiring IV thiamine. Cognitive impairment likely 2/2 Wernicke's\Korsakoff encephalopathy Pt with confusion, hx of heavy alcohol use CT of head negative, MRI of brain with volumetric measurements not supporting diagnosis of Alzheimer's dementia received thiamine 500 mg IV q8hr x3 days, now on thiamine 250 mg IV or IM daily x5 days B1 levels, pending consult Psychiatry for capacity evaluation OT alena MALHOTRA, scored 18/30 safe discharge planning Alcohol use disorder Addiction medicine consult, continue Gabapentin Peripheral neuropathy Gabapentin 300 mg b.i.d. Mood disorder Continue bupropion, buspirone, clonidine, hydroxyzine, quetiapine, and trazodone Care team consult , no need for psychiatric inpatient placement Full Code DVT Prophylaxis: Lovenox Pt will require a hospitalization overnight for treatment of?confusion and altered mental status concerning for Wernicke's encephalopathy that will require administration of IV thiamine and capacity evaluation Quality Stroke Does the patient have a stroke diagnosis?: No VTE Prior VTE?: No VTE Risk Level:: Medical - moderate - high VTE Device Contraindication: Treatment Not Indicated VTE Drug Contraindication: N/A - Med Ordered
[2024-08-07] MEDS: hydrOXYzine HCL 50 MG TABLET PO (11:42)
[2024-08-07] MEDS: Enoxaparin Sodium 40 MG/0.4 ML SYRINGE SUBCUT (14:42)
[2024-08-07 15:50] VITALS: BP 121/76; PULSE 53; RESP 18; TEMP 36.7; O2SAT 98
--- NOTE | 2024-08-07 16:22 | MHC.CM.PN ---
CM MET WITH PT MULTIPLE TIMES THROUGH THE WEEKEND PT WORRIED ABOUT WHERE HE WILL GO AT DC HE SAYS HE HAS HEARD BAD THINGS ABOUT [facility] HOWEVER HE ALSO DOES NOT WANT TO GO TO A SNF PT STATES HE IS WILLING TO GO TO A MCC BUT HOPES HE CAN GET A JOB WHILE THERE HE ALSO HOPES IT IS NOT [address] PT STATES HIS MOTHER WHO IS HIS POA IS WORKING ON GETTING HIS 401K M[employer] OUT AND HE PLANS TO USE THAT FOR A DOWN PAYMENT ON AN APARTMENT WHEN ASKED ABOUT ETOH USE, PT STATES HE KNOWS HE CANNOT DRINK ANY MORE HIS NEUROPATHY IS WORSENING WELL HIS MEMORY, HE SAYS HE DID WANT A PROGRAM BUT WAS TOLD IT WAS NOT APPROPRIATE BECAUSE HE HAS NOT BEEN DRINKING FOR DAYS. HE IS AWARE CM CALLED THE [facility] TODAY AND NONE OF THEM HAD OPENINGS PT DID COMPLETE A HCP NAMING HIS SISTER SEYMOUR HIS AGENT [phone]
[2024-08-07 19:50] VITALS: BP 115/73; PULSE 67; RESP 18; TEMP 36.6; O2SAT 94
[2024-08-07] MEDS: traZODone HCL 50 MG TABLET 150 MG PO (19:53)
[2024-08-07 19:55] VITALS: BP 115/73
[2024-08-07 23:32] VITALS: BP 103/67; PULSE 61; RESP 16; TEMP 36.3; O2SAT 95
[2024-08-08 07:35] VITALS: BP 121/79; PULSE 62; RESP 16; TEMP 36.3; O2SAT 97
[2024-08-08] MEDS: busPIRone HCl 10 MG TABLET 20 MG PO ×3 (08:30→21:22)
[2024-08-08] MEDS: Thiamine HCL 250 MG in 0.9 % Sodium Chloride 100 ML 208 MG IV (08:30)
[2024-08-08] MEDS: QUEtiapine Fumarate 25 MG TABLET 75 MG PO ×3 (08:30→21:22)
[2024-08-08] MEDS: cloNIDine HCL 0.1 MG TABLET PO ×2 (08:30→21:22)
[2024-08-08] MEDS: buPROPion HCl XL 300 MG TAB.ER.24H PO (08:30)
[2024-08-08] MEDS: Buprenorphine/Naloxone 8/2 mg FILM 1 FILM SUBLINGUAL (08:30)
[2024-08-08] MEDS: Gabapentin 300 MG CAPSULE PO ×2 (08:30→21:22)
[2024-08-08] MEDS: 0.9 % Sodium Chloride Flush 3 ML SYRINGE IVFLUSH (08:37)
[2024-08-08] MEDS: Enoxaparin Sodium 40 MG/0.4 ML SYRINGE SUBCUT (14:21)
--- NOTE | 2024-08-08 15:24 | P.PNIM_ITS ---
Subjective Subjective Date of Service: 08/08/24 Interval History: Seen and evaluated this morning more interactive easily confused and easy to distract No other overnight events Physical Exam 2 Vital Signs: Vital Signs: Last Vital Signs Temp 97.4 F 08/08/24 07:35 Pulse 62 08/08/24 07:35 Resp 16 08/08/24 07:35 BP 121/79 08/08/24 07:35 Pulse Ox 97 08/08/24 07:35 O2 Del Method Room Air 08/08/24 07:35 BMI result Body Mass Index 27.3 Const: Other: Constitutional : interactive, not in distress Cardiovascular : no JVP, no lower extremity edema Respiratory : bilateral chest movement, not in resp distress Gastrointestinal: soft, lax, Non tender Skin : Warm, Dry Neurological : Alert & oriented to self and place, short term memory affected, confused about old past, No focal deficit Objective Data Active Medications Acetaminophen (Acetaminophen 325 Mg Tablet) 650 mg PO Q6H PRN PRN Reason: Pain, Mild (Pain Scale 1-3), fever or headache Buprenorphine/Naloxone (Buprenorphine/Naloxone 8/2 Mg Film) 1 film SUBLINGUAL DAILY [facility] Last Admin: 08/08/24 08:30 Dose: 1 film Documented By: MACIE Bupropion HCl (Bupropion Hcl Xl 300 Mg Tab.Er.24h) 300 mg PO DAILY [facility] Last Admin: 08/08/24 08:30 Dose: 300 mg Documented By: MACIE Buspirone HCl (Buspirone Hcl 10 Mg Tablet) 20 mg PO TID [facility] Last Admin: 08/08/24 14:21 Dose: 20 mg Documented By: MACIE Calcium Carbonate (Calcium Carbonate 750 Mg Tab.Chew) 750 mg PO Q4H PRN PRN Reason: Heartburn Clonidine HCl (Clonidine Hcl 0.1 Mg Tablet) 0.1 mg PO BID [facility]; Protocol Last Admin: 08/08/24 08:30 Dose: 0.1 mg Documented By: MACIE Diphenhydramine HCl (Diphenhydramine Hcl 25 Mg Capsule) 25 mg PO Q6H PRN PRN Reason: Rash Last Admin: 08/05/24 18:08 Dose: 25 mg Documented By: BEVERLY Enoxaparin Sodium (Enoxaparin Sodium 40 Mg/0.4 Ml Syringe) 40 mg SUBCUT Q24H [facility] Last Admin: 08/08/24 14:21 Dose: 40 mg Documented By: MACIE Gabapentin (Gabapentin 300 Mg Capsule) 300 mg PO BID [facility] Last Admin: 08/08/24 08:30 Dose: 300 mg Documented By: MACIE Hydroxyzine HCl (Hydroxyzine Hcl 50 Mg Tablet) 50 mg PO Q4H PRN PRN Reason: Anxiety Last Admin: 08/07/24 11:42 Dose: 50 mg Documented By: MACIE Magnesium Hydroxide (Milk Of Magnesia 30 Ml Oral.Susp) 30 ml PO DAILY PRN PRN Reason: Constipation Melatonin (Melatonin 3 Mg Tablet) 6 mg PO BEDTIME PRN PRN Reason: Insomnia Last Admin: 08/05/24 20:37 Dose: 6 mg Documented By: ELISSA Ondansetron HCl (Ondansetron Hcl 4 Mg/2 Ml Vial) 4 mg IVPUSH Q8H PRN PRN Reason: Nausea and Vomiting Quetiapine Fumarate (Quetiapine Fumarate 25 Mg Tablet) 75 mg PO TID [facility] Last Admin: 08/08/24 14:21 Dose: 75 mg Documented By: MACIE Sodium Chloride (0.9 % Sodium Chloride Flush 3 Ml Syringe) 3 ml IVFLUSH QSHIFT [facility] Last Admin: 08/08/24 08:37 Dose: 3 ml Documented By: MACIE Thiamine HCl (Thiamine Hcl 100 Mg Tablet) 100 mg PO DAILY [facility] Trazodone HCl (Trazodone Hcl 50 Mg Tablet) 150 mg PO BEDTIME [facility] Last Admin: 08/07/24 19:53 Dose: 150 mg Documented By: ANYA Labs 08/03/24 05:15 08/03/24 05:15 Assessment and Plan (1) Wernickes encephalopathy: Status: Acute Plan Pt is a 49-year-old male with a PMH significant for ?TBI, polysubstance use disorder on Suboxone, alcohol?use disorder, neuropathy, depression, and anxiety who initially presented to the ED 6 days prior on 07/27/2024 with confusion. Patient be admitted to the medical floor for treatment and further evaluation of question of Wernicke's encephalopathy requiring IV thiamine. Cognitive impairment likely 2/2 Wernicke's\Korsakoff encephalopathy Pt with confusion, hx of heavy alcohol use CT of head negative, MRI of brain with volumetric measurements not supporting diagnosis of Alzheimer's dementia received thiamine 500 mg IV q8hr x3 days, now on thiamine 250 mg IV or IM daily x5 days B1 levels, pending consult Psychiatry for capacity evaluation OT laena MALHOTRA, scored 18/30 safe discharge planning Alcohol use disorder Addiction medicine consult, continue Gabapentin Peripheral neuropathy Gabapentin 300 mg b.i.d. Mood disorder Continue bupropion, buspirone, clonidine, hydroxyzine, quetiapine, and trazodone Care team consult , no need for psychiatric inpatient placement Full Code DVT Prophylaxis: Lovenox Pt will require a hospitalization overnight for treatment of?confusion and altered mental status concerning for Wernicke's encephalopathy that will require administration of IV thiamine and capacity evaluation Quality Stroke Does the patient have a stroke diagnosis?: No VTE Prior VTE?: No VTE Risk Level:: Medical - moderate - high VTE Device Contraindication: Treatment Not Indicated VTE Drug Contraindication: N/A - Med Ordered
[2024-08-08 15:30] VITALS: BP 96/64; PULSE 73; RESP 16; TEMP 36.3; O2SAT 96
--- NOTE | 2024-08-08 17:11 | P.CNPS_ITS ---
History of Present Illness Date of Service: 08/08/24 Chief Complaint: ?Wernicke's encephalopathy Requesting physician: Mikey Fernandez Discussed with referring provider: Yes Sources of Information: patient interviewed, chart reviewed and crisis/core team assessment reviewed Additional Sources of Information: Psychiatric consult note from 07/31 HPI Narrative: Patient is a 49-year-old male with history of TBI, severe alcohol use disorder, polysubstance abuse, on Suboxone, neuropathy, depression who initially self presented to the emergency room with confusion. Patient admitted to the medical floor for treatment for Wernicke's (with a rule out for Korsakoff's). Psychiatry consulted to assess patient's capacity for making medical decisions. Patient is alert, oriented, in good behavioral and impulse control and organized in both speech and behavior. He is polite and cooperative. Patient reviewed with greeting card writer the events leading up to this admission. Patient fully understands why he is in the hospital, what he is being treated for and volunteers that he thinks the thiamine has been significantly helpful. He says hi process things better... And shows greeting card writer his improved ability to draw clock. He explains that on the [place], when asked to draw clock he had problems, however when he lilly a clock, in the setting of a living room, with a fireplace (which he showed greeting card writer) he was able to do it. He also showed greeting card writer his hand writing which he said is still off but getting better; he explains he has dyslexia. Patient also says that the gabapentin has significantly helped his feet feel better. Patient also shared that the psychiatric medications he is on also are helpful saying they help keep me calm is hell.. 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 Patient has tried AA but said the war stories are triggering and he would like to find a different then you and suggests getting a therapist; greeting card writer discussed MAT including Disulfiram however patient is not ready for this. Miter Grinder Operator discussed his family's concern about his ability to live on his own; patient reiterated that he has done so in the past and that he will be fine. He asked greeting card writer about disability but decided himself that he enjoys work and finds it therapeutic and so prefers this course of action. Patient fully understands the risks of continuing to drink alcohol including permanent cognitive impairment and to that end reiterates he wants to be sober. Past Psychiatric History: see CARE team eval for further Hx [facility] Medical History Mood disorder Depressive disorder Substance abuse Insomnia Depression Anxiety Head injury Neuropathy Surgical History S/P appendectomy Diagnostics Vital Signs (24Hr): Vital Signs - 24 hr 08/07/24 19:50 08/07/24 19:55 08/07/24 23:32 Temperature 98 F 97.4 F Pulse Rate 67 61 Respiratory Rate 18 16 Blood Pressure 115/73 115/73 103/67 Pulse Oximetry 94 95 Oxygen Delivery Method Room Air Room Air 08/08/24 07:35 08/08/24 15:30 Temperature 97.4 F 97.3 F Pulse Rate 62 73 Respiratory Rate 16 16 Blood Pressure 121/79 96/64 Pulse Oximetry 97 96 Oxygen Delivery Method Room Air Room Air BMI result Body Mass Index 27.3 Labs 08/03/24 05:15 08/03/24 05:15 Imaging Radiology Impressions: ITS Impressions Head CT 07/31/24 14:28 IMPRESSION: No acute intracranial pathology. Electronically signed by: Rickie Mcpherson MD 07/31/2024 04:32 PM EST RP Brain MRI 07/31/24 15:16 IMPRESSION: Baseline volumetric measurements do not support a diagnosis of primary Alzheimer's dementia at the present time. Electronically signed by: Liya Perez MD 08/01/2024 02:09 PM EST RP Mental Status Exam Mental Status Exam Narrative: Pt is alert and oriented; behavior is cooperative, friendly and calm; patient is not in distress; dressed in casual attire, wearing [employer] had, scruffy, unkempt; mood is described as good and affect congruent; eye contact appropriate; Speech is initially a little latent but soon becomes normal rate, volume and prosody and not pressured; no psychomotor agitation/retardation present; thought process is organized, logical, linear and goal directed; Thought content is on tx; otherwise pertinent to relevant topics and without any delusional content, paranoid ideations or grandiosity; denies any SI/HI. There is no evidence of perceptual disturbance. Patients insight and judgment appear intact. Medications Medications Current Medications Acetaminophen (Acetaminophen 325 Mg Tablet) 650 mg PO Q6H PRN PRN Reason: Pain, Mild (Pain Scale 1-3), fever or headache Buprenorphine/Naloxone (Buprenorphine/Naloxone 8/2 Mg Film) 1 film SUBLINGUAL DAILY [facility] Last Admin: 08/08/24 08:30 Dose: 1 film Bupropion HCl (Bupropion Hcl Xl 300 Mg Tab.Er.24h) 300 mg PO DAILY [facility] Last Admin: 08/08/24 08:30 Dose: 300 mg Buspirone HCl (Buspirone Hcl 10 Mg Tablet) 20 mg PO TID [facility] Last Admin: 08/08/24 14:21 Dose: 20 mg Calcium Carbonate (Calcium Carbonate 750 Mg Tab.Chew) 750 mg PO Q4H PRN PRN Reason: Heartburn Clonidine HCl (Clonidine Hcl 0.1 Mg Tablet) 0.1 mg PO BID [facility]; Protocol Last Admin: 08/08/24 08:30 Dose: 0.1 mg Diphenhydramine HCl (Diphenhydramine Hcl 25 Mg Capsule) 25 mg PO Q6H PRN PRN Reason: Rash Last Admin: 08/05/24 18:08 Dose: 25 mg Enoxaparin Sodium (Enoxaparin Sodium 40 Mg/0.4 Ml Syringe) 40 mg SUBCUT Q24H [facility] Last Admin: 08/08/24 14:21 Dose: 40 mg Gabapentin (Gabapentin 300 Mg Capsule) 300 mg PO BID [facility] Last Admin: 08/08/24 08:30 Dose: 300 mg Hydroxyzine HCl (Hydroxyzine Hcl 50 Mg Tablet) 50 mg PO Q4H PRN PRN Reason: Anxiety Last Admin: 08/07/24 11:42 Dose: 50 mg Magnesium Hydroxide (Milk Of Magnesia 30 Ml Oral.Susp) 30 ml PO DAILY PRN PRN Reason: Constipation Melatonin (Melatonin 3 Mg Tablet) 6 mg PO BEDTIME PRN PRN Reason: Insomnia Last Admin: 08/05/24 20:37 Dose: 6 mg Ondansetron HCl (Ondansetron Hcl 4 Mg/2 Ml Vial) 4 mg IVPUSH Q8H PRN PRN Reason: Nausea and Vomiting Quetiapine Fumarate (Quetiapine Fumarate 25 Mg Tablet) 75 mg PO TID [facility] Last Admin: 08/08/24 14:21 Dose: 75 mg Sodium Chloride (0.9 % Sodium Chloride Flush 3 Ml Syringe) 3 ml IVFLUSH QSHIFT [facility] Last Admin: 08/08/24 17:07 Dose: Not Given Thiamine HCl (Thiamine Hcl 100 Mg Tablet) 100 mg PO DAILY [facility] Trazodone HCl (Trazodone Hcl 50 Mg Tablet) 150 mg PO BEDTIME [facility] Last Admin: 08/07/24 19:53 Dose: 150 mg Allergies Allergies Allergy/AdvReac Type Severity Reaction Status Date / Time No Known Allergies Allergy Verified 07/27/24 17:10 Assessment & Plan Assessment & Plan (1) Wernickes encephalopathy: Status: Acute Code(s): E51.2 - Wernicke's encephalopathy (2) Alcohol use disorder, severe, dependence: Status: Acute Code(s): F10.20 - Alcohol dependence, uncomplicated Plan Patient is a 49-year-old male with history of TBI, severe alcohol use disorder, polysubstance abuse, on Suboxone, neuropathy, depression who initially self presented to the emergency room with confusion. Patient admitted to the medical floor for treatment for Wernicke's (with a rule out for Korsakoff's). Psychiatry consulted to assess patient's capacity for making medical decisions. Patient is alert, oriented, in good behavioral and impulse control and organized in both speech and behavior. He is polite and cooperative. Patient reviewed with greeting card writer the events leading up to this admission. Patient fully understands why he is in the hospital, what he is being treated for and volunteers that he thinks the thiamine has been significantly helpful. He says hi process things better... And shows greeting card writer his improved ability to draw clock. He explains that on the [place], when asked to draw clock he had problems, however when he lilly a clock, in the setting of a living room, with a fireplace (which he showed greeting card writer) he was able to do it. He also showed greeting card writer his hand writing which he said is still off but getting better; he explains he has dyslexia. Patient also says that the gabapentin has significantly helped his feet feel better. Patient also shared that the psychiatric medications he is on also are helpful saying they help keep me calm is hell.. 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 Patient has tried AA but said the war stories are triggering and he would like to find a different then you and suggests getting a therapist; greeting card writer discussed MAT including Disulfiram however patient is not ready for this. Miter Grinder Operator discussed his family's concern about his ability to live on his own; patient reiterated that he has done so in the past and that he will be fine. He asked greeting card writer about disability but decided himself that he enjoys work and finds it therapeutic and so prefers this course of action. Patient fully understands the risks of continuing to drink alcohol including permanent cognitive impairment and to that end reiterates he wants to be sober Impression/plan: Patient currently presents with full capacity to make medical decisions for himself Patient is organized in speech and behavior. He understands his illness, treatments, the necessity of treatment and fully appreciates the ramifications of foregoing treatment and relapse with alcohol/substance abuse. Patient wants to continue treatment and appreciates the help received. Patient demonstrates adequate understanding of the challenges of navigating sobriety and living on his own in the community. He of course remains at high risk for relapse and the negative consequences that naturally follow; however this has been a chronic struggle for him for decades, during which time patient has been able to function well enough on his own in the community. At this time and with the information available. greeting card writer can not conclude that he can not continue to do so. Total time managing care of this patient today ____ minutes. Patient educated on: diagnosis, medication risk/benefits, substance abuse, therapeutic strategies and medical condition Informed Consent: understands
[2024-08-08] MEDS: hydrOXYzine HCL 50 MG TABLET PO (19:12)
[2024-08-08 21:19] VITALS: BP 106/61; PULSE 83; RESP 16; TEMP 36.3; O2SAT 95
[2024-08-08] MEDS: traZODone HCL 50 MG TABLET 150 MG PO (21:22)
[2024-08-09] MEDS: 0.9 % Sodium Chloride Flush 3 ML SYRINGE IVFLUSH ×2 (00:14→09:39)
[2024-08-09 07:13] VITALS: BP 113/61; PULSE 62; RESP 16; TEMP 36.4; O2SAT 97
[2024-08-09] MEDS: QUEtiapine Fumarate 25 MG TABLET 75 MG PO (09:38)
[2024-08-09] MEDS: buPROPion HCl XL 300 MG TAB.ER.24H PO (09:39)
[2024-08-09] MEDS: cloNIDine HCL 0.1 MG TABLET PO (09:39)
[2024-08-09] MEDS: Thiamine HCL 100 MG TABLET PO (09:39)
[2024-08-09] MEDS: Buprenorphine/Naloxone 8/2 mg FILM 1 FILM SUBLINGUAL (09:39)
[2024-08-09] MEDS: Gabapentin 300 MG CAPSULE PO (09:39)
[2024-08-09] MEDS: busPIRone HCl 10 MG TABLET 20 MG PO (09:39)
--- NOTE | 2024-08-09 09:40 | MHC.CM.PN ---
Per MD, patient deemed to have capacity and is medically cleared for dc. Patient requested assistance w/ [facility] placement. There is bed availability @ [facility] and patient is agreeable to plan. Will dc to [facility] via [employer] ~12pm. RN aware.
--- NOTE | 2024-08-09 12:17 | PM.DS ---
DS: Providers Provider Date of Service: 08/09/24 Date of admission: 08/02/24 13:38 Date of discharge: 08/09/24 Primary care physician: Unknown Physician Consults: 07/27/24 17:19 Consult to Care Team Stat Comment: Reason for consultation: disoreientation 07/28/24 10:54 Consult to Case Management Stat Comment: 07/28/24 21:43 Consult to Psychiatry Stat Consulting Provider: [facility] Psych Covering Reason for consultation: nos psychosis 08/01/24 02:53 Consult to Neurology Routine Consulting Provider: [facility] Reason for consultation: Confusion Has provider been notified: No 08/02/24 08:10 Addiction Medicine Routine Consulting Provider: Addiction Covering Reason for consultation: wernicke AUD 08/07/24 11:04 Consult to Psychiatry Routine Consulting Provider: [facility] Psych Covering Reason for consultation: level of competency, capacity evaluation. DS: Diagnosis Discharge Diagnosis (1) Wernickes encephalopathy: Status: Acute (2) Alcohol use disorder, severe, dependence: Status: Acute (3) Cognitive disorder: Status: Acute DS: Summary Hospital Course Hospital Course: Admission note HPI Pt is a 49-year-old male with a PMH significant for ?TBI, polysubstance use disorder on Suboxone, alcohol?use disorder, neuropathy, depression, and anxiety who initially presented to the ED 6 days prior on 07/27/2024 with confusion. According to ED provider patient was released from [facility] yesterday and stated he went to a gas station and ?I was standing in the rain, I really stated been 2 hours, I did not know what I supposed to be doing. Patient initially reported he thought that he was released from [facility] to soon which should happen before he claims due to insurance issues. Patient was initially placed in physician observation awaiting possible inpatient psychiatric placement. Was seen and evaluated by psychiatry who noted horizontal nystagmus, unsteady gait, and confusion, concerning for Wernicke's encephalopathy. CT of head negative, MRI showing baseline volumetric measurements that do not support a diagnosis of primary Alzheimer's dementia. Was seen and evaluated by Neurology prior to MRI who initially recommended IV thiamine 100 mg IV x3 days. However post MRI, Up-to-Date recommendations are for thiamine 500 mg IV t.i.d. x2 days then thiamine 250 mg IV or IM x5 days. Patient seen and evaluated in his room where he is resting comfortably in bed. Patient is alert and oriented x3 and partly to situation. Patient reports he ?knows parts? of what brought him to the hospital, though tells a very long, rambling, and not entirely coherent story. Is a poor historian. Reports history of TBI where he fell on the concrete striking his head. Reports multiple other head strikes of much less clear etiology. Patient states he has been to [facility] at least twice in the past, including being discharged the day of presentation to the ED. states a long history of drinking ?quite a lot of alcohol. Reports drinking since he was 9 years old, and significant for many other substances including [place] sprays, glue, and paint thinner. 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 Pt complains of peripheral neuropathy but denies all other acute medical complaints. No chest pain/pressure, palpitations. Denies fever, chills, nausea, vomiting, abdominal pain. No shortness a breath or difficulty breathing. Patient be admitted to the medical floor for treatment and further evaluation of question of Wernicke's encephalopathy requiring IV thiamine. Hospital course The patient was evaluated for worsening Cognitive impairment likely secondary to Wernicke's\Korsakoff encephalopathy with reported long history of alcoholism. CT of head negative for any acute findings, MRI of brain with volumetric measurements not supporting diagnosis of Alzheimer's dementia but also did not show corpus callosum expected findings in wernicke. Seen by neurology and psychiatry who recommended to treat as a case of Wernicke encephalopathy. He received thiamine 500 mg IV q8hr x3 days, then thiamine 250 mg IV or IM daily x5 days before switching to PO Thiamine. B1 levels still pending. OT did CORI, he scored 18/30. Care plan discussed with his HCP as he will be discharged to alf. For history of Alcohol use disorder the addiction medicine team was consulted and recommended to continue Gabapentin on discharge which is also helping with his Peripheral neuropathy. For history of Mood disorder he was continued on home dose bupropion, buspirone, clonidine, hydroxyzine, quetiapine, and trazodone. The care team consulted and felt no need for psychiatric inpatient placement. Evaluated by psychiatrist for capacity. It was felt he has capacity to take medical decisions but he will need social and family support as outpatient. Discharge plan Continue Thiamine daily Continue Gabapentin 300 mg twice daily Continue Suboxone as prescribed Take the rest of your home medications Follow with PCP for refills and adjustments of your medications Complete Abstinence from Alcohol Time Attestation Discharge Coordination Time (in mins): 41 Quality: Safe Use of Opioids Does Pt have an Active Cancer Diagnosis on the Problem List?: No Quality: Stroke Does the patient have a stroke diagnosis?: No Physical Exam Vital Signs: Vital Signs: Last Vital Signs Temp 97.5 F 08/09/24 07:13 Pulse 62 08/09/24 07:13 Resp 16 08/09/24 07:13 BP 113/61 08/09/24 07:13 Pulse Ox 97 08/09/24 07:13 O2 Del Method Room Air 08/09/24 07:13 BMI result Body Mass Index 27.3 Const: Other: Constitutional : interactive, not in distress Cardiovascular : no JVP, no lower extremity edema Respiratory : bilateral chest movement, not in resp distress Gastrointestinal: soft, lax, Non tender Skin : Warm, Dry Neurological : Alert & oriented to self and place, short term memory affected, can get easily confused about past, No focal deficit DS: Data Data Completed and Pending Completed studies during hospitalization [Text1]: Procedures Detoxification Services for Substance Abuse Treatment (01/07/24) Imaging MRI - head: Radiologist's impression: ITS Impressions Head CT 07/31/24 14:28 IMPRESSION: No acute intracranial pathology. Electronically signed by: Rickie Mcpherson MD 07/31/2024 04:32 PM EST RP Brain MRI 07/31/24 15:16 IMPRESSION: Baseline volumetric measurements do not support a diagnosis of primary Alzheimer's dementia at the present time. Electronically signed by: Liya Perez MD 08/01/2024 02:09 PM EST RP Discharge Plan Discharge Anticipated Discharge Date/Time: 08/09/24 11:22 Patient Disposition: Assisted Discharge Diagnosis: Wernicke encephalopathy Referrals: Physician,Unknown J [Primary Care Provider] - 1 Week Discharge Medications: New gabapentin 300 mg Capsule 300 mg PO BID 90 Days Qty: 180 0RF thiamine mononitrate (vit B1) 100 mg Tablet 100 mg PO DAILY Qty: 90 0RF clonidine HCl 0.1 mg Tablet 0.1 mg PO BID Qty: 60 0RF Protocol: Hold for SBP< HOLD for SBP < : 90 Continued buprenorphine-naloxone 8-2 mg film 1 film sublingual DAILY 7 Days Qty: 7 0RF quetiapine 25 mg tablet 75 mg PO TID 30 Days Qty: 0 0RF hydroxyzine pamoate 50 mg Capsule 50 mg PO Q4H PRN (Reason: Anxiety) Qty: 60 0RF trazodone 150 mg tablet 150 mg PO BEDTIME 30 Days Qty: 0 0RF buspirone 10 mg tablet 20 mg PO TID 30 Days Qty: 180 0RF bupropion HCl 300 mg tablet extended release 24 hr 300 mg PO DAILY 30 Days Qty: 90 0RF Discontinued clonidine HCl 0.1 mg tablet 0.1 mg PO BID Discharge Orders: Discharge Order (Routine); Ordered 08/09/24 Ordered By: Mikey Fernandez Diet: Advance to usual diet Activity on Discharge: As tolerated Stand Alone Forms: Patient Portal Discharge page Print Language: French Care Plan Goals: Continue Thiamine daily Continue Gabapentin 300 mg twice daily Continue Suboxone as prescribed Take the rest of your home medications Follow with PCP for refills and adjustments of your medications Complete Abstinence from Alcohol Health Concerns: Cognitive impairment Plan of Treatment: Thiamine supplement Gabapentin Assessment: as above
[2024-08-11 17:58] LABS: Vitamin B1 >1200 nmol/L (8-30)
== END 2024-08-09 13:03 | disposition home or self-care (01) | DRG 421 ==
LOC: HO.ED 08-02 10:36 → HO.EDOVER 08-02 13:39 → HO.S3 08-02 19:09
PROVIDERS: Emergency Medicine; Family Medicine; Internal Medicine; Physician Assistant; Social Worker; Admitting Provider Student in an Organized Health Care Education/Training Program; Emergency Provider Emergency Medicine Emergency Medical Services; Visit Provider Student in an Organized Health Care Education/Training Program
DX: E51.2 Wernicke's encephalopathy (principal); F10.20 Alcohol dependence, uncomplicated; F11.20 Opioid dependence, uncomplicated; F19.10 Other psychoactive substance abuse, uncomplicated; F39 Unspecified mood [affective] disorder; G62.9 Polyneuropathy, unspecified; Z59.02 Unsheltered homelessness; Z79.899 Other long term (current) drug therapy
CPT/HCPCS: 36415; 70450; 70551; 76377; 80048; 80053; 80076; 80307; 82140; 82607; 82746; 83735; 84425; 84443; 85025; 85027; 86592; 87389; 93005; 97165; 99285; J1650; J3411; S9485

== ENCOUNTER → 2024-07-27 18:18 | Outpatient (BNV) | payer OTHER, SELFPAY | PROVIDERS: Emergency Provider Internal Medicine; Visit Provider Psychiatry & Neurology Psychiatry | DX: F10.20 Alcohol dependence, uncomplicated (principal); E51.2 Wernicke's encephalopathy | CPT/HCPCS: 99232; 99283 ==

== ENCOUNTER → 2024-07-27 18:18 | Outpatient (BNV) | payer OTHER, SELFPAY | PROVIDERS: Emergency Provider Internal Medicine; Visit Provider Internal Medicine | DX: E51.2 Wernicke's encephalopathy (principal); F10.20 Alcohol dependence, uncomplicated; F09 Unspecified mental disorder due to known physiological condition | CPT/HCPCS: 99222; 99232; 99239 ==

== ENCOUNTER → 2024-07-27 18:18 | Outpatient (BNV) | payer OTHER, SELFPAY | PROVIDERS: Emergency Provider Internal Medicine; Visit Provider Psychiatry & Neurology Neurology | DX: F10.259 Alcohol dependence with alcohol-induced psychotic disorder, unspecified (principal) | CPT/HCPCS: 99222 ==

== ENCOUNTER → 2024-08-01 06:00 | Outpatient (BNV) | payer OTHER, SELFPAY | PROVIDERS: Emergency Provider Internal Medicine; Visit Provider Internal Medicine | DX: R00.1 Bradycardia, unspecified (principal) | CPT/HCPCS: 93010 ==

== ENCOUNTER → 2024-08-02 13:38 | Outpatient (BNV) | payer OTHER, SELFPAY | PROVIDERS: Admitting Provider Student in an Organized Health Care Education/Training Program; Emergency Provider Emergency Medicine Emergency Medical Services; Visit Provider Nurse Practitioner Psychiatric/Mental Health | DX: F10.20 Alcohol dependence, uncomplicated (principal); E51.2 Wernicke's encephalopathy | CPT/HCPCS: 99233 ==

== ENCOUNTER 2024-08-09 20:45 | Emergency (ER) | payer OTHER, SELFPAY ==
[2024-08-09 20:49] VITALS: BP 130/79; PULSE 72; O2SAT 100
[2024-08-09 20:50] VITALS: BP 138/81; PULSE 61; RESP 16; TEMP 36.9; O2SAT 95; BMI 25.1
--- NOTE | 2024-08-09 22:12 | PC.NURSE ---
Patient changed over into hospital attire by ALYSSA Lundy, belongings secured in water closet in [facility] d/t large quantity of personal items. Patient's meds sent to pharmacy.
[2024-08-09 22:46] VITALS: BP 140/91; PULSE 57; RESP 20; TEMP 36.7; O2SAT 94
--- NOTE | 2024-08-09 23:32 | PC.NURSE ---
assumed care of pt at 2300. pt is resting comfortably on the stretcher in 18H, awaiting to be seen by ED provider.
[2024-08-10] VITALS (7 sets, daily range): BP systolic 95–118; BP diastolic 57–88; PULSE 66–78; RESP 16–18; TEMP 36.6–36.9; O2SAT 96–100
--- NOTE | 2024-08-10 02:15 | ED_ITS ---
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 with history of TBI polysubstance abuse on Suboxone depression and anxiety just discharged from [place] floor [facility] [place] [facility] [place] [facility] where she could not manage had sent back here as it was 0 2 good fit for him patient does not have any place to stay does not want to stay out in the cold patient is brought back here to be re- evaluate by case management for inpatient placement Related Data Previous Rx's ?Medication ?Instructions ?Recorded buprenorphine 8 mg-naloxone 2 mg 1 film sublingual DAILY 7 days #7 08/09/24 sublingual film ea bupropion HCl 300 mg 24 hr tablet, 300 mg PO DAILY 30 days #90 tabs 08/09/24 extended release buspirone 10 mg tablet 20 mg (2 x 10 mg) PO TID 30 days 08/09/24 #180 tabs clonidine HCl 0.1 mg tablet 0.1 mg PO BID #60 tabs 08/09/24 gabapentin 300 mg capsule 300 mg PO BID 90 days #180 caps 08/09/24 hydroxyzine pamoate 50 mg capsule 50 mg PO Q4H PRN Anxiety #60 caps 08/09/24 quetiapine 25 mg tablet 75 mg (3 x 25 mg) PO TID 30 days 08/09/24 #0 tabs thiamine mononitrate (vit B1) 100 100 mg PO DAILY #90 tabs 08/09/24 mg tablet trazodone 150 mg tablet 150 mg PO BEDTIME 30 days #0 tabs 08/09/24 Allergies Allergy/AdvReac Type Severity Reaction Status Date / Time No Known Allergies Allergy Verified 08/09/24 21:00 Review of Systems 2 Review of Systems: Yes Unobtainable due to mental status PMFSH Past Medical History Medical History Mood disorder Depressive disorder Substance abuse Insomnia Depression Anxiety Head injury Neuropathy Surgical History S/P appendectomy Social History Social History Household Members: None Housing: Homeless Alcohol intake: former Comment: 1:1 sitter Patient Tobacco Use Status: Tobacco use Unknown Tobacco use type: Cigarette Smoked in Last 30 Days: No Use of substances other than those prescribed or required for medical reasons: No Advance Directives: No Advance Directives Information Provided: No Advance Directives Date on File: 01/07/24 Do you have a plan to hurt others: No Plan service: No Physical Exam ED Vital Signs: Vital Signs - 24 hr 08/09/24 20:50 08/09/24 22:46 08/10/24 04:38 Temperature 98.4 F 98.1 F 97.9 F Pulse Rate 61 57 74 Respiratory Rate 16 20 18 Blood Pressure 138/81 140/91 H 118/88 Pulse Oximetry 95 94 100 Oxygen Delivery Method Room Air Room Air Room Air BMI result Body Mass Index 25.1 Appearance: Alert. Oriented X2. No acute distress. Confused with poor thought process Eyes: PERRLA, No Nystagmus ENT: Pharynx normal. Oral Mucosa moist Neck: Normal inspection. Neck supple. CVS: Normal heart rate and rhythm. Pulses normal. Respiratory: No respiratory distress. Equal air entry bilateral, no wheezing/rales/rhonchi Abdomen: Soft and nontender. Bowel sounds are present, no mass palpable, no CVA tenderness Skin: Skin warm and dry. Normal skin color. Normal skin turgor. Extremities: No lower extremity edema. No calf tenderness Neuro: Oriented X 2. No motor deficit. No sensory deficit.No cerebellar signs , cranial nerves II-XII intact Medications Administered Discontinued Medications Generic Name Dose Route Start Last Admin Trade Name Freq PRN Reason Stop Dose Admin Lorazepam 2 mg 08/10/24 04:29 08/10/24 04:35 Lorazepam 1 Mg Tablet PO 08/10/24 04:30 2 mg ONCE ONE Administration Thiamine HCl 100 mg 08/10/24 02:16 08/10/24 04:35 Thiamine Hcl 100 Mg Tablet PO 08/10/24 02:17 100 mg ONCE ONE Administration Medical Decision Making Medical Decision Making MDM Narrative: Patient with encephalopathy likely wernicks and polysubstance abuse and alcohol abuse unable to be placed in [place] [facility] where was discharged yesterday from the hospital will get case management involved for placement Lab Data MDM Lab Attestation statement: I reviewed the patient's lab results. 08/10/24 02:34 08/10/24 02:34 Labs: Lab Results 08/10/24 08/10/24 Range/Units 02:34 04:30 WBC 5.6 (4.8-10.8) X10*3/uL RBC 3.89 L (4.60-5.80) X10*6/uL Hgb 12.7 L (14.0-18.0) g/dl Hct 36.3 L (42.0-52.0) % MCV 93.3 (80.0-98.0) fL MCH 32.6 (27.0-33.0) pg MCHC 35.0 (31.0-36.0) g/dl RDW 13.3 (11.0-16.0) % Plt Count 145 L (160-400) X10*3/uL MPV 10.5 (9.4-12.4) fL Immature Gran % (Auto) 0.4 (0.0-0.4) % Neut % (Auto) 51.5 (45-73) % Lymph % (Auto) 31.7 (20-40) % Garvin % (Auto) 12.1 H (2-11) % Eos % (Auto) 3.4 (0-4) % Baso % (Auto) 0.9 (0-2) % Lymph # (Auto) 1.8 (1.2-4.9) X10*3/uL Garvin # (Auto) 0.7 (0.1-1.2) X10*3/uL Eos # (Auto) 0.2 (0.0-0.4) X10*3/uL Baso # (Auto) 0.1 (0.0-0.2) X10*3/uL Abs Immat Gran (auto) 0.02 (0.00-0.03) X10*3/uL Absolute Neuts (auto) 2.9 (2.0-8.3) x10*3/uL Absolute Nucleated RBC 0.000 (0.0-0.012) X10*3/uL Nucleated RBC % (auto) 0.0 (0.0-0.2) /100WBC Sodium 143 (135-145) mmol/L Potassium 3.9 (3.3-5.1) mmol/L Chloride 102 (96-108) mmol/L Carbon Dioxide 31 H (22-29) mmol/L Anion Gap 14 (12-20) BUN 15 (9-16) mg/dL Creatinine 1.10 (0.5-1.4) mg/dL Estim Creat Clear Calc 81.2 Estimated GFR > 60 Random Glucose 105 (60-115) mg/dL Calcium 10.0 D (8.4-10.2) mg/dL Magnesium 2.0 (1.6-2.6) mg/dL Total Bilirubin 0.3 (0.0-1.0) mg/dL AST 26 (5-37) U/L ALT 27 (0-40) U/L Alkaline Phosphatase 56 (39-117) U/L Total Protein 7.1 (6.5-8.0) g/dL Albumin 4.3 (3.5-5.0) g/dL Urine Color Yellow Urine Appearance Clear Urine pH 7.5 (5.0-9.0) Ur Specific [place] 1.010 (1.005-1.025) Urine Protein Negative (Neg-Trace) mg/dL Urine Glucose (UA) Negative (Negative) mg/dL Urine Ketones Negative (Negative) mg/dL Urine Blood Negative (Negative) Urine Nitrite Negative (Negative) Ur Leukocyte Esterase Negative (Negative) Urine Opiates Screen Not Detected (Not Detect) Ur Buprenorphine Scrn Positive H (Not Detect) ng/mL Ur Oxycodone Screen Not Detected (Not Detect) ng/mL Urine Methadone Screen Not Detected (Not Detect) ng/mL Urine Fentanyl Screen Not Detected (Not Detect) Ur Barbiturates Screen Not Detected (Not Detect) Ur Phencyclidine Scrn Not Detected (Not Detect) Ur Amphetamines Screen Not Detected (Not Detect) U Benzodiazepines Scrn Not Detected (Not Detect) Urine Cocaine Screen Not Detected (Not Detect) U Marijuana (THC) Screen Not Detected (Not Detect) Discharge Plan Discharge Clinical Impression: Cognitive disorder, Wernickes encephalopathy, Alcohol use disorder, severe, dependence Patient Disposition: Still a Patient Prescriptions: No Action buprenorphine-naloxone 8-2 mg film 1 film sublingual DAILY 7 Days Qty: 7 0RF gabapentin 300 mg Capsule 300 mg PO BID 90 Days Qty: 180 0RF thiamine mononitrate (vit B1) 100 mg Tablet 100 mg PO DAILY Qty: 90 0RF quetiapine 25 mg tablet 75 mg PO TID 30 Days Qty: 0 0RF hydroxyzine pamoate 50 mg Capsule 50 mg PO Q4H PRN (Reason: Anxiety) Qty: 60 0RF trazodone 150 mg tablet 150 mg PO BEDTIME 30 Days Qty: 0 0RF buspirone 10 mg tablet 20 mg PO TID 30 Days Qty: 180 0RF bupropion HCl 300 mg tablet extended release 24 hr 300 mg PO DAILY 30 Days Qty: 90 0RF clonidine HCl 0.1 mg Tablet 0.1 mg PO BID Qty: 60 0RF Protocol: Hold for SBP< HOLD for SBP < : 90 Print Language: Serbian
[2024-08-10 02:37] LABS: MANUAL DIFF FLAG NO
[2024-08-10 02:38] LABS: Basophils Absolute Auto 0.1 X10*3/uL (0.0-0.2); Basophils Percent Auto 0.9 % (0-2); Eosinophils Absolute Auto 0.2 X10*3/uL (0.0-0.4); Eosinophils Percent Auto 3.4 % (0-4); Hematocrit 36.3 % (42.0-52.0); Hemoglobin 12.7 g/dl (14.0-18.0); Imm Gran Abs Auto 0.02 X10*3/uL (0.00-0.03); Imm Gran Pct Auto 0.4 % (0.0-0.4); Lymphocytes Absolute Auto 1.8 X10*3/uL (1.2-4.9); Lymphocytes Percent Auto 31.7 % (20-40); Mean Corpuscular Hemoglobin 32.6 pg (27.0-33.0); Mean Corpuscular Volume 93.3 fL (80.0-98.0); Mean Platelet Volume 10.5 fL (9.4-12.4); Monocytes Absolute Auto 0.7 X10*3/uL (0.1-1.2); Monocytes Percent Auto 12.1 % (2-11); Neutrophils Absolute Auto 2.9 x10*3/uL (2.0-8.3); Neutrophils Percent Auto 51.5 % (45-73); Platelet Count 145 X10*3/uL (160-400); Red Blood Count 3.89 X10*6/uL (4.60-5.80); Red Cell Distribution Width 13.3 % (11.0-16.0); White Blood Count 5.6 X10*3/uL (4.8-10.8)
[2024-08-10 02:56] LABS: Alanine Aminotransferase 27 U/L (0-40); Albumin Level 4.3 g/dL (3.5-5.0); Alkaline Phosphatase 56 U/L (39-117); Anion Gap 14 (12-20); Aspartate Amino Transferase 26 U/L (5-37); Bilirubin Total 0.3 mg/dL (0.0-1.0); Blood Urea Nitrogen 15 mg/dL (9-16); Carbon Dioxide 31 mmol/L (22-29); Chloride 102 mmol/L (96-108); Creatinine Clr Calc Pharmacy 81.2; Estimated Glomerular Filt Rate > 60; Glucose Random 105 mg/dL (60-115); Potassium 3.9 mmol/L (3.3-5.1); Sodium 143 mmol/L (135-145); Total Protein 7.1 g/dL (6.5-8.0)
--- NOTE | 2024-08-10 04:17 | PC.NURSE ---
plan for pt to see case management for placement/ possible prison care. pt recently admitted for wernike encephalopathy, seen by psych to determine capacity. pt is homeless and is cognitively delayed, upon discharge from [facility] yesterday, was brought to [facility]. however [facility] then called PD/ems stating pt is not a good fit for the [facility] as he cannot properly care for self. therefore pt referred to CM by ED provider for further d/c planning. pt is calm, cooperative.
[2024-08-10] MEDS: Thiamine HCL 100 MG TABLET PO ×2 (04:35→13:23)
[2024-08-10] MEDS: LORazepam 1 MG TABLET 2 MG PO (04:35)
[2024-08-10 04:37] LABS: Appearance Urine Clear; Color Urine Yellow; Glucose Urine UA Negative (Negative); Leukocyte Esterase Urine Negative (Negative); Nitrite Urine Negative (Negative); PH 7.5 (5.0-9.0); Urine Blood Negative (Negative); Urine Ketones Negative (Negative); Urine Protein Negative (Neg-Trace)
[2024-08-10 04:47] LABS: Amphetamine Screen Urine Not Detected (Not Detect); Barbiturates, Urine Not Detected (Not Detect); Benzodiazepines Screen Urine Not Detected (Not Detect); Buprenorphine Scr Positive (Not Detect); Cannabinoid Screen Urine Not Detected (Not Detect); Cocaine Screen Urine Not Detected (Not Detect); Fentanyl, urine Not Detected (Not Detect); Methadone Screen, Urine Not Detected (Not Detect); Opiate Screen Urine Not Detected (Not Detect); Oxycodone Screen Urine Not Detected (Not Detect); Phencyclidine Screen Urine Not Detected (Not Detect)
--- NOTE | 2024-08-10 06:39 | PC.NURSE ---
pt is ambulatory to and from bathroom with a steady gait. drinking franki yamil in no apparent distress
--- NOTE | 2024-08-10 09:51 | MHC.CM.ED ---
Addendum entered by Luda Hillman 08/10/24 13:52: Referral also made to [facility]. Addendum entered by Luda Hillman 08/10/24 12:40: Received notification that patient does not have a SNF mcc benefit with his insurance. Referral made to [facility]. Original Note: Received case management consult overnight. Patient was d/[facility]'d from [facility] on 08/09. Patient returned to ER because [facility] did not feel he was a good fit for their facility. Patient has [employer]. Will attempt to find mcc care in SNF. Continue to monitor for d/c needs.
[2024-08-10 11:05] LABS: COVID-19 Test Negative (Negative); IDNOW Serial# 08D9AD1C
--- NOTE | 2024-08-10 12:26 | PHA.MEDREC ---
Pharmacy Consult ? Medication Reconciliation Pharmacy has completed the medication reconciliation. Tried talking to patient but he did not want to talk to anyone right now and was a bit agitated when I went to overflow. Patient was just discharged 08/09 and I was able to confirm med rec based on that information.
[2024-08-10] MEDS: buPROPion HCl XL 300 MG TAB.ER.24H PO (13:23)
[2024-08-10] MEDS: QUEtiapine Fumarate 25 MG TABLET 75 MG PO ×2 (13:23→20:50)
[2024-08-10] MEDS: cloNIDine HCL 0.1 MG TABLET PO ×2 (13:24→20:49)
[2024-08-10] MEDS: Gabapentin 300 MG CAPSULE PO ×2 (13:24→20:48)
[2024-08-10] MEDS: Buprenorphine/Naloxone 8/2 mg FILM 1 FILM SUBLINGUAL (13:24)
--- NOTE | 2024-08-10 14:51 | PC.NURSE ---
Patient sitting comfortably on edge of bed using table to draw. Patient denies any complaints is calm and cooperative at this time.
[2024-08-10] MEDS: busPIRone HCl 10 MG TABLET 20 MG PO ×2 (15:22→20:50)
[2024-08-10] MEDS: hydrOXYzine HCL 50 MG TABLET PO ×2 (15:25→20:48)
[2024-08-10] MEDS: traZODone HCL 50 MG TABLET 150 MG PO (20:48)
--- NOTE | 2024-08-10 21:13 | PC.NURSE ---
patient medicated with bedtime medications, resting comfortably in bed locked and in lowest position with call spaulding within reach
--- NOTE | 2024-08-10 23:01 | PC.NURSE ---
Patient requested diet franki yamil with turkey sandwich, provided and tolerated well.
[2024-08-11 00:31] VITALS: BP 110/67; PULSE 72; RESP 16; TEMP 36.1; O2SAT 97
[2024-08-11 02:22] VITALS: BP 171/79; PULSE 61; RESP 18; TEMP 36.6; O2SAT 99
[2024-08-11] MEDS: hydrOXYzine HCL 50 MG TABLET PO ×2 (02:24→21:19)
[2024-08-11 06:27] VITALS: BP 142/87; PULSE 67; RESP 17; TEMP 36.6; O2SAT 98
--- NOTE | 2024-08-11 07:00 | PC.NURSE ---
Report taken from SABI Garcia and Paris RN
[2024-08-11] MEDS: QUEtiapine Fumarate 25 MG TABLET 75 MG PO ×3 (08:33→21:02)
[2024-08-11] MEDS: Thiamine HCL 100 MG TABLET PO (08:34)
[2024-08-11] MEDS: cloNIDine HCL 0.1 MG TABLET PO ×2 (08:34→21:03)
[2024-08-11] MEDS: busPIRone HCl 10 MG TABLET 20 MG PO ×3 (08:35→21:03)
[2024-08-11] MEDS: Buprenorphine/Naloxone 8/2 mg FILM 1 FILM SUBLINGUAL (08:35)
[2024-08-11] MEDS: Gabapentin 300 MG CAPSULE PO ×2 (08:35→21:02)
--- NOTE | 2024-08-11 09:27 | PC.NURSE ---
Awaiting Wellbutrin per pharmacy at this time.
[2024-08-11] MEDS: buPROPion HCl XL 300 MG TAB.ER.24H PO (10:40)
--- NOTE | 2024-08-11 12:44 | MHC.CM.ED ---
Addendum entered by Luda Hillman 08/11/24 13:10: Spoke with SABI Rahman of [facility]. They did not have a problem with patient. Patient told staff at the correction that he thought the was going to a rehab hospital not a correction. Original Note: Patient remains in ER. Waiting to hear from [facility] and [facility]. Received notification from Vernell CELESTIN that patient's sister, Taylor called and requested referral to [facility] in [place]. T/W spoke with central intake via telephone at [phone]. Clinical info will be faxed to [phone]. Continue to monitor for d/c needs.
[2024-08-11 14:34] VITALS: BP 92/60; PULSE 71; RESP 16; TEMP 36.1; O2SAT 97
[2024-08-11 15:08] VITALS: BP 99/64; PULSE 67; RESP 18; TEMP 36.2; O2SAT 97
--- NOTE | 2024-08-11 15:13 | PC.NURSE ---
Pt.'s BP soft at 99/64. BIOMEDICAL EQUIPMENT SPECIALIST notified- wondering if Buspar, Seroquel or both should be withheld due to hypotension.
--- NOTE | 2024-08-11 15:44 | PC.NURSE ---
Per VIR[place] Prajapati to give 15:00 meds.
--- NOTE | 2024-08-11 16:20 | MHC.CM.ED ---
Pt does have a HCP on file. Made 08/05/2024. HCP, Taylor Hung (sister) [phone]
[2024-08-11] MEDS: traZODone HCL 50 MG TABLET 150 MG PO (21:02)
[2024-08-11 21:05] VITALS: BP 127/86; PULSE 78; RESP 14; TEMP 36.4; O2SAT 97
[2024-08-11] MEDS: Melatonin 3 MG TABLET 6 MG PO (22:23)
[2024-08-12 04:09] VITALS: BP 119/82; PULSE 64; RESP 12; TEMP 36.4; O2SAT 96
[2024-08-12] MEDS: buPROPion HCl XL 300 MG TAB.ER.24H PO (08:46)
[2024-08-12] MEDS: Gabapentin 300 MG CAPSULE PO ×2 (08:46→20:30)
[2024-08-12] MEDS: busPIRone HCl 10 MG TABLET 20 MG PO ×3 (08:46→20:30)
[2024-08-12] MEDS: Thiamine HCL 100 MG TABLET PO (08:46)
[2024-08-12] MEDS: QUEtiapine Fumarate 25 MG TABLET 75 MG PO ×3 (08:46→20:30)
[2024-08-12 08:47] VITALS: BP 105/68
[2024-08-12] MEDS: cloNIDine HCL 0.1 MG TABLET PO ×2 (08:47→20:30)
[2024-08-12] MEDS: Buprenorphine/Naloxone 8/2 mg FILM 1 FILM SUBLINGUAL (08:48)
[2024-08-12 08:50] VITALS: BP 105/68; PULSE 78; RESP 16; TEMP 36.1; O2SAT 97
[2024-08-12] MEDS: hydrOXYzine HCL 50 MG TABLET PO (12:39)
--- NOTE | 2024-08-12 12:41 | PC.NURSE ---
patient a&o to person/place, pt requesting atarax- pt medicated per request with prn medication. rr equal/non labored- pt speaking in full sentences, vss, eating and drinking while sitting at bedside drawing. pt has no complaints of pain or discomfort, can make his needs known, ambulatory with steady gait, awaiting placement, call spaulding within reach, will continue plan of care
[2024-08-12 14:00] VITALS: BP 121/62; PULSE 76; RESP 16; TEMP 36.6; O2SAT 97
[2024-08-12 20:30] VITALS: BP 107/70; PULSE 67; RESP 16; TEMP 36.8; O2SAT 98
[2024-08-12] MEDS: traZODone HCL 50 MG TABLET 150 MG PO (20:30)
[2024-08-13] MEDS: hydrOXYzine HCL 50 MG TABLET PO ×3 (02:41→22:40)
[2024-08-13 08:48] VITALS: BP 146/86; PULSE 80; RESP 18; TEMP 36.9; O2SAT 98
[2024-08-13] MEDS: Gabapentin 300 MG CAPSULE PO ×2 (09:05→21:08)
[2024-08-13] MEDS: cloNIDine HCL 0.1 MG TABLET PO ×2 (09:06→21:15)
[2024-08-13] MEDS: busPIRone HCl 10 MG TABLET 20 MG PO ×3 (09:06→21:08)
[2024-08-13] MEDS: Buprenorphine/Naloxone 8/2 mg FILM 1 FILM SUBLINGUAL (09:07)
[2024-08-13] MEDS: QUEtiapine Fumarate 25 MG TABLET 75 MG PO ×3 (09:09→21:08)
[2024-08-13] MEDS: buPROPion HCl XL 300 MG TAB.ER.24H PO (09:45)
[2024-08-13] MEDS: Thiamine HCL 100 MG TABLET PO (09:45)
[2024-08-13 14:00] VITALS: BP 130/84; PULSE 80; RESP 17; TEMP 36.9; O2SAT 97
--- NOTE | 2024-08-13 20:04 | PC.NURSE ---
pt has been up walking with steady gait, pt is back to bed and has mult gingeral cans at the bedside that he uses as a aid to help him not to want to drink alcohol. pt calm and cooperative skin pink warm and dry no s/s of distress.
[2024-08-13 20:11] VITALS: BP 114/64; PULSE 83; RESP 16; TEMP 36.8; O2SAT 98
[2024-08-13] MEDS: traZODone HCL 50 MG TABLET 150 MG PO (21:08)
[2024-08-13 21:15] VITALS: BP 114/64
--- NOTE | 2024-08-13 21:28 | PC.NURSE ---
pt family member wants to be called back Andrés Hung [phone] to talk about a referral to [facility] for placement.
--- NOTE | 2024-08-13 22:41 | PC.NURSE ---
pt feeling anxiouse unable to sleep, treated with po med, lights out, env for sleeping,
[2024-08-13 23:40] VITALS: BP 114/64; PULSE 83; RESP 16; TEMP 36.8
[2024-08-14] VITALS (8 sets, daily range): BP systolic 98–171; BP diastolic 62–96; PULSE 67–82; RESP 12–18; TEMP 36.7–37.2; O2SAT 95–97
--- NOTE | 2024-08-14 04:11 | PC.NURSE ---
pt out of bed to bathroom steady gait. Pt requesting anxiety medication.
[2024-08-14] MEDS: hydrOXYzine HCL 50 MG TABLET PO ×2 (04:18→14:47)
--- NOTE | 2024-08-14 04:19 | PC.NURSE ---
pt has chronic generalized body pain. no new pain noted.
--- NOTE | 2024-08-14 06:43 | PC.NURSE ---
pt has been medicated thur the night every 4 hours for anxiety. pt also drinks multiple diet gingerales states it relaxes him to hear it opening, Pt family member called during the night and pt was present for the call and was ok to talk with his sister. pt ambulates to bathroom on his own, calm and cooperative thur the night.
[2024-08-14] MEDS: QUEtiapine Fumarate 25 MG TABLET 75 MG PO ×3 (09:25→22:18)
[2024-08-14] MEDS: Gabapentin 300 MG CAPSULE PO ×2 (09:25→22:18)
[2024-08-14] MEDS: Buprenorphine/Naloxone 8/2 mg FILM 1 FILM SUBLINGUAL (09:25)
[2024-08-14] MEDS: busPIRone HCl 10 MG TABLET 20 MG PO ×3 (09:25→22:18)
[2024-08-14] MEDS: buPROPion HCl XL 300 MG TAB.ER.24H PO (09:25)
[2024-08-14] MEDS: Thiamine HCL 100 MG TABLET PO (09:25)
[2024-08-14] MEDS: cloNIDine HCL 0.1 MG TABLET PO ×2 (09:25→22:19)
--- NOTE | 2024-08-14 13:14 | MHC.CM.ED ---
Patient remains in ER overflow. Attempted to reach Josh andujar [facility] via telephone at [phone]. Left voicemail requesting return telephone call. Reached out to Tolu Whitfield. Spoke with Najma. Clinical info refaxed as requested. Continue to monitor for d/c needs.
[2024-08-14] MEDS: traZODone HCL 50 MG TABLET 150 MG PO (22:18)
--- NOTE | 2024-08-14 22:25 | PC.NURSE ---
Pt medicated as per NOV. Call spaulding within reach. Plan of care ongoing
--- NOTE | 2024-08-15 03:32 | PC.NURSE ---
Resumed care of pt at 0315. PT appears to be sleeping- respirations even and unlabored, chest wall rising. Safety precautions in place, call spaulding within reach. Plan of care ongoing? ?
[2024-08-15 05:27] VITALS: BP 106/67; PULSE 70; RESP 19; O2SAT 92
--- NOTE | 2024-08-15 06:00 | PC.NURSE ---
PT appears to be sleeping, respirations even and unlabored plan of care ongoing.
[2024-08-15 07:54] VITALS: BP 132/83; PULSE 66; RESP 17; TEMP 37; O2SAT 98
--- NOTE | 2024-08-15 09:19 | PC.NURSE ---
called pharmacy for meds not available in pyxis - Welbutrin 300mg and 100mg Thiamine
[2024-08-15] MEDS: hydrOXYzine HCL 50 MG TABLET PO ×2 (09:21→15:31)
[2024-08-15] MEDS: Buprenorphine/Naloxone 8/2 mg FILM 1 FILM SUBLINGUAL (09:21)
[2024-08-15] MEDS: busPIRone HCl 10 MG TABLET 20 MG PO ×3 (09:21→21:13)
[2024-08-15] MEDS: cloNIDine HCL 0.1 MG TABLET PO ×2 (09:22→21:13)
[2024-08-15] MEDS: QUEtiapine Fumarate 25 MG TABLET 75 MG PO ×3 (09:22→21:14)
[2024-08-15] MEDS: Gabapentin 300 MG CAPSULE PO ×2 (09:22→21:14)
[2024-08-15] MEDS: Thiamine HCL 100 MG TABLET PO (10:05)
[2024-08-15] MEDS: buPROPion HCl XL 300 MG TAB.ER.24H PO (10:05)
--- NOTE | 2024-08-15 10:05 | MHC.RECOVSUP ---
Binder Chainstitch Note Patient seen in over-flow ED. Consult requested for?Harm Reduction Discussion? Current substance use reported by patient: ETOH? Type?Amount: Beer, Hand-hygiene assistant, amount unspecified Currently on KUN or MOUD: Suboxone Plan:?Had 1 hour open discussion with pt related to his situation and alcoholism in particular. Will see pt on to follow up.
--- NOTE | 2024-08-15 10:10 | MHC.CM.ED ---
Addendum entered by Luda Hillman 08/15/24 12:39: Attempted to reach out to [facility]. Left a message requesting a return telephone call. Attempted to reach out to Josh at [facility]. No answer. No ability to leave a message. Original Note: Patient remains in ER overflow. Spoke with Cheryl of [facility] via telephone at [phone]. They are reviewing clinicals now and confirming if [facility] has any availability. Clinical updates will be faxed. Continue to monitor for d/c needs.
[2024-08-15 15:31] VITALS: BP 105/68; PULSE 73; RESP 16; TEMP 37; O2SAT 95
--- NOTE | 2024-08-15 18:25 | MHC.CM.ED ---
CM met with patient at his request. Updated patient on bed search at [facility] and at [facility]. Pt aware that clinicals were requested and sent to facilities. Pt states he cannot live with his mother. Pt is aware that if all avenues for placement are exhausted, then he would be discharged to a skilled nursing. CM working for safe disposition for this patient.
[2024-08-15 21:12] VITALS: BP 130/79; PULSE 68; RESP 16; TEMP 37; O2SAT 94
[2024-08-15 21:13] VITALS: BP 130/79
[2024-08-15] MEDS: traZODone HCL 50 MG TABLET 150 MG PO (21:13)
[2024-08-15] MEDS: Melatonin 3 MG TABLET 6 MG PO (21:14)
[2024-08-16 05:46] VITALS: BP 150/82; PULSE 65; RESP 16; TEMP 37; O2SAT 96
[2024-08-16] MEDS: cloNIDine HCL 0.1 MG TABLET PO ×2 (08:53→22:00)
[2024-08-16] MEDS: buPROPion HCl XL 300 MG TAB.ER.24H PO (08:53)
[2024-08-16] MEDS: busPIRone HCl 10 MG TABLET 20 MG PO ×3 (08:53→22:00)
[2024-08-16] MEDS: hydrOXYzine HCL 50 MG TABLET PO ×2 (08:53→14:51)
[2024-08-16] MEDS: Gabapentin 300 MG CAPSULE PO ×2 (08:53→22:11)
[2024-08-16] MEDS: Buprenorphine/Naloxone 8/2 mg FILM 1 FILM SUBLINGUAL (08:54)
[2024-08-16] MEDS: QUEtiapine Fumarate 25 MG TABLET 75 MG PO ×3 (08:54→22:00)
[2024-08-16] MEDS: Thiamine HCL 100 MG TABLET PO (08:54)
--- NOTE | 2024-08-16 09:36 | MHC.CM.ED ---
Patient remains in ER overflow. Received telephone call from Corbin of [facility]. He feels patient would not be appropriate for their facility. Spoke with intake at [facility]. They have not reviewed clinicals yet because they have limited bed availability. They will review if bed is available. Still waiting for return telephone call from [facility] and [facility]. Continue to monitor for d/c needs.
[2024-08-16 14:00] VITALS: BP 107/63; PULSE 18; RESP 69; TEMP 36.8; O2SAT 96
--- NOTE | 2024-08-16 20:15 | PC.NURSE ---
cm with pt. Plan of care ongoing.
--- NOTE | 2024-08-16 20:56 | MHC.CM.ED ---
CM met with patient. His HCP, Taylor was on the telephone. CM explained that [facility] does not have bed availability at this time. Explained that they have clinicals. Explained that CM is still trying to reach out to [facility] and [facility] regarding bed availability. Taylor, who is not the patient's sister, she is a friend, is unable to have the patient stay with her. She is insistent that he go to [facility] and that she feels people are discriminating against him because he is homeless. CM reassured HCP that there is no discrimination, and that JOVITA is working to find a safe discharge plan for this patient. Also explained that Baltazar his HCP is not invoked, so his HCP will not make decisions for him. He can certainly speak with her, but CM will speak with him. Pt requests that CM speak with his mother, Nida Mckeon ([phone]). CM will reach out to the patient's mother tomorrow.
[2024-08-16 21:12] VITALS: BP 141/86; PULSE 73; RESP 15; TEMP 37; O2SAT 97
[2024-08-16 22:00] VITALS: BP 141/86
[2024-08-16] MEDS: traZODone HCL 50 MG TABLET 150 MG PO (22:00)
[2024-08-16] MEDS: Melatonin 3 MG TABLET 6 MG PO (22:00)
--- NOTE | 2024-08-16 22:17 | PC.NURSE ---
Pt medicated per mar Pt requested and given drink Plan of care ongoing.
[2024-08-17] MEDS: hydrOXYzine HCL 50 MG TABLET PO (00:31)
--- NOTE | 2024-08-17 00:34 | PC.NURSE ---
Pt requested and medicated per mar. Plan of care ongoing.
[2024-08-17 06:00] VITALS: BP 132/85; PULSE 64; RESP 16; TEMP 37; O2SAT 96
[2024-08-17 08:07] VITALS: BP 133/87; PULSE 60; RESP 18; TEMP 36.6; O2SAT 97
[2024-08-17] MEDS: buPROPion HCl XL 300 MG TAB.ER.24H PO (08:24)
[2024-08-17] MEDS: Gabapentin 300 MG CAPSULE PO ×2 (08:24→20:51)
[2024-08-17] MEDS: Buprenorphine/Naloxone 8/2 mg FILM 1 FILM SUBLINGUAL (08:25)
[2024-08-17] MEDS: cloNIDine HCL 0.1 MG TABLET PO ×2 (08:25→20:49)
[2024-08-17] MEDS: Thiamine HCL 100 MG TABLET PO (08:25)
[2024-08-17] MEDS: QUEtiapine Fumarate 25 MG TABLET 75 MG PO ×3 (08:25→20:49)
[2024-08-17] MEDS: busPIRone HCl 10 MG TABLET 20 MG PO ×3 (08:25→20:52)
--- NOTE | 2024-08-17 08:25 | PC.NURSE ---
Pt. medicated per MAR. Denies pain and/or complaints at this time. Plan of care ongoing.
--- NOTE | 2024-08-17 09:00 | PC.NURSE ---
Per JOVITA Lares: This pt. has capacity. Trying to see if [facility] will accept pt. at sister's request. Also have referrals out trying to find a room at both [facility] and [facility].
--- NOTE | 2024-08-17 10:44 | MHC.RECOVSUP ---
Shipping Weigher Note Per Aura Palacio's suggestion, I followed up with pt to see what specifics he remembered of our conversation recalled from 2 days ago. He was able to tell me personal relatable details we had discussed, as well as the general tone and direction of the conversation we had, and the approximate duration of it. I have now spent 1 hour on Wednesday and approximately 40 minutes speaking with him today. I plan on going back tomorrow to see what he recalls of both conversations.
[2024-08-17 14:00] VITALS: BP 144/94; PULSE 64; RESP 18; TEMP 37; O2SAT 96
--- NOTE | 2024-08-17 14:08 | MHC.CM.ED ---
Patient remains in ER overflow. Spoke with Krista at [facility]. They don't have a bed available right now but requested updated clinical in case a bed opens up. Clinical info faxed as requested. Attempted to speak to Mary at [facility]. Left a message requesting return telephone call. Spoke with Josh at [facility]. Josh requested application be refaxed. Refaxed as asked. Continue to monitor for d/c needs.
[2024-08-17 20:49] VITALS: BP 133/86
[2024-08-17] MEDS: Melatonin 3 MG TABLET 6 MG PO (20:49)
[2024-08-17] MEDS: traZODone HCL 50 MG TABLET 150 MG PO (20:51)
[2024-08-17 20:52] VITALS: BP 133/86; PULSE 64; RESP 16; TEMP 36.5; O2SAT 98
[2024-08-18 06:27] VITALS: BP 125/68; PULSE 65; RESP 16; TEMP 36.7; O2SAT 97
[2024-08-18 09:09] VITALS: BP 119/72; PULSE 79; RESP 15; TEMP 36.9; O2SAT 99
[2024-08-18] MEDS: Thiamine HCL 100 MG TABLET PO (09:33)
[2024-08-18] MEDS: busPIRone HCl 10 MG TABLET 20 MG PO ×3 (09:33→20:26)
[2024-08-18] MEDS: Gabapentin 300 MG CAPSULE PO ×2 (09:33→20:28)
[2024-08-18] MEDS: Buprenorphine/Naloxone 8/2 mg FILM 1 FILM SUBLINGUAL (09:33)
[2024-08-18] MEDS: buPROPion HCl XL 300 MG TAB.ER.24H PO (09:34)
[2024-08-18] MEDS: cloNIDine HCL 0.1 MG TABLET PO ×2 (09:34→20:25)
[2024-08-18] MEDS: QUEtiapine Fumarate 25 MG TABLET 75 MG PO ×3 (09:34→20:26)
--- NOTE | 2024-08-18 11:07 | MHC.RECOVSUP ---
Law Firm Consultant Note Patient seen in ED overflow 6? Harm Reduction Discussion? Other:pt's short term memory is showing signs of great improvement. Able to recall details from previous conversations and insert them back into our current conversation as topic starters or to relate things.
[2024-08-18 13:52] VITALS: BP 115/76; PULSE 65; RESP 18; TEMP 37.1; O2SAT 96
--- NOTE | 2024-08-18 13:57 | MHC.CM.ED ---
Patient remains in ER overflow. Waiting to hear from [facility] and [facility]. Attempted to reach out to Gregorio Trujillo. Left voicemail requesting return telephone call. Continue to monitor for d/c needs.
--- NOTE | 2024-08-18 18:17 | PC.NURSE ---
Pt calm and cooperative today, denied complaint. vitals as noted. He ambulated frequently on unit and to the BR. Meal and med compliant. Transferring back to ED with his belongings per bed management....
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
[2024-08-18 20:23] VITALS: BP 116/69; PULSE 61; RESP 20; TEMP 36.8; O2SAT 95
[2024-08-18] MEDS: Melatonin 3 MG TABLET 6 MG PO (20:26)
[2024-08-18] MEDS: traZODone HCL 50 MG TABLET 150 MG PO (20:26)
--- NOTE | 2024-08-18 23:30 | PC.NURSE ---
Assumed care of pt at 2300. PT appears to be sleeping respirations even and unlabored. VSS. Plan of care on going
[2024-08-19 06:10] VITALS: BP 124/86; PULSE 60; RESP 16; TEMP 36.6; O2SAT 97
[2024-08-19] MEDS: QUEtiapine Fumarate 25 MG TABLET 75 MG PO ×3 (09:59→20:05)
[2024-08-19] MEDS: Buprenorphine/Naloxone 8/2 mg FILM 1 FILM SUBLINGUAL (09:59)
--- NOTE | 2024-08-19 09:59 | PC.NURSE ---
pharmacy to send wellbutrin dose
[2024-08-19] MEDS: Gabapentin 300 MG CAPSULE PO ×2 (10:00→20:06)
[2024-08-19] MEDS: busPIRone HCl 10 MG TABLET 20 MG PO ×3 (10:00→20:05)
[2024-08-19] MEDS: Thiamine HCL 100 MG TABLET PO (10:00)
[2024-08-19 10:01] VITALS: BP 120/71
[2024-08-19] MEDS: cloNIDine HCL 0.1 MG TABLET PO ×2 (10:01→20:06)
[2024-08-19] MEDS: buPROPion HCl XL 300 MG TAB.ER.24H PO (10:37)
--- NOTE | 2024-08-19 11:01 | PC.NURSE ---
Assumed care of patient at 0700. Patient alert and oriented. VSS. OOB ambulating independently. Plan of care ongoing.
[2024-08-19 15:33] VITALS: BP 105/69; PULSE 65; RESP 16; TEMP 36.7; O2SAT 96
[2024-08-19] MEDS: hydrOXYzine HCL 50 MG TABLET PO (15:38)
[2024-08-19 19:48] VITALS: BP 102/64; PULSE 80; RESP 16; TEMP 36.9; O2SAT 97
[2024-08-19] MEDS: Melatonin 3 MG TABLET 6 MG PO (20:05)
[2024-08-19] MEDS: traZODone HCL 50 MG TABLET 150 MG PO (20:05)
[2024-08-19 20:06] VITALS: BP 102/62
[2024-08-20] VITALS (7 sets, daily range): BP systolic 107–120; BP diastolic 69–75; PULSE 63–78; RESP 16–18; TEMP 36.4–36.6; O2SAT 96–99
[2024-08-20] MEDS: hydrOXYzine HCL 50 MG TABLET PO ×2 (04:31→17:45)
[2024-08-20] MEDS: buPROPion HCl XL 300 MG TAB.ER.24H PO (08:14)
[2024-08-20] MEDS: busPIRone HCl 10 MG TABLET 20 MG PO ×3 (08:15→20:41)
[2024-08-20] MEDS: QUEtiapine Fumarate 25 MG TABLET 75 MG PO ×3 (08:15→20:41)
[2024-08-20] MEDS: cloNIDine HCL 0.1 MG TABLET PO ×2 (08:16→20:39)
[2024-08-20] MEDS: Thiamine HCL 100 MG TABLET PO (08:16)
[2024-08-20] MEDS: Gabapentin 300 MG CAPSULE PO ×2 (08:16→20:39)
[2024-08-20] MEDS: Buprenorphine/Naloxone 8/2 mg FILM 1 FILM SUBLINGUAL (08:17)
--- NOTE | 2024-08-20 13:29 | PC.NURSE ---
assumed care of pt @ 1100, pt A&o x4, ambulating independently in exam room- pt offers no complaints at this time
--- NOTE | 2024-08-20 15:57 | PC.NURSE ---
pt medicated per NOV- pt ate 100% of lunch provided with gingerale per request. no other complaints offered at this time
--- NOTE | 2024-08-20 18:09 | PC.NURSE ---
pt medicated per MAR for c/o anxiety
--- NOTE | 2024-08-20 19:31 | MHC.EDTECH ---
this tc assumed care @1900, at this time the pt requested a diet gingerale in which this tech provided one can to the pt. no other needs made aware at this time
[2024-08-20] MEDS: Melatonin 3 MG TABLET 6 MG PO (20:39)
[2024-08-20] MEDS: traZODone HCL 50 MG TABLET 150 MG PO (20:41)
--- NOTE | 2024-08-20 21:41 | PC.NURSE ---
this nurse rounded on pt- gingerale placed at bedside. pt appears to be sleeping at this time. Eyes closed, rise and fall of chest noted, no apparent distress
[2024-08-21 06:00] VITALS: BP 109/65; PULSE 65; RESP 16; TEMP 36.8; O2SAT 96
--- NOTE | 2024-08-21 09:33 | MHC.CM.ED ---
Addendum entered by Luda Hillman 08/21/24 16:12: Received voicemail from [facility] stating facility did not feel he was a good fit for their unit. Patient's mother, Nida, made aware via telephone. Addendum entered by Luda Hillman 08/21/24 12:15: Spoke with Gregorio Trujillo. Per Gregorio Trujillo, patient is too young for their facility. Addendum entered by Luda Hillman 08/21/24 11:47: Attempted to reach out to Mary from [facility]. Left message requesting return telephone call. Attempted to reach [place] of [facility]. Left a message requesting return telephone call. Original Note: Patient remains in ER. Received telephone call from patient's mother, Nida. Nida was speaking to Andres Wilkes from an off-site facility of [facility]. T/W spoke with Andres Wilkes via telephone at [phone]. Verbal clinical provided to Andres via telephone. Clinical info will be faxed to [facility] at [phone]. Continue to monitor for d/c needs.
[2024-08-21] MEDS: Gabapentin 300 MG CAPSULE PO ×2 (09:59→21:05)
[2024-08-21] MEDS: busPIRone HCl 10 MG TABLET 20 MG PO ×3 (09:59→21:06)
[2024-08-21] MEDS: Buprenorphine/Naloxone 8/2 mg FILM 1 FILM SUBLINGUAL (09:59)
[2024-08-21] MEDS: cloNIDine HCL 0.1 MG TABLET PO ×2 (09:59→21:05)
[2024-08-21] MEDS: QUEtiapine Fumarate 25 MG TABLET 75 MG PO ×3 (09:59→21:05)
[2024-08-21] MEDS: Thiamine HCL 100 MG TABLET PO (09:59)
[2024-08-21] MEDS: buPROPion HCl XL 300 MG TAB.ER.24H PO (10:40)
--- NOTE | 2024-08-21 10:56 | MHC.RECOVSUP ---
Desk Reporter Note Patient seen in ED 20 Consult requested for?Harm Reduction Discussion? Current substance use reported by patient: ETOH Plan:? Will continue to meet with patient to provide support and add some variety to his monotonous days. Patient's memory seems to be clearing up, and our conversations are gaining depth.
[2024-08-21 15:31] VITALS: BP 108/64; PULSE 61; RESP 18; TEMP 36.4; O2SAT 96
[2024-08-21] MEDS: hydrOXYzine HCL 50 MG TABLET PO (15:32)
[2024-08-21 20:02] VITALS: BP 134/80; PULSE 60; RESP 18; TEMP 36.6; O2SAT 99
[2024-08-21] MEDS: traZODone HCL 50 MG TABLET 150 MG PO (21:05)
[2024-08-21] MEDS: Melatonin 3 MG TABLET 6 MG PO (21:06)
[2024-08-21 22:36] VITALS: BP 110/73; PULSE 64; RESP 14; TEMP 36.7; O2SAT 94
--- NOTE | 2024-08-21 22:36 | PC.NURSE ---
provided pt with new wrist band, unable to scan previous one d/t band writing fading
[2024-08-22] MEDS: hydrOXYzine HCL 50 MG TABLET PO ×4 (03:38→21:47)
[2024-08-22 08:06] VITALS: BP 103/62; PULSE 83; RESP 18; TEMP 37.4; O2SAT 96
[2024-08-22] MEDS: busPIRone HCl 10 MG TABLET 20 MG PO ×3 (09:22→21:47)
[2024-08-22] MEDS: buPROPion HCl XL 300 MG TAB.ER.24H PO (09:22)
[2024-08-22] MEDS: Buprenorphine/Naloxone 8/2 mg FILM 1 FILM SUBLINGUAL (09:22)
[2024-08-22] MEDS: QUEtiapine Fumarate 25 MG TABLET 75 MG PO ×3 (09:23→21:47)
[2024-08-22] MEDS: Gabapentin 300 MG CAPSULE PO ×2 (09:23→21:47)
[2024-08-22] MEDS: cloNIDine HCL 0.1 MG TABLET PO ×2 (09:23→21:47)
[2024-08-22] MEDS: Thiamine HCL 100 MG TABLET PO (09:23)
--- NOTE | 2024-08-22 09:49 | MHC.CM.ED ---
Met with patient and Damian from recovery team. Damian will submit CSS application with patient. Continue to monitor for d/c needs.
--- NOTE | 2024-08-22 10:17 | MHC.RECOVSUP ---
Saddle And Harness Maker Note Met with pt to discuss options for continuum of care, he agreed that a CSS was he best choice, with the goal of following through to sober living after completion. Will begin submitting referrals.
--- NOTE | 2024-08-22 10:55 | MHC.RECOVSUP ---
Assurance Manager Note Elisa from [facility] central intake said the wait time for CSS [facility] referrals is 1-3 months. Tomorrow I will submit referrals for [facility] and [facility], and follow up with [facility] CSS. I do not believe the wait time is what was stated and that what was given was a textbook answer.
[2024-08-22 14:37] VITALS: BP 102/74; PULSE 65; RESP 18; TEMP 37.1; O2SAT 96
[2024-08-22] MEDS: traZODone HCL 50 MG TABLET 150 MG PO (21:47)
[2024-08-22] MEDS: Melatonin 3 MG TABLET 6 MG PO (21:47)
[2024-08-22 21:51] VITALS: BP 118/80; PULSE 67; RESP 16; TEMP 35.9; O2SAT 95
--- NOTE | 2024-08-22 22:33 | PC.NURSE ---
patient ambulates independently to and from bathroom. requesting franki yamil. given bedtime medications. pt offers no current complaints.
[2024-08-23] MEDS: hydrOXYzine HCL 50 MG TABLET PO ×2 (02:30→15:08)
[2024-08-23 06:14] VITALS: BP 136/81; PULSE 62; RESP 16; TEMP 36.6; O2SAT 98
[2024-08-23] MEDS: busPIRone HCl 10 MG TABLET 20 MG PO ×3 (09:06→20:42)
[2024-08-23] MEDS: Thiamine HCL 100 MG TABLET PO (09:06)
[2024-08-23] MEDS: buPROPion HCl XL 300 MG TAB.ER.24H PO (09:06)
[2024-08-23] MEDS: QUEtiapine Fumarate 25 MG TABLET 75 MG PO ×3 (09:06→20:41)
[2024-08-23] MEDS: cloNIDine HCL 0.1 MG TABLET PO ×2 (09:06→20:41)
[2024-08-23] MEDS: Gabapentin 300 MG CAPSULE PO ×2 (09:06→20:42)
[2024-08-23] MEDS: Buprenorphine/Naloxone 8/2 mg FILM 1 FILM SUBLINGUAL (09:07)
--- NOTE | 2024-08-23 10:16 | PC.NURSE ---
patient has been resting quietly in his room, ate breakfast this morning. patient is alert and oriented. ambulatory with steady gait. patient medicated per NOV, takes meds whole with water. patient has been drawing on paper, had consult with disaster recovery specialist this morning.
--- NOTE | 2024-08-23 10:36 | MHC.RECOVSUP ---
Technology Sales Specialist Note Patient seen in [facility] Consult requested for?CSS referral? Plan:? Patient referred to [facility] CSS (F: [phone]), and [facility] CSS (F: [phone]) today, again submitted [facility] CSS today since I was told it was never received..
[2024-08-23 14:18] VITALS: BP 125/75; PULSE 69; RESP 13; TEMP 36.7; O2SAT 99
--- NOTE | 2024-08-23 15:02 | PC.NURSE ---
pt resting quietly in exam room, calm, cooperative, and pleasant- no exit seeking behaviors at present. pt ate 100% of lunch- female visitor at bedside, pt awating placement
[2024-08-23 20:41] VITALS: BP 125/75
[2024-08-23] MEDS: traZODone HCL 50 MG TABLET 150 MG PO (20:42)
[2024-08-23] MEDS: Melatonin 3 MG TABLET 6 MG PO (20:43)
--- NOTE | 2024-08-23 22:46 | PC.NURSE ---
pt medicated per MAR- pt appears to be sleeping at this time. Pt eyes closed, respirations even and unlabored. rise and fall of chest noted
[2024-08-24 04:16] VITALS: BP 129/85; PULSE 60; RESP 16; TEMP 36.7; O2SAT 98
--- NOTE | 2024-08-24 04:19 | MHC.EDTECH ---
This tech took over care of pt at 0410AM ,patient ambulated with a steady gait to the bathroom,pt is resting,watching TV,call spaulding in reach
[2024-08-24] MEDS: hydrOXYzine HCL 50 MG TABLET PO ×2 (04:58→20:33)
--- NOTE | 2024-08-24 06:23 | PC.NURSE ---
pt resting comfortably throughout the night, woke up confused about time of day, requested that he be woken up from now on when meals are delivered, sick of eat cold meals because he is sleeping, or if anyone wants to talk at any time
--- NOTE | 2024-08-24 09:08 | MHC.RECOVRN ---
F/U on disposition of CSS beds: [facility]-Left message with Lola at 9:00AM requesting a call back [facility]-they will send for review today. We need to call back tomorrow to [phone] to see if approved and if approved pt. will need to call daily until bed available. [facility]-Currently no beds available. They will review referral if bed becomes available and call us back.
[2024-08-24] MEDS: Thiamine HCL 100 MG TABLET PO (10:07)
[2024-08-24] MEDS: QUEtiapine Fumarate 25 MG TABLET 75 MG PO ×3 (10:07→20:30)
[2024-08-24] MEDS: busPIRone HCl 10 MG TABLET 20 MG PO ×3 (10:07→20:31)
[2024-08-24] MEDS: Gabapentin 300 MG CAPSULE PO ×2 (10:07→20:30)
[2024-08-24] MEDS: cloNIDine HCL 0.1 MG TABLET PO ×2 (10:07→20:28)
[2024-08-24] MEDS: buPROPion HCl XL 300 MG TAB.ER.24H PO (10:07)
[2024-08-24] MEDS: Buprenorphine/Naloxone 8/2 mg FILM 1 FILM SUBLINGUAL (10:08)
[2024-08-24 13:03] VITALS: BP 103/64; PULSE 74; RESP 19; O2SAT 95
[2024-08-24 16:26] VITALS: BP 115/76; PULSE 64; RESP 16; TEMP 36.8; O2SAT 98
--- NOTE | 2024-08-24 17:47 | MHC.CM.ED ---
CM spoke with patient. Reviewed plan. Aware that Recovery is waiting on the [facility]. Aware that [facility] and [facility], but in [place] are checking about beds. [place] reviewing. Pt will need to call daily regarding bed availability. Pt again requesting [facility]. CM explained that [facility] has denied admission, stating that he was not a good fit. He has been there in the past. Pt is upset about [facility]. CM explained to him that it's best he knows that there is no bed at [facility], so he does not keep thinking that he will go there. CM will review lack of bed offers with CM management tomorrow and seek guidance for any other options for discharge. Family is not able to offer him a place to live.
[2024-08-24] MEDS: traZODone HCL 50 MG TABLET 150 MG PO (20:27)
[2024-08-24 20:28] VITALS: BP 106/72
[2024-08-24] MEDS: Melatonin 3 MG TABLET 6 MG PO (20:28)
[2024-08-24 20:34] VITALS: BP 106/72; PULSE 63; RESP 18; TEMP 36.8; O2SAT 96
[2024-08-25 06:06] VITALS: BP 102/64; PULSE 66; RESP 16; TEMP 36.9; O2SAT 97
[2024-08-25] MEDS: Buprenorphine/Naloxone 8/2 mg FILM 1 FILM SUBLINGUAL (08:41)
[2024-08-25] MEDS: QUEtiapine Fumarate 25 MG TABLET 75 MG PO ×3 (08:42→21:43)
[2024-08-25] MEDS: buPROPion HCl XL 300 MG TAB.ER.24H PO (08:42)
[2024-08-25] MEDS: Gabapentin 300 MG CAPSULE PO ×2 (08:42→21:43)
[2024-08-25] MEDS: Thiamine HCL 100 MG TABLET PO (08:42)
[2024-08-25] MEDS: cloNIDine HCL 0.1 MG TABLET PO ×2 (08:42→21:43)
[2024-08-25] MEDS: busPIRone HCl 10 MG TABLET 20 MG PO ×3 (08:42→21:43)
--- NOTE | 2024-08-25 08:50 | MHC.CM.ED ---
Addendum entered by Luda Hillman 08/25/24 13:23: No availability at [facility]. Addendum entered by Luda Hillman 08/25/24 13:15: Started reaching out to Shelters in case CSS bed is not available for patient. Waiting for call back from [facility]. [facility] halfway on [facility] in [place] does not have availability but did accept referral form in case availablity became available. [facility] in [place] has no vacancy. [facility] in [place] has no availability. Waiting for a call back from [facility] in [place]. Original Note: Patient remains in ER overflow. Recovery team is working on CSS placement. Attempted to reach out to Mary from [facility]. Left a voicemail requesting a telephone call for an update. Attempted to reach out to Josh from [facility]. Left a voicemail requesting a telephone call for an update. Continue to monitor for d/c needs.
--- NOTE | 2024-08-25 11:12 | MHC.RECOVSUP ---
Agricultural Equipment Sales Manager Note Plan:? Followed up with [facility] CSS intake, talked to Roberta, she requested Luda Hillman's contact info for more Psyche & Social info. [facility] CSS intake said they expect movement around 08/29-. follow up on Wednesday. [facility] CSS intake said that ppwk received indicates he needs a higher level of care than they provide.
[2024-08-25] MEDS: hydrOXYzine HCL 50 MG TABLET PO ×2 (13:32→18:22)
--- NOTE | 2024-08-25 13:58 | MHC.CM.ED ---
Spoke with Lola of [facility]. An available bed is unlikely until mid week next week. Clinical info faxed to her at [phone] at her request. Continue to monitor for d/c needs.
[2024-08-25 14:48] VITALS: BP 117/77; PULSE 77; RESP 20; TEMP 37.3; O2SAT 93
--- NOTE | 2024-08-25 15:39 | MHC.CM.ED ---
Addendum entered by Luda Hillman 08/25/24 16:11: Per STAR OlsonO, patient can stay overnight and d/c in the morning. Patient, Jody CELESTIN and Sheeba MAYA aware. Original Note: Received notification from Stella Hung CM Director and Stephanie Mark, ER Nurse Director that patient can be discharged to the streets. Met with patient, Pastor Sanchez and Krista CELESTIN CM to provide this information to patient. Patient became upset. Patient asked if he could stay in a closet tonight since it's snowing and cold out. T/W explained that was not an option. Also explained shelters have been called with no availability. Long-Term lists and resource book provided. Also explained city bus is free at this time. Patient attempted to speak to his mother. Patient requested CM call his mother. T/W attempted to speak to Nida via telephone [phone]. Left message requesting return telephone call. SABI Velasco CM also attempted to call. Left message requesting return telephone call. Continue to monitor for d/c needs.
[2024-08-25 19:27] VITALS: BP 138/87; PULSE 71; RESP 18; TEMP 36.9; O2SAT 95
--- NOTE | 2024-08-25 21:20 | MHC.CM.ED ---
Pt mother, Nida Mckeon, returned telephone. Family had a meeting and have decided that Baltazar can come and live with them, as they do not want him discharged to the streets. Mother was asking many questions regarding medical diagnosis. CM explained that she is not the HCP, and that Baltazar is an adult with capacity and that Baltazar can request his records. He will also be discharged with paperwork. Mother asking if patient has syphilis or AIDS. Again, CM told mother that I could not answer that question, but could tell her we did not test for those diseases. Mother was questioning how Baltazar would get to the [facility]. CM suggested they come and pick him up. Mother expressed concerns regarding the reliability of their car to make the trip. CM expalined that all resources were exhausted to find Baltazar a treatment program or rest home. Explained that he would be discharged around 9am. Explained that there are no group home beds tonight. CM will call mother in am regarding transportation arranged by family for Baltazar. CM explained that mother should encourage Baltazar to attend AA/NA and local recovery resources in her area. Explained that Baltazar must do this. Mother concerned about substance abuse starting again. CM did tell mother that she does not have to take Baltazar to her home, that it is her choice, and that CM understands her concerns. Mother states she will take Baltazar to her home. CM spoke with Baltazar about his mothers agreement to take him to her home. He was very negative, stating that she doesn't want him and should have helped him before. States that he might have someone locally to take him, but with Jenna coming, it's difficult. CM explained that he asked CM to call his mother. Explained that he can make his own arrangements, go to his mother's or be discharged to the streets in the morning. Patient asked if CM would continue to look for places for him to go to. CM explained that he would be discharged and he needed to use the resource information we gave him and call facilities daily for beds. Patient then stated You just keep telling me the same stuff . CM then explained that our conversation was over and I would be leaving his room. Pt is aware that he should call his mother and that he will be discharged in the morning. Again, CM called his mother at his request. Pt is pending discharge in the morning.
[2024-08-25 21:43] VITALS: BP 128/69
[2024-08-25] MEDS: traZODone HCL 50 MG TABLET 150 MG PO (21:43)
[2024-08-25] MEDS: Melatonin 3 MG TABLET 6 MG PO (21:43)
[2024-08-26] MEDS: hydrOXYzine HCL 50 MG TABLET PO ×2 (02:04→09:17)
[2024-08-26 05:57] VITALS: BP 109/69; PULSE 64; RESP 16; TEMP 37.1; O2SAT 96
[2024-08-26 08:59] VITALS: BP 110/67; PULSE 80; RESP 16; TEMP 37.3; O2SAT 97
[2024-08-26] MEDS: QUEtiapine Fumarate 25 MG TABLET 75 MG PO (09:06)
[2024-08-26] MEDS: Buprenorphine/Naloxone 8/2 mg FILM 1 FILM SUBLINGUAL (09:06)
[2024-08-26] MEDS: cloNIDine HCL 0.1 MG TABLET PO (09:06)
[2024-08-26] MEDS: busPIRone HCl 10 MG TABLET 20 MG PO (09:07)
[2024-08-26] MEDS: Gabapentin 300 MG CAPSULE PO (09:07)
[2024-08-26] MEDS: Thiamine HCL 100 MG TABLET PO (09:07)
[2024-08-26] MEDS: buPROPion HCl XL 300 MG TAB.ER.24H PO (09:17)
--- NOTE | 2024-08-26 11:16 | MHC.CM.ED ---
Patient remains in ER overflow. Attempted to speak to patient's mother, Nida, via telephone at [phone]. Left message requesting return telephone all. No return call received. Called Nida again at 10am. Nida stated she was in the ER room with high blood pressure and would have to call CM back. T/W explained patient would have to be d/c to her home or the street. Nida handed the phone to her Enrico. Enrico stated he would need to call CM back. T/W explained patient would be d/c'd to the street if an address was not provided by 11am. Enrico called back at 1050am. Enrico asked if any nursing home beds were available. T/W explained no nursing home beds locally. Enrico asked about shelters in [place]. T/W explained patient would have to call if that's what he was interested in. Enrico provided address of [address] in [place]. Lyft ordered. Patient, Nery CELESTIN and Caitlin COLEMAN aware. sent prescriptions to [facility]. Received telephone call from patient's step-sister (unable to provide name). Step-sister tried to explain that patient can not be discharged to their parents house because there mother is in the ER with high blood pressue. T/W attempted to explain patietn would have to be d/c'd to the streets. Step-sister became argumentative. T/W explained the call was ending and hung up phone. Stella Hung CM director aware. Continue to monitor for d/c needs.
[2024-08-26 11:24] VITALS: BP 128/86; PULSE 79; RESP 13; TEMP 36.6; O2SAT 98
== END 2024-08-26 11:36 | disposition home or self-care (01) ==
PROVIDERS: Physician Assistant Medical; Emergency Provider Internal Medicine
DX: F09 Unspecified mental disorder due to known physiological condition (principal); E51.2 Wernicke's encephalopathy; F10.20 Alcohol dependence, uncomplicated; Y90.9 Presence of alcohol in blood, level not specified; Z11.52 Encounter for screening for COVID-19; F32.A Depression, unspecified; F41.9 Anxiety disorder, unspecified; F19.10 Other psychoactive substance abuse, uncomplicated; F11.20 Opioid dependence, uncomplicated; Z59.00 Homelessness unspecified; Z79.899 Other long term (current) drug therapy
CPT/HCPCS: 36415; 80053; 80307; 81003; 83735; 85025; 87635; 97161; 99284; 99285